=== PATIENT | female | born 1970 | race Caucasian/White ===

== ENCOUNTER 2023-08-21 21:19 | Outpatient (REF) | payer MEDICAID, SELFPAY ==
[2023-08-25 10:13] LABS: Age Gdln ACOG Testing Note (.); HPV Aptima Negative (Negative); IGP, Aptima HPV, rfx 16/18,45 Note (.)
== END 2023-08-21 21:20 | disposition home or self-care (01) ==
LOC: LAB 21:19
PROVIDERS: Visit Provider Obstetrics & Gynecology
DX: Z01.419 Encounter for gynecological examination (general) (routine) without abnormal findings (principal)
CPT/HCPCS: 87624; G0145

== ENCOUNTER 2023-09-12 08:04 | Outpatient (OUT) | payer MEDICAID, SELFPAY ==
--- NOTE | 2023-09-12 08:08 | MM_ITS ---
Patient: MESFIN WILLIAMSON Exam Date: 09/12/2023 : 1970 Gender:F Ordering : DR Garth Mcrae . Admission #: [id number] Family : Non-Staff Physician Order #: [id number] CLICK HERE TO VIEW EXAM RADIOLOGY REPORT PROCEDURE: MM TOMOSYNTHESIS SCREENING BI COMPARISON: MG MAMM CHARLES DIAG W CAD DIG, 02/22/2016. MG MAMM CHARLES SCRN W CAD DIG, 09/02/2013. INDICATIONS: Screening for malignant neoplasm Calculator Name NCI Breast Cancer Risk Assessment Tool 5 Year Breast Cancer Risk 0.80% Lifetime Breast Cancer Risk 5.50% Personal Breast Cancer No Personal Ovarian Cancer No Treatments None Family Cancers Father with lung cancer at age 65. LOCATION: [facility] BREAST COMPOSITION: Extremely dense, which lowers the sensitivity of mammography. FINDINGS: DIAGNOSTIC CATEGORY 2--BENIGN FINDING. NO CHANGE FROM COMPARISON. Interval reduction in breast size. Extremely dense nodular parenchymal pattern limits diagnostic sensitivity but is grossly stable.Scattered benign-appearing calcifications are present. Scattered benign-appearing lymph nodes are present. RIGHT BREAST: No significant suspicious finding. LEFT BREAST: No significant suspicious finding. RECOMMENDATIONS: ROUTINE MAMMOGRAM AND CLINICAL EVALUATION IN 12 MONTHS. PLEASE NOTE: A NORMAL MAMMOGRAM DOES NOT EXCLUDE THE POSSIBILITY OF BREAST CANCER. A CLINICALLY SUSPICIOUS PALPABLE LUMP SHOULD BE BIOPSIED. Dictated by: Mariusz Dillon MD on 09/12/2023 at 09:58 Approved by: Mariusz Dillon MD on 09/12/2023 at 09:59
--- NOTE | 2023-09-12 08:08 | XR_ITS ---
[address] [address] Patient Name: MESFIN WILLIAMSON MRN: [id number] date: 1970 Sex: F Assigned Patient Location: [facility] Current Patient Location: [facility] Accession/Order Number: [id number] Exam Date: 09/12/2023 08:30 Report Date: 09/12/2023 09:48 At the request of: MEEK MAHAJAN Procedure: XR DEXA axial skeleton EXAMINATION: XR DEXA axial skeleton, 09/12/2023 8:30 AM EDT HISTORY: Post menopausal state COMPARISON: None. TECHNIQUE: Dual-energy X-ray absorptiometry (DEXA) bone density study performed for the axial skeleton. HISTORY: Post menopausal state FINDINGS: Bone mineral density AP spine L1-L4 measures 1.300 g/sq cm. T score 1.0. WHO classification: Normal. Lowest bone mineral density right femoral trochanter measures 0.619 g/sq cm. T score -2.0. WHO classification: Osteopenia XR/XR DEXA axial skeleton IMPRESSION: Osteopenia. Moderate fracture risk Electronically authenticated by: BIANCA FRIEDMAN Date: 09/12/2023 09:48
== END 2023-09-12 08:05 | disposition home or self-care (01) ==
LOC: MAMMO 08:05
PROVIDERS: Visit Provider Obstetrics & Gynecology
DX: Z12.31 Encounter for screening mammogram for malignant neoplasm of breast (principal); Z78.0 Asymptomatic menopausal state; Z80.1 Family history of malignant neoplasm of trachea, bronchus and lung; M85.80 Other specified disorders of bone density and structure, unspecified site
CPT/HCPCS: 77063; 77067; 77080

== ENCOUNTER 2024-08-26 20:28 | Outpatient (REF) | payer MEDICAID, SELFPAY ==
--- OUTSIDE RECORDS SUMMARY | 2024-08-26 20:33 | XMS_ITS | CCD ---
Author Organization [facility] Inform ion Partnership [facility] Care Team Providers Care Cpas Name Role Phone DR CHRISTI SRINIVASAN Attending Unavailable ZARINA, DR CHRISTI Garcia Consulting Unavailable ZARINA, DR CHRISTI Garcia Primary Care Unavailable ZARINA, DR CHRISTI Garcia Admitting Unavailable KEYSHAWN, DR EDEN Consulting Unavailable KEYSHAWN, DR EDEN Admitting Unavailable KEYSHAWN, DR EDEN Attending Unavailable ZARINA, DR CHRISTI Garcia Primary Care Unavailable Grace Momin. Primary Care Physician [phone] AKILA SHARMA Attending Unavailable GRACE MOMIN Referring Unavailable Grace Momin Attending Unavailable Grace Momin Attending Unavailable Grace Momin Attending Unavailable Grace Momin. Attending Unavailable Grace Momin Attending Unavailable Grace Momin Attending Unavailable Grace Momin Attending Unavailable Grace Momin Attending Unavailable Grace Momin Referring Unavailable Aubrey Glass Attending Unavailable Grace Momin Referring Unavailable Grace Momin Admitting Unavailable Grace Momin Attending Unavailable Allergies Allergy Classification Reported Allergen(s) Allergy Type Date of Onset Reaction(s) Facility Aspirin (1 source) Aspirin; Translations: [aspirin] Drug Allergy Unknown (qualifier value) [facility] (2 sources) Aspirin; Translations: [aspirin] Drug Allergy 3 [facility] (1 source) Codeine Drug Allergy [facility] (1 source) metroNIDAZOLE Drug Allergy [facility] (2 sources) Aspirin; Translations: [aspirin] Drug Allergy Unknown (qualifier value) [facility] Medications Current Medications Medication Drug Class(es) Dates Sig (Normalized) Sig (Original) amLODIPine 5 mg oral tablet (1 source) Dihydropyridine Calcium Channel Ann Start: 02-25-20 take 1 tablet by mouth once daily Norvasc 5 mg Tab 5 mg = 1 tab(s), Oral, Daily, # 90 tab(s), Refills(s) 0, Pharmacy: [facility]/pharmacy #[id number], 167.1, cm, 02/25/24 11:22:00 EDT, Height/Length Dosing, 55.7, kg, 02/25/24 11:22:00 EDT, Weight Dosing Start Date: 02/25/24 Status: Ordered Ascorbic Acid (2 sources) Vitamin C Start: 04-04-20 Vitamin C Refills(s) 0 Start Date: 04/04/24 Status: Ordered hydroCHLOROthiazide 25 mg oral tablet (3 sources) Thiazide Diuretic Start: 04-03-20 take 1 tablet by mouth once daily hydrochlorothiazide 25 mg Tab 25 mg = 1 tab(s), Oral, Daily, # 90 tab(s), Refills(s) 0, [id number], cm, 04/03/24 8:54:00 EDT, Height/Length Dosing, 53.5, kg, 04/03/24 8:54:00 EDT, Weight Dosing Start Date: 04/03/24 Status: Ordered Start: 01-14-2024 take 1 tablet by leslye th once daily hydrochlorothiazide 25 mg Tab 25 mg = 1 tab(s), Oral, Daily, # 90 tab(s), Refills(s) 0, Pharmacy: [facility]/pharmacy #[id number], 167.1, cm, 01/14/24 9:37:00 EST, Height/Length Dosing, 56.1, kg, 01/14/24 9:37:00 EST, Weight Dosing Start Date: 01/14/24 Status: Ordered losartan potassium 100 mg oral tablet (3 sources) Angiotensin 2 Receptor Ann Start: 04-03-2024 take 1 tablet by mouth once daily losartan 100 mg Tab 100 mg = 1 tab(s), Oral, Daily, # 90 tab(s), Refills(s) 0, Pharmacy: [facility]/pharmacy #[id number], 167, cm, 04/03/24 8:54:00 EDT, Height/Length Dosing, 53.5, kg, 04/03/24 8:54:00 EDT, Weight Dosing Start Date: 04/03/24 Status: Ordered Start: 01-14-2024 take 1 tablet by leslye th once daily losartan 100 mg Tab 100 mg = 1 tab(s), Oral, Daily, # 90 tab(s), Refills(s) 0, Pharmacy: [facility]/pharmacy #[id number], 167.1, cm, 01/14/24 9:37:00 EST, Height/Length Dosing, 56.1, kg, 01/14/24 9:37:00 EST, Weight Dosing Start Date: 01/14/24 Status: Ordered potassium chloride 10 meq extended release oral capsule (2 sources) Start: 04-04-2024 potassium chlo ride 10 mEq Cap-ER Refills(s) 0 Start Date: 04/04/24 Status: Ordered rimegepant 75 mg disintegrating oral tablet (3 sources) Start: 02-25-2024 take 1 tablet by mouth once Nurtec ODT 75 mg oral tablet, disintegrating 75 mg = 1 tab(s), Oral, Once, # 14 tab(s), Refills(s) 0, [id number] 167.[facility], cm, 02/25/24 11:22:00 EDT, Height/Length Dosing, 55.7, kg, 02/25/24 11:22:00 EDT, Weight Dosing Start Date: 02/25/24 Status: Ordered Problems Problem Classification Problem Date Documented Da te Episodic/Chronic Anxiety disorders (3 sources) Anxiety 03-28-2023 Chronic Essential hypertension (4 sources) Hypertensive disorder; Translations: [Essential hypertension] Onset: 04-04-2024 01-14-2024 Chronic Headache; including migraine (6 sources) Migraine 01-14-2024 Chronic Immunizations and screening for infectious disease (1 source) Encounter for screening for human papillomavirus (HPV); Translations: [ENC SCREENING HUMAN PAPILLOMAVIRUS] Onset: 08-17-2022 Episodic Malaise and fatigue (10 sources) Other fatigue; Translations: [Fatigue] Onset: 10-09-2022 Episodic Mood disorders (3 sources) Depressive disorder 03-28-2023 Chronic Osteoarthritis (3 sources) Osteoarthritis 02-25-2024 Chronic Other nervous system disorders (3 sources) Carpal tunnel syndrome 03-28-2023 Chronic Other nutritional; endocrine; and metabolic disorders (1 source) Abnormal weight loss; Translations: [ABNORMAL WEIGHT LOSS] Onset: 10-14-2022 Episodic Other screening for suspected conditions (not mental disorders or infectious disease) (5 sources) Encounter for screening for malignant neoplasm of cervix; Translations: [Abnormal results of cardiovascular function studies] Onset: 08-15-2022 Episodic Peripheral and visceral atherosclerosis (3 sources) Peripheral vascular disease 03-28-2023 Chronic Varicose veins of lower extremity (3 sources) Varicose veins of lower extremity 03-28-2023 Episodic Results Test Name Value Interpretation Reference Range Facility Family Medicine Office/Clini c Noteon 07-07-2024 Family Medicine Office/Clinic Note Family Medicine Office/Clinic Note HPI Staff Camryn is a 53 year old female presenting for one month follow up migraines, htn Patient is here for follow up on hypertension. How often are you checking your blood pressure? occasionally What are your average readings? _ Yearly BMP: none_ Headaches: Time of Onset: yesterday but it's gone Location: not addressed _ _ _ Typical headache frequency: couple times a week Prior headache work-up: none _ _ phq:4 phq9: 12 questions/concerns: is depressed would like something for it used to take amitriptylline or anything you feel is good and would help her gain weight History of Present Illness See staff HPI. Review of Systems PHQ Score Initial Depression Screen Score: 4 SCORE Detailed Depression Screen Score: 8 Total Depression Screen Score: 12 Physical Exam Vitals & Measurements T: 36.6 ?C(Temporal Artery) HR: 76(Peripheral) RR: 16 BP: 102/70 SpO2: 98% HT: 66 in HT: 167 cm WT: 51.6 kg WT: 113.52 lb BMI: 18.5 General: alert, no acute distress ENMT: oral mucosa moist, Cardiovascular: regular rate and rhythm, normal peripheral perfusion Respiratory: Lungs CTA, respirations non labored Extremities: no deformity, no trauma Neurological: oriented x 4, LOC appropriate for age, CN II-XII intact, motor strength equal & normal bilaterally, speech normal Abdomen: Soft, Nontender, Non-distended, + BS Assessment/Plan 1. HTN (hypertension) (I10: Essential (primary) hypertension) At goal at this time. Will continue monitoring. Ordered: escitalopram, 10 mg = 1 tab(s), Oral, Daily, # 90 tab(s), Refills(s) 0, Pharmacy: [facility]/pharmacy #[id number], 167, cm, 07/07/24 16:12:00 EDT, Height/Length Dosing, 51.6, kg, 07/07/24 16:12:00 EDT, Weight Dosing Body Mass Index (BMI) documented 3008F Current tobacco smoker 1034F Depression Screening Positive 3354F Influenza immunization administered or previously received 4274F Most recent diastolic blood pressure <80 mm Hg 3078F Systolic BP <130 mm Hg (Most Recent) 3074F 2. Migraine (G43.909: Migraine, unspecified, not intractable, without status migrainosus) Will do [place]anner[place] samples as able to. Patient responds very well to this. Ordered: escitalopram, 10 mg = 1 tab(s), Oral, Daily, # 90 tab(s), Refills(s) 0, Pharmacy: [facility]/pharmacy #[id number], 167, cm, 07/07/24 16:12:00 EDT, Height/Length Dosing, 51.6, kg, 07/07/24 16:12:00 EDT, Weight Dosing Body Mass Index (BMI) documented 3008F Current tobacco smoker 1034F Depression Screening Positive 3354F Influenza immunization administered or previously received 4274F Most recent diastolic blood pressure <80 mm Hg 3078F Systolic BP <130 mm Hg (Most Recent) 3074F 3. BMI less than 19,adult (Z68.1: Body mass index [BMI] 19.9 or less, adult) Discussed diet and exercise. Ordered: escitalopram, 10 mg = 1 tab(s), Oral, Daily, # 90 tab(s), Refills(s) 0, Pharmacy: [facility]/pharmacy #[id number], 167, cm, 07/07/24 16:12:00 EDT, Height/Length Dosing, 51.6, kg, 07/07/24 16:12:00 EDT, Weight Dosing Body Mass Index (BMI) documented 3008F Current tobacco smoker 1034F Depression Screening Positive 3354F Influenza immunization administered or previously received 4274F Most recent diastolic blood pressure <80 mm Hg 3078F Systolic BP <130 mm Hg (Most Recent) 3074F 4. Smoker (F17.200: Nicotine dependence, unspecified, uncomplicated) Encouraged the patient to stop smoking. Discussed with patient if she continues to lose weight we will need to do a CT head abdomen and pelvis. Patient does not want to do this at this time. Ordered: escitalopram, 10 mg = 1 tab(s), Oral, Daily, # 90 tab(s), Refills(s) 0, Pharmacy: [facility]/pharmacy #[id number], 167, cm, 07/07/24 16:12:00 EDT, Height/Length Dosing, 51.6, kg, 07/07/24 16:12:00 EDT, Weight Dosing Body Mass Index (BMI) documented 3008F Current tobacco smoker 1034F Depression Screening Positive 3354F Influenza immunization administered or previously received 4274F Most recent diastolic blood pressure <80 mm Hg 3078F Systolic BP <130 mm Hg (Most Recent) 3074F 5. Depression (F32.A: Depression, unspecified) Will do Lexapro. Follow-up in 6 weeks. Patient did not want to talk about what was causing her depression today. Ordered: escitalopram, 10 mg = 1 tab(s), Oral, Daily, # 90 tab(s), Refills(s) 0, Pharmacy: [facility]/pharmacy #[id number], 167, cm, 07/07/24 16:12:00 EDT, Height/Length Dosing, 51.6, kg, 07/07/24 16:12:00 EDT, Weight Dosing Orders: metoprolol, 25 mg = 1 tab(s), Oral, Daily, # 30 tab(s), Refills(s) 0, Pharmacy: [facility]/pharmacy #[id number], 167, cm, 06/05/24 9:44:00 EDT, Height/Length Dosing, 52.7, kg, 06/05/24 9:44:00 EDT, Weight Dosing metoprolol, 25 mg = 1 tab(s), Oral, Daily, # 90 tab(s), Refills(s) 1, Pharmacy: [facility]/pharmacy #[id number], 167, cm, 06/05/24 9:44:00 EDT, Height/Length Dosing, 52.7, kg, 06/05/24 9:44:00 EDT, Weight Dosing Follow-up No qualifying data available Patient Education BMI for Adults Problem List/Past Medical History Ongoing Anxiety (more content not included)... Normal [facility] Comment on above: Result Comment: Elec tronically Signed By: Grace Momin MD\.br\Date and Time Signed: 07/07/24 16:45 EDT Ambulatory Visit Summaryon 0 06-05-2024 Ambulatory Visit Summary Ambulatory Visit Summary CAMRYN WILLIAMSON :1970 Visit Date:06/05/2024 Ambulatory Visit Instructions Your Diagnosis HTN (hypertension) Migraine BMI less than 19,adult Smoker Your Care Team Attending Physician - Grace Momin MD Primary Care Physician - Grace Momin MD This Is Your Medications List ascorbic acid (Vitamin C) hydrochlorothiazide (hydrochlorothiazide 25 mg Tab) losartan (losartan 100 mg Tab) potassium chloride (potassium chloride 10 mEq Cap-ER) rimegepant (Nurtec ODT 75 mg oral tablet, disintegrating) Procedures Performed Bilateral tubal ligation, Breast surgery, Dilatation, History of hysterectomy, Laparoscopy. Discharge Vitals Temperature (Oral) 36.8 ?C Heart Rate (Peripheral) 86 Respiratory Rate 16 Blood Pressure 160/92 Height 167 cm Height 66 in Weight 52.7 kg Weight 115.94 lb BMI 18.9 What to do next Scheduled Follow-Up Appointments 2023 1:00 PM EDT With: Grace Momin MD Where: [facility] [address] [address]- Medications What How Much When Why Instructions Unchanged ascorbic acid (Vitamin C) Unchanged hydrochlorothiazide (hydrochlorothiazide 25 mg Tab) 1 Tablets By Mouth Every day Migraine HTN (hypertension) BMI 20.0-20.9, adult Smoker PVD (peripheral vascular disease) Anxiety Depression Unchanged losartan (losartan 100 mg Tab) 1 Tablets By Mouth Every day Migraine HTN (hypertension) BMI 20.0-20.9, adult Smoker PVD (peripheral vascular disease) Anxiety Depression Unchanged potassium chloride (potassium chloride 10 mEq Cap-ER) Unchanged rimegepant (Nurtec ODT 75 mg oral tablet, disintegrating) 1 Tablets By Mouth Once Allergies aspirin (Unknown) Problems Ongoing - Any problem that you are currently receiving treatment for. Anxiety Carpal tunnel syndrome Decreased stamina Depression Fatigue HTN (hypertension) Migraine Migraines Nonhealing skin ulcer Osteoarthritis PVD (peripheral vascular disease) Shingles Varicose veins of legs Patient Survey You may receive a survey via text or e-mail asking about your office visit. Please share your experience with us by completing your survey. We appreciate your feedback and thank you for choosing us for your care. Jenifer Estrella [facility] Family Medicine Office/Clini c Noteon 06-05-2024 Family Medicine Office/Clinic Note Family Medicine Office/Clinic Note HPI Staff Camryn is a 53 year old female presenting for 2 month follow up htn and migraines Patient is here for follow up on hypertension. How often are you checking your blood pressure? couple times a week What are your average readings? 140-160's over 71 Yearly BMP: ?? Headaches: Time of Onset: had one yesterday not today Location: not addressed frontal behind eyes_ _ _ Typical headache frequency: couple times a week Prior headache work-up: none _ questions/concerns: on back where had shingles, she has area where she doesn't have any feeling there. The shingles did clear up and didn't get any worse after seen here History of Present Illness - See staff HPI. Review of Systems PHQ Score Initial Depression Screen Score: 0 SCORE Physical Exam Vitals & Measurements T: 36.8 ?C(Oral) HR: 86(Peripheral) RR: 16 BP: 160/92 SpO2: 98% HT: 66 in HT: 167 cm WT: 52.7 kg WT: 115.94 lb BMI: 18.9 General: alert, no acute distress ENMT: oral mucosa moist, Cardiovascular: regular rate and rhythm, normal peripheral perfusion Respiratory: Lungs CTA, respirations non labored Extremities: no deformity, no trauma Neurological: oriented x 4, LOC appropriate for age, CN II-XII intact, motor strength equal & normal bilaterally, speech normal Abdomen: Soft, Nontender, Non-distended, + BS Assessment/Plan 1. HTN (hypertension) (I10: Essential (primary) hypertension) - Not at goal. - Use BB to help with Bps and Migraines Ordered: Body Mass Index (BMI) documented 3008F Current tobacco smoker 1034F Depression Screening Negative 3352F Influenza immunization administered or previously received 4274F Most recent diastolic blood pressure >=90 mm Hg 3080F Most recent systolic blood pressure >= 140 mm Hg 3077F 2. Migraine (G43.909: Migraine, unspecified, not intractable, without status migrainosus) - Will try Nurtec again as its preferrred first line. - Pt had great releif with samples - Pt states 18 migraine days this month Ordered: Body Mass Index (BMI) documented 3008F Current tobacco smoker 1034F Depression Screening Negative 3352F Influenza immunization administered or previously received 4274F Most recent diastolic blood pressure >=90 mm Hg 3080F Most recent systolic blood pressure >= 140 mm Hg 3077F 3. BMI less than 19,adult (Z68.1: Body mass index [BMI] 19.9 or less, adult) Ordered: Body Mass Index (BMI) documented 3008F Current tobacco smoker 1034F Depression Screening Negative 3352F Influenza immunization administered or previously received 4274F Most recent diastolic blood pressure >=90 mm Hg 3080F Most recent systolic blood pressure >= 140 mm Hg 3077F 4. Smoker (F17.200: Nicotine dependence, unspecified, uncomplicated) - Pt is down to 5 cigs a day. Goal is to be off in 1 month. Ordered: Body Mass Index (BMI) documented 3008F Current tobacco smoker 1034F Depression Screening Negative 3352F Influenza immunization administered or previously received 4274F Most recent diastolic blood pressure >=90 mm Hg 3080F Most recent systolic blood pressure >= 140 mm Hg 3077F Orders: metoprolol, 25 mg = 1 tab(s), Oral, Daily, # 30 tab(s), Refills(s) 0, Pharmacy: [facility]/pharmacy #[id number], 167, cm, 06/05/24 9:44:00 EDT, Height/Length Dosing, 52.7, kg, 06/05/24 9:44:00 EDT, Weight Dosing rimegepant, 75 mg = 1 tab(s), Oral, Once, # 14 tab(s), Refills(s) 0, Pharmacy: [facility]/pharmacy #[id number], 167, cm, 06/05/24 9:44:00 EDT, Height/Length Dosing, 52.7, kg, 06/05/24 9:44:00 EDT, Weight Dosing Follow-up No qualifying data available Patient Education Hypertension, Adult Problem List/Past Medical History Ongoing Anxiety Carpal tunnel syndrome Decreased stamina Depression Fatigue HTN (hypertension) Migraine Migraines Nonhealing skin ulcer Osteoarthritis PVD (peripheral vascular disease) Shingles Varicose veins of legs Historical No qualifying data Procedure/Surgical History Bilateral tubal ligation, Breast surgery, Dilatation, History of hysterectomy, Laparoscopy. Medications hydrochlorothiazide 25 mg Tab, 25 mg= 1 tab(s), Oral, Daily losartan 100 mg Tab, 100 mg= 1 tab(s), Oral, Daily metoprolol succinate 25 mg ER Tab, 25 mg= 1 tab(s), Oral, Daily Nurtec ODT 75 mg oral tablet, disintegrating, 75 mg= 1 tab(s), Oral, Once potassium chloride 10 mEq Cap-ER Vitamin C Allergies aspirin (Unknown) Social History Tobacco 4 or less cigarettes(less than 1/4 pack)/day in last 30 days Tobacco Use:. Cigarettes, 06/05/2024 Family History Acute myocardial infarction: Mother. Alcoholism: Father and Brother. Hypertension: Mother. Immunizations Vaccine Date Status influenza virus vaccine, inactivated 08/12/2023 Recorded zoster vaccine, inactivated 01/20/2023 Recorded zoster vaccine, inactivated 10/04/2022 Recorded pneumococcal 20-valent conjugate vaccine 09/04/2022 Recorded influenza virus vaccine, inactivated 08/28 (more content not included)... Normal [facility] Comment on above: Result Comment: Elec tronically Signed By: Davi ROBLES, Grace Pittman\.br\Date and Time Signed: 06/05/24 09:54 EDT Physician Referralon 024 Physician Referral [phone] 022 [id number] TIFF Normal [facility] Family Medicine Office/Clini c Noteon 05-05-2024 Family Medicine Office/Clinic Note HPI Staff Camryn is a 53 year old female presenting for acute visit Acute: rash on breast, ? shingles and feels she pulled a muscle in her shoulder Onset: started as a couple bumps/bites, then under the right breast and around the side, been there about a week and a half. some pain/burning on Then shampooed carpets the other day and her shoulder hurts, not sure if it's the muscle or if it's the bumps causing the shoulder pain Also spot near right ankle, raw area been there for years History of Present Illness - See staff HPI. Review of Systems PHQ Score Initial Depression Screen Score: 0 SCORE Physical Exam Vitals & Measurements T: 36.7 ?C(Temporal Artery) HR: 82(Peripheral) RR: 16 BP: 152/80 SpO2: 98% HT: 66 in HT: 167 cm WT: 53.6 kg WT: 117.92 lb BMI: 19.22 Papular vesciclar Rash noted in a dermatomal spread on the L T4 line - Shallow ulcer noted on the L medial aspect of the foot. Assessment/Plan 1. Shingles (B02.9: Zoster without complications) - Will add steriods - No antivirals at this time as its been almost a week. - Pain control with Steroids Ordered: methylPREDNISolone, = 1 packet(s), Oral, As Directed, as directed on package labeling, X 6 day(s), # 21 tab(s), Refills(s) 0, Pharmacy: [id number], 167, cm, 05/05/24 18:15:00 EDT, Height/Length Dosing, 53.6, kg, 05/05/24 18:15:00 EDT, Weight Dosing Body Mass Index (BMI) documented 3008F Current tobacco smoker 1034F Depression Screening Negative 3352F [facility] [place] Influenza immunization administered or previously received 4274F Most recent diastolic blood pressure 80-89 mm Hg 3079F Most recent systolic blood pressure >= 140 mm Hg 3077F 2. HTN (hypertension) (I10: Essential (primary) hypertension) - Elevated today but patient had fear of getting a shot. - Will recheck in 1 month Ordered: methylPREDNISolone, = 1 packet(s), Oral, As Directed, as directed on package labeling, X 6 day(s), # 21 tab(s), Refills(s) 0, Pharmacy: [id number], 167, cm, 05/05/24 18:15:00 EDT, Height/Length Dosing, 53.6, kg, 05/05/24 18:15:00 EDT, Weight Dosing Body Mass Index (BMI) documented 3008F Current tobacco smoker 1034F Depression Screening Negative 3352F [facility] [place] Influenza immunization administered or previously received 4274F Most recent diastolic blood pressure 80-89 mm Hg 3079F Most recent systolic blood pressure >= 140 mm Hg 3077F 3. Nonhealing skin ulcer (L98.499: Non-pressure chronic ulcer of skin of other sites with unspecified severity) - Will send to derm as I am unsure what caused this. - With it not healing for over a year I am concern what the cause could be Ordered: methylPREDNISolone, = 1 packet(s), Oral, As Directed, as directed on package labeling, X 6 day(s), # 21 tab(s), Refills(s) 0, Pharmacy: [facility]/pharmacy #[id number], 167, cm, 05/05/24 18:15:00 EDT, Height/Length Dosing, 53.6, kg, 05/05/24 18:15:00 EDT, Weight Dosing Body Mass Index (BMI) documented 3008F Current tobacco smoker 1034F Depression Screening Negative 3352F [facility] [place] Ref[place] Influenza immunization administered or previously received 4274F Most recent diastolic blood pressure 80-89 mm Hg 3079F Most recent systolic blood pressure >= 140 mm Hg 3077F 4. Body mass index (BMI) of 19 or less in adult (Z68.1: Body mass index [BMI] 19.9 or less, adult) Ordered: methylPREDNISolone, = 1 packet(s), Oral, As Directed, as directed on package labeling, X 6 day(s), # 21 tab(s), Refills(s) 0, Pharmacy: [facility]/pharmacy #[id number], 167, cm, 05/05/24 18:15:00 EDT, Height/Length Dosing, 53.6, kg, 05/05/24 18:15:00 EDT, Weight Dosing Body Mass Index (BMI) documented 3008F Current tobacco smoker 1034F Depression Screening Negative 3352F Influenza immunization administered or previously received 4274F Most recent diastolic blood pressure 80-89 mm Hg 3079F Most recent systolic blood pressure >= 140 mm Hg 3077F 5. Smoker (F17.200: Nicotine dependence, unspecified, uncomplicated) Ordered: methylPREDNISolone, = 1 packet(s), Oral, As Directed, as directed on package labeling, X 6 day(s), # 21 tab(s), Refills(s) 0, Pharmacy: [facility]/pharmacy #[id number], 167, cm, 05/05/24 18:15:00 EDT, Height/Length Dosing, 53.6, kg, 05/05/24 18:15:00 EDT, Weight Dosing Body Mass Index (BMI) documented 3008F Current tobacco smoker 1034F Depression Screening Negative 3352F Influenza immunization administered or previously received 4274F Most recent diastolic blood pressure 80-89 mm Hg 3079F Most recent systolic blood pressure >= 140 mm Hg 3077F Follow-up No qualifying data available Patient Education Hypertension, Adult Problem List/Past Medical History Ongoing Anxiety Carpal tunnel syndrome Decreased stamina Depression Fatigue HTN (hypertension) Migraine Migraines Nonhealing skin ulcer Osteoarthritis PVD (peripheral vascular disease) Shingles Varicose veins of legs Historical No qualifying (more content not included)... Normal [facility] Comment on above: Result Comment: Elec tronically Signed By: Davi ROBLES, Grace Pittman\.br\Date and Time Signed: 05/05/24 18:25 EDT Patient Educationon 05-05-20 Patient Education Cardiovascular Hypertension, Adult High blood pressure (hypertension) is when the force of blood pumping through the arteries is too strong. The arteries are the blood vessels that carry blood from the heart throughout the body. Hypertension forces the heart to work harder to pump blood and may cause arteries to become narrow or stiff. Untreated or uncontrolled hypertension can lead to a heart attack, heart failure, a stroke, kidney disease, and other problems. A blood pressure reading consists of a higher number over a lower number. Ideally, your blood pressure should be below 120/80. The first ( top ) number is called the systolic pressure. It is a measure of the pressure in your arteries as your heart beats. The second ( bottom ) number is called the diastolic pressure. It is a measure of the pressure in your arteries as the heart relaxes. What are the causes? The exact cause of this condition is not known. There are some conditions that result in high blood pressure. What increases the risk? Certain factors may make you more likely to develop high blood pressure. Some of these risk factors are under your control, including: ? Smoking. ? Not getting enough exercise or physical activity. ? Being overweight. ? Having too much fat, sugar, calories, or salt (sodium) in your diet. ? Drinking too much alcohol. Other risk factors include: ? Having a personal history of heart disease, diabetes, high cholesterol, or kidney disease. ? Stress. ? Having a family history of high blood pressure and high cholesterol. ? Having obstructive sleep apnea. ? Age. The risk increases with age. What are the signs or symptoms? High blood pressure may not cause symptoms. Very high blood pressure (hypertensive crisis) may cause: ? Headache. ? Fast or irregular heartbeats (palpitations). ? Shortness of breath. ? Nosebleed. ? Nausea and vomiting. ? Vision changes. ? Severe chest pain, dizziness, and seizures. How is this diagnosed? This condition is diagnosed by measuring your blood pressure while you are seated, with your arm resting on a flat surface, your legs uncrossed, and your feet flat on the floor. The cuff of the blood pressure monitor will be placed directly against the skin of your upper arm at the level of your heart. Blood pressure should be measured at least twice using the same arm. Certain conditions can cause a difference in blood pressure between your right and left arms. If you have a high blood pressure reading during one visit or you have normal blood pressure with other risk factors, you may be asked to: ? Return on a different day to have your blood pressure checked again. ? Monitor your blood pressure at home for 1 week or longer. If you are diagnosed with hypertension, you may have other blood or imaging tests to help your health care provider understand your overall risk for other conditions. How is this treated? This condition is treated by making healthy lifestyle changes, such as eating healthy foods, exercising more, and reducing your alcohol intake. You may be referred for counseling on a healthy diet and physical activity. Your health care provider may prescribe medicine if lifestyle changes are not enough to get your blood pressure under control and if: ? Your systolic blood pressure is above 130. ? Your diastolic blood pressure is above 80. Your personal target blood pressure may vary depending on your medical conditions, your age, and other factors. Follow these instructions at home: Eating and drinking ? Eat a diet that is high in fiber and potassium, and low in sodium, added sugar, and fat. An example of this eating plan is called the DASH diet. DASH stands for Dietary Approaches to Stop Hypertension. To eat this way: ? Eat plenty of fresh fruits and vegetables. Try to fill one half of your plate at each meal with fruits and vegetables. ? Eat whole grains, such as whole-wheat pasta, brown rice, or whole-grain bread. Fill about one fourth of your plate with whole grains. ? Eat or drink low-fat dairy products, such as skim milk or low-fat yogurt. ? Avoid fatty cuts of meat, processed or cured meats, and poultry with skin. Fill about one fourth of your plate with lean proteins, such as fish, chicken without skin, beans, eggs, or tofu. ? Avoid pre-made and processed foods. These tend to be higher in sodium, added sugar, and fat. ? Reduce your daily sodium intake. Many people with hypertension should eat less than 1,500 mg of sodium a day. ? Do not drink alcohol if: ? Your health care provider tells you not to drink. ? You are , may be , or are planning to become . ? If you drink alcohol: ? Limit how much you have to: ? 0?1 drink a day for women. ? 0?2 drinks a day for men. ? Know how much alcohol is in your drink. In the [place] one drink equals one 12 oz bottle of beer (355 mL), one 5 oz glass of wine (148 mL), or one 1? oz glass (more content not included)... Normal [facility] ECG 12-Leadon 04-04-2024 ECG 12-Lead [id number] IFF Normal [facility] Heart and Vascular Office/Cl inic Noteon 04-04-2024 Heart and Vascular Office/Clinic Note Chief Complaint here to establish care - abn lexiscan History of Present Illness The patient is a 53-year-old female with no prior history of coronary artery disease, with past medical history of hypertension, who presents for cardiac evaluation following a myocardial perfusion imaging study, which was ordered in a context of dizziness and lightheadedness. She specifically reports no chest pain, shortness of breath, palpitations, syncope or presyncope. She does admit to significant weakness, dizziness and lightheadedness, following the initiation of antihypertensive therapy. Family history is notorious for coronary artery disease in her mother, who, according to her, had an open heart surgery in her 60s. Review of Systems ROS - Provider Constitutional: no fever, no chills, no fatigue Skin:no rash, no lesions ENMT: no ear pain, no sore throat, no congestion. Respiratory: no shortness of breath, no cough, no wheezing. Cardiovascular: no chest pain, no palpitations, no edema. Gastrointestinal: no nausea, no vomiting, no diarrhea, no GI bleeding. Genitourinary: no dysuria, no frequencyno hematuria Musculoskeletal: no back pain, no trauma. Neurologic: no headache, yes dizziness, no numbness, no weakness. Psychiatric: no sleeping problems, no irritability, no mood swings/depression. Heme/Lymph: no bleeding tendency, no bruising tendency, no petechiae, Allergy/Immuno logic: no seasonal allergies, no food allergies, no recurrent infections Physical Exam Vitals & Measurements HR: 94(Peripheral) BP: 138/90 SpO2: 99% HT: 66 in HT: 167 cm WT: 53.5 kg WT: 117.7 lb BMI: 19.18 General: alert, no acute distress Neck: Supple, noJVD nocarotid bruit Cardiovascular: regular rate and rhythm, no murmur normal peripheral perfusion Respiratory: Lungs CTAB, respirations non labored Extremities: no edema left lower extremity. no edema right lower extremity Neurological: oriented x 4, LOC appropriate for age, speech normal Skin: Warm, dry, intact- no rash or concerning lesions Procedure (03/27/2024 15:53 EDT NM Myocardial Spect Rest/Stress 1 Day) DATE: 03/27/2024 PROCEDURE: Lexiscan nuclear stress test. REFERRING PHYSICIAN: Grace Momin M.D. INDICATIONS: Coronary artery disease. PROCEDURE DETAILS: The patient was stressed according to the Lexiscan protocol without events. The patient received Lexiscan infusion and did not have any symptoms. The blood pressure and heart rate response were appropriate. EKG was normal sinus rhythm and normal EKG. During infusion there were no EKG changes. There was no arrhythmia. Recovery was normal. The patient received 9.2 mCi of Cardiolite for rest images and 29.7 mCi of Cardiolite for stress images. Review of raw images did not demonstrate motion or attenuation artifact. FINDINGS: Uptake of the tracer was homogeneous with no identifiable ischemia or infarction. The TID ratio was 1.26. Ejection fraction was 64%. End-diastolic volume was 80 mL. CONCLUSIONS: Negative Lexiscan nuclear stress test for ischemia or infarction. Borderline elevated TID at 1.26 of uncertain clinical significance. Due to elevated TID, overall this would be an intermediate-risk stress test. cc: Grace Momin M.D. [1] Assessment/Plan 1. Equivocal stress test (R94.39: Abnormal result of other cardiovascular function study) The stress test was independently reviewed. There is no evidence of clear-cut ischemic. Transient ischemic dilatation is present, however, is borderline. At this juncture, I would like to order a plain exercise stress test to evaluate exercise tolerance, blood pressure dynamics. I have a suspicion that the patient's symptoms are related to antihypertensive therapy and normalization of her blood pressure. 2. HTN (hypertension) (I10: Essential (primary) hypertension) Blood pressure is managed by primary services. It is well-controlled. Follow-up No qualifying data available After the stress test Problem List/Past Medical History Ongoing Anxiety Carpal tunnel syndrome Decreased stamina Depression Fatigue HTN (hypertension) Migraine Migraines Osteoarthritis PVD (peripheral vascular disease) Varicose veins of legs Historical No qualifying data Procedure/Surgical History Bilateral tubal ligation, Breast surgery, Dilatation, History of hysterectomy, Laparoscopy. Medications hydrochlorothiazide 25 mg Tab, 25 mg= 1 tab(s), Oral, Daily losartan 100 mg Tab, 100 mg= 1 tab(s), Oral, Daily Nurtec ODT 75 mg oral tablet, disintegrating, 75 mg= 1 tab(s), Oral, Once, Unable to obtain: getting samples potassium chloride 10 mEq Cap-ER Vitamin C Allergies aspirin (Unknown) Social History Tobacco 4 or less cigarettes(less than 1/4 pack)/day in last 30 days Tobacco Use:. Cigarettes, 04/04/2024 Family History Acute myocardial infarction: Mother. Alcoholism: Father and Brother. Hypertension: Mother. Immunizations Vaccine Date Status influenza vir (more content not included)... Normal [facility] Comment on above: Result Comment: Elec tronically Signed By: Quan ROBLES, Aubrey Amor\.perico\Date and Time Signed: 04/04/24 11:14 EDT Physician Orderon 04-04-2024 Physician Order [id number] IFF Normal [facility] Ambulatory Visit Summaryon 0 04-03-2024 Ambulatory Visit Summary CAMRYN WILLIAMSON :1970 Visit Date:04/03/2024 Ambulatory Visit Instructions Your Diagnosis HTN (hypertension) Migraine PVD (peripheral vascular disease) Decreased stamina Smoker BMI less than 19,adult Your Care Team Attending Physician - Grace Momin MD Primary Care Physician - Grace Momin MD This Is Your Medications List hydrochlorothiazide (hydrochlorothiazide 25 mg Tab) losartan (losartan 100 mg Tab) rimegepant (Nurtec ODT 75 mg oral tablet, disintegrating) [Image Removed: STOP]Stop taking these medications amlodipine (Norvasc 5 mg Tab) Procedures Performed Bilateral tubal ligation, Breast surgery, Dilatation, History of hysterectomy, Laparoscopy. Discharge Vitals Temperature (Oral) 36.5 ?C Heart Rate (Peripheral) 80 Respiratory Rate 16 Blood Pressure 136/82 Height 167 cm Height 66 in Weight 53.5 kg Weight 117.7 lb BMI 19.18 What to do next Scheduled Follow-Up Appointments 2023 9:30 AM EDT With: Grace Momin MD Where: [facility] [place] Invalid Interpretation Code Smoker [facility] Family Medicine Office/Clini c Noteon 04-03-2024 Family Medicine Office/Clinic Note HPI Staff Camryn is a 53 year old female presenting to discuss medication optimization after her recent stress test phq9: 4 questions/concerns: would like some nurteq samples if we have them, they worked well for her and insurance won't cover. No samples available trying the ubrelvy #6 given to patient History of Present Illness - See staff HPI Physical Exam Vitals & Measurements T: 36.5 ?C(Oral) HR: 80(Peripheral) RR: 16 BP: 136/82 SpO2: 98% HT: 66 in HT: 167 cm WT: 53.5 kg WT: 117.7 lb BMI: 19.18 General: alert, no acute distress ENMT: oral mucosa moist, Cardiovascular: regular rate and rhythm, normal peripheral perfusion Respiratory: Lungs CTA, respirations non labored Extremities: no deformity, no trauma Neurological: oriented x 4, LOC appropriate for age, CN II-XII intact, motor strength equal & normal bilaterally, speech normal Abdomen: Soft, Nontender, Non-distended, + BS Assessment/Plan 1. HTN (hypertension) (I10: Essential (primary) hypertension) - Bps are undercontrol. - No issues at this time. Ordered: hydrochlorothiazide, 25 mg = 1 tab(s), Oral, Daily, # 90 tab(s), Refills(s) 0, Pharmacy: [facility]/pharmacy #[id number], 167, cm, 04/03/24 8:54:00 EDT, Height/Length Dosing, 53.5, kg, 04/03/24 8:54:00 EDT, Weight Dosing losartan, 100 mg = 1 tab(s), Oral, Daily, # 90 tab(s), Refills(s) 0, Pharmacy: [facility]/pharmacy #[id number], 167, cm, 04/03/24 8:54:00 EDT, Height/Length Dosing, 53.5, kg, 04/03/24 8:54:00 EDT, Weight Dosing CBC w/ Auto Diff Comprehensive [place] [facility] [place] Lipid Panel 2. Migraine (G43.909: Migraine, unspecified, not intractable, without status migrainosus) - Needs samples - Out of [facility] - Will try ubrelvy Ordered: hydrochlorothiazide, 25 mg = 1 tab(s), Oral, Daily, # 90 tab(s), Refills(s) 0, Pharmacy: [facility]/pharmacy #[id number], 167, cm, 04/03/24 8:54:00 EDT, Height/Length Dosing, 53.5, kg, 04/03/24 8:54:00 EDT, Weight Dosing losartan, 100 mg = 1 tab(s), Oral, Daily, # 90 tab(s), Refills(s) 0, Pharmacy: [facility]/pharmacy #[id number], 167, cm, 04/03/24 8:54:00 EDT, Height/Length Dosing, 53.5, kg, 04/03/24 8:54:00 EDT, Weight Dosing CBC w/ Auto Diff Comprehensive Metabolic Panel Lipid Panel 3. PVD (peripheral vascular disease) (I73.9: Peripheral vascular disease, unspecified) - Pt is unsure where this diagnosis came from. - Will monitor Ordered: hydrochlorothiazide, 25 mg = 1 tab(s), Oral, Daily, # 90 tab(s), Refills(s) 0, Pharmacy: [facility]/pharmacy #[id number], 167, cm, 04/03/24 8:54:00 EDT, Height/Length Dosing, 53.5, kg, 04/03/24 8:54:00 EDT, Weight Dosing losartan, 100 mg = 1 tab(s), Oral, Daily, # 90 tab(s), Refills(s) 0, Pharmacy: [facility] #[id number], 167, cm, 04/03/24 8:54:00 EDT, Height/Length Dosing, 53.5, kg, 04/03/24 8:54:00 EDT, Weight Dosing CBC w/ Auto Diff Comprehensive Met[place] [facility] [place] Lipid Panel NM Myocardial Spect Rest/Stress 1 Day 4. Decreased stamina (R53.83: Other fatigue) - Concerned there is underlying CAD - Sending to Cardio since she has an elevated TID Ordered: CBC w/ Auto Diff Comprehensive Met[place] [facility] [place] Lipid Panel NM Myocardial Spect Rest/Stress 1 Day 5. Smoker (F17.200: Nicotine dependence, unspecified, uncomplicated) - Discussed smoking cessation. - Pt is cutting down. Ordered: hydrochlorothiazide, 25 mg = 1 tab(s), Oral, Daily, # 90 tab(s), Refills(s) 0, Pharmacy: [id number], 167, cm, 04/03/24 8:54:00 EDT, Height/Length Dosing, 53.5, kg, 04/03/24 8:54:00 EDT, Weight Dosing losartan, 100 mg = 1 tab(s), Oral, Daily, # 90 tab(s), Refills(s) 0, Pharmacy: [facility]/pharmacy #[id number], 167, cm, 04/03/24 8:54:00 EDT, Height/Length Dosing, 53.5, kg, 04/03/24 8:54:00 EDT, Weight Dosing Body Mass Index (BMI) documented 3008F CBC w/ Auto Diff Comprehensive Metabolic Panel Current tobacco smoker 1034F Depression Screening Negative 3352F Influenza immunization administered or previously received 4274F Lipid Panel Most recent diastolic blood pressure 80-89 mm Hg 3079F Systolic BP 130-139 mm Hg (Most Recent) 3075F 6. BMI less than 19,adult (Z68.1: Body mass index [BMI] 19.9 or less, adult) - BMI education uploaded Ordered: Body Mass Index (BMI) documented 3008F CBC w/ Auto Diff Comprehensive Metabolic Panel Current tobacco smoker 1034F Depression Screening Negative 3352F Influenza immunization administered or previously received 4274F Lipid Panel Most recent diastolic blood pressure 80-89 mm Hg 3079F Systolic BP 130-139 mm Hg (Most Recent) 3075F Follow-up No qualifying data available Problem List/Past Medical History Ongoing Anxiety Carpal tunnel syndrome Decreased stamina Depression Fatigue HTN (hypertension) Migraine Migraines Osteoarthritis PVD (peripheral vascular disease) Varicose veins of legs Historical No qualifying data Procedure/Surgical History Bilateral tubal ligation, Breast surgery, Dil (more content not included)... Normal [facility] Comment on above: Result Comment: Elec tronically Signed By: Davi ROBLES, Grace Pittman\.br\Date and Time Signed: 04/03/24 09:25 EDT Nurse Consultation Noteon Nurse Consultation Note Physical Exam Vitals & Measurements T: 36.5 ?C(Oral) HR: 80(Peripheral) RR: 16 BP: 136/82 SpO2: 98% HT: 66 in HT: 167 cm WT: 53.5 kg WT: 117.7 lb BMI: 19.18 Assessment/Plan 1. HTN (hypertension) (I10: Essential (primary) hypertension) 2. Migraine (G43.909: Migraine, unspecified, not intractable, without status migrainosus) 3. PVD (peripheral vascular disease) (I73.9: Peripheral vascular disease, unspecified) 4. Decreased stamina (R53.83: Other fatigue) 5. Smoker (F17.200: Nicotine dependence, unspecified, uncomplicated) 6. BMI less than 19,adult (Z68.1: Body mass index [BMI] 19.9 or less, adult) Medications hydrochlorothiazide 25 mg Tab, 25 mg= 1 tab(s), Oral, Daily losartan 100 mg Tab, 100 mg= 1 tab(s), Oral, Daily Nurtec ODT 75 mg oral tablet, disintegrating, 75 mg= 1 tab(s), Oral, Once, Unable to obtain: getting samples Allergies aspirin (Unknown) Immunizations Vaccine Date Status influenza virus vaccine, inactivated 08/12/2023 Recorded zoster vaccine, inactivated 01/20/2023 Recorded zoster vaccine, inactivated 10/04/2022 Recorded pneumococcal 20-valent conjugate vaccine 09/04/2022 Recorded influenza virus vaccine, inactivated 08/28/2022 Recorded SARS-CoV-2 (COVID-19) [id number] 07/31/2022 Recorded SARSCoV2 mRNA(abjgdqavg-mkjn-tdq ros) vac 03/01/2022 Recorded SARS-CoV-2 (COVID-19) mRNA BNT-162b2 vax 10/30/2021 Recorded influenza virus vaccine, inactivated 08/22/2021 Recorded SARS-CoV-2 (COVID-19) mRNA BNT-162b2 vax 02/08/2021 Recorded SARS-CoV-2 (COVID-19) mRNA BNT-162b2 vax 01/18/2021 Recorded influenza virus vaccine, inactivated 08/23/2020 Recorded diphtheria/pertussis, acel/tetanus adult 01/10/2020 Recorded influenza virus vaccine, inactivated 12/05/2019 Recorded influenza virus vaccine, inactivated 08/05/2019 Recorded influenza virus vaccine, inactivated 08/12/2018 Recorded diphtheria/pertussis, acel/tetanus adult 07/30/2018 Recorded influenza virus vaccine, inactivated 07/30/2018 Recorded influenza virus vaccine, inactivated 08/09/2017 Recorded influenza virus vaccine, inactivated 09/01/2016 Recorded influenza virus vaccine, inactivated 09/28/2015 Recorded influenza virus vaccine, inactivated 07/27/2014 Recorded Normal [facility] Physician Referralon 024 Physician Referral [id number]#[id number] TIFF Normal [facility] NM Myocardial Spect Rest/Str ess 1 Dayon 04-02-2024 NM Myocardial Spect Rest/Stress 1 Day Exam Date/Time: 03/27/2024 15:53 EDT Reason for Exam: I73.9;Other (please specify) Report DATE: 03/27/2024 PROCEDURE: Lexiscan nuclear stress test. REFERRING PHYSICIAN: Grace Momin M.D. INDICATIONS: Coronary artery disease. PROCEDURE DETAILS: The patient was stressed according to the Lexiscan protocol without events. The patient received Lexiscan infusion and did not have any symptoms. The blood pressure and heart rate response were appropriate. EKG was normal sinus rhythm and normal EKG. During infusion there were no EKG changes. There was no arrhythmia. Recovery was normal. The patient received 9.2 mCi of Cardiolite for rest images and 29.7 mCi of Cardiolite for stress images. Review of raw images did not demonstrate motion or attenuation artifact. FINDINGS: Uptake of the tracer was homogeneous with no identifiable ischemia or infarction. The TID ratio was 1.26. Ejection fraction was 64%. End-diastolic volume was 80 mL. CONCLUSIONS: Negative Lexiscan nuclear stress test for ischemia or infarction. Borderline elevated TID at 1.26 of uncertain clinical significance. Due to elevated TID, overall this would be an intermediate-risk stress test. cc: Grace Momin M.D. FINAL REPORT Signed (Electronic Signature): 04/02/2024 9:27 pm Signed by: Quentin Roth MD Transcribed by: JOEY Technologist: MICHELLE Technical Comments Rest Dose (mCi Tc99m Cardiolite): 9.2 Stress Dose (mCi Tc99M Cardiolite): 29.7 Normal [facility] Consent for Treatmenton 03-12 Consent for Treatment [id number] IFF Normal [facility] Insurance Correspondenceon 0 03-06-2024 Insurance Correspondence [id number]#[id number] TIFF Normal [facility] Family Medicine Office/Clini c Noteon 02-29-2024 Family Medicine Office/Clinic Note HPI Staff Camryn is a 53 year old female presenting for one month follow up htn, migraines GIL given Ubrelvy to evaluate response at todays visit Patient is here for follow up on hypertension. How often are you checking your blood pressure? Daily uses a wrist cuff What are your average readings? doesn't have list with her 140's over 87-92 Yearly BMP: ?? Headaches: Time of Onset: 2 days ago Location: occipital _ _ _ Typical headache frequency: 2 last week it varies, but not daily since started BP medication Prior headache work-up: not addressed _ _ used the nurteq samples and they helped would like more questions/concerns: when she gets up from painting or when she's bent over or on the ground working gets up and gets really dizzy and when carries groceries in the house she's totally exhausted and wore out from that little bit of an activity Can you rx her a regular bp unit she has a wrist one fingers and legs cramp up and fingers swell, ? arthritis History of Present Illness Camryn Williamson is a 53-year-old female who presents for 1 month follow-up. The patient owns a wrist blood pressure monitor, yet her blood pressure today is elevated, consistent with previous readings. The patient experiences mild exertional fatigue, lasting around 5 seconds, occurring mid-day or in the evening. She denies chest The patient's recent smoking habit has been limited, consuming approximately one pack of cigarettes every 3 to 4 days, typically smoking in the morning and before bedtime. The patient complains of bone pain in her fifth digit, occurring primarily at night, occasionally extending to her toes. She has not sought treatment for this pain. The frequency of the patient's migraines has decreased. She is currently managing them with Nurtec, finding it beneficial. Review of Systems PHQ Score Initial Depression Screen Score: 0 SCORE Physical Exam Vitals & Measurements T: 36.7 ?C(Oral) HR: 84(Peripheral) RR: 16 BP: 140/86 SpO2: 96% HT: 66 in HT: 167.1 cm WT: 55.7 kg WT: 122.54 lb BMI: 19.95 General: alert, no acute distress ENMT: oral mucosa moist, no pharyngeal erythema or exudate Cardiovascular: regular rate and rhythm, normal peripheral perfusion Respiratory: Lungs CTA, respirations non labored Extremities: no deformity, no trauma Neurological: oriented x 4, LOC appropriate for age, CN II-XII intact, motor strength equal & normal bilaterally, speech normal Assessment/Plan 1. Migraine (G43.909: Migraine, unspecified, not intractable, without status migrainosus) The patient's prescription for Nurtec, consisting of 14 tablets, will be refilled. She is advised to persist with the existing medication regimen. 2. HTN (hypertension) (I10: Essential (primary) hypertension) The patient's hypertension remains suboptimal. A follow-up appointment is scheduled for 1 month from now, during which Norvasc will be added to her treatment regimen. 3. Decreased stamina (R53.83: Other fatigue) Given her history of PVD, there is a concern for cardiogenic causes. At this juncture, a stress test will be conducted to rule out any cardiac issues. 4. Osteoarthritis (M19.90: Unspecified osteoarthritis, unspecified site) The patient is advised to take inbb-znt-atauzop medication. Should there be no improvement, further testing and treatment will be conducted. 5. PVD (peripheral vascular disease) (I73.9: Peripheral vascular disease, unspecified) Considering her history of PVD and her current smoking habits, it is prudent to rule out the presence of coronary artery disease via a stress test, as this is the cause of her decreased stamina. This plan was thoroughly discussed with the patient, who concurred. 6. Body mass index (BMI) of 19 or less in adult (Z68.1: Body mass index [BMI] 19.9 or less, adult) Provided education on BMI. 7. Smoker (F17.200: Nicotine dependence, unspecified, uncomplicated) Instructed patient on smoking cessation. Portions of this record may have been created with voice recognition artificial intelligence software, specifically [employer] and or [employer]. Substitutions may have occurred due to the inherent limitations of voice recognition and artificial intelligence software. ATTESTATION: Documentation services were performed after patient or guardian consented to allow [employer] to record this visit. JERAMY realty specialist and provider reviewed before signing. JERAMY: Ezra Negron. Follow-up No qualifying data available The patient is scheduled for a follow-up visit in 1 month. Problem List/Past Medical History Ongoing Anxiety Carpal tunnel syndrome Decreased stamina Depression Fatigue HTN (hypertension) Migraine Migraines Osteoarthritis PVD (peripheral vascular disease) Varicose veins of legs Historical No qualifying data Procedure/Surgical History Bilateral tubal ligation, Breast surgery, Dilatation, History of hystere (more content not included)... Normal [facility] Comment on above: Result Comment: Elec tronically Signed By: Grace Momin MD.br\Date and Time Signed: 02/29/24 09:45 EDT\.br\Electronically Co-Signed By: Ezra Negron\.br\Date and Time Co-Signed: 02/25/24 13:40 EDT Family Medicine Office/Clini c Noteon 01-15-2024 Family Medicine Office/Clinic Note HPI Staff Camryn is a 53 year old female presenting to [facility] Establish Care: History:anxiety, carpal tunnel, depression, PVD, varicose veins,migraines Any previous diagnosis: rheumatic fever, back spasms, fatigue History of seeing any specialist: When was your last doctors visit: 09/12/22 Last provider: Zarina Any recent labs: 10/09/22 Health Maintenance UTD: Colonoscopy: never Mammogram: UTD Pelvic/Pap: hysterectomy flu: refused Acute: wants BP checked 201/118 at home this morning right out of bed Current issues/complaints: needs to address the migraines getting them daily, lives on excedrin for migraines, History of Present Illness Camryn Williamson is a 53-year-old female who presents for an establish care and blood pressure recheck. The patient's previous healthcare provider was Dr. Srinivasan. Upon waking, her blood pressure measured 201/117 mmHg, which is significantly elevated. She abstains from coffee and soda, opting instead for water and Gatorade. It was only after her daughter gave that she became aware of her high blood pressure. Since then, she has been monitoring her blood pressure, which remains elevated. She is taking bymy-ugc-iqapuhd calcium supplements for her osteoporosis condition. She experiences daily migraines, primarily affecting her forehead. Her vision has been evaluated, but she has not previously been prescribed migraine medication. Excedrin Migraine has proven effective in managing her migraines. The patient's alcohol consumption varies between 1 to 2 coolers daily, occasionally opting for none. Her highest intake in a month is limited to 12 packs of Dominik's Hard Lemonade. She experienced rheumatic fever in childhood, which did not impact her cardiovascular health. She experiences back spasms and fatigue. She has a medical history that includes anxiety, carpal tunnel syndrome, depression, peripheral venous disorder, varicose veins, and migraines. Review of Systems PHQ Score Initial Depression Screen Score: 0 SCORE Physical Exam Vitals & Measurements T: 37.0 ?C(Temporal Artery) HR: 88(Peripheral) RR: 16 BP: 170/102 SpO2: 98% HT: 66 in HT: 167.1 cm WT: 56.15 kg WT: 123.53 lb BMI: 20.11 General: alert, no acute distress ENMT: oral mucosa moist, no pharyngeal erythema or exudate Cardiovascular: regular rate and rhythm, normal peripheral perfusion Respiratory: Lungs CTA, respirations non labored Extremities: no deformity, no trauma Neurological: oriented x 4, LOC appropriate for age, CN II-XII intact, motor strength equal & normal bilaterally, speech normal. Assessment/Plan 1. Migraine (G43.909: Migraine, unspecified, not intractable, without status migrainosus) The plan is to explore Nurtec and Ubrelvy treatments. However, Nurtec samples were not available. Ubrelvy will be administered, and the patient's response will be evaluated. 2. HTN (hypertension) (I10: Essential (primary) hypertension) The patient's blood pressure readings are significantly elevated. Initial treatment will begin with hydrochlorothiazide, followed by the addition of losartan after a 7-day interval. 3. BMI 20.0-20.9, adult (Z68.20: Body mass index [BMI] 20.0-20.9, adult) Educational materials on BMI have been provided. 4. Smoker (F17.200: Nicotine dependence, unspecified, uncomplicated) The patient has been advised to cease smoking. 5. PVD (peripheral vascular disease) (I73.9: Peripheral vascular disease, unspecified) There are no current issues related to PVD. 6. Anxiety (F41.9: Anxiety disorder, unspecified) The patient has no symptoms today. 7. Depression (F32.A: Depression, unspecified) Depression is within the target range, indicating the patient is in remission and not on medication. Portions of this record may have been created with voice recognition artificial intelligence software, specifically [employer], [employer] and or [employer]. Substitutions may have occurred due to the inherent limitations of voice recognition and artificial intelligence software. ATTESTATION: Documentation services were performed after patient or guardian consented to allow [employer] to record this visit. JERAMY realty specialist and provider reviewed before signing. JERAMY: Sedrickvie Rigor. Follow-up No qualifying data available The patient will have a follow-up in one month. Problem List/Past Medical History Ongoing Anxiety Carpal tunnel syndrome Depression Fatigue HTN (hypertension) Migraine Migraines PVD (peripheral vascular disease) Varicose veins of legs Historical No qualifying data Procedure/Surgical History Bilateral tubal ligation, Breast surgery, Dilatation, History of hysterectomy, Laparoscopy. Medications hydrochlorothiazide 25 mg Tab, 25 mg= 1 tab(s), Oral, Daily losartan 100 mg Tab, 100 mg= 1 tab(s), Oral, Daily Nurtec ODT 75 mg oral tablet, disintegrating, 75 mg= 1 tab(s), Oral, Once Allergies aspirin (Unknown) S (more content not included)... Normal [facility] Comment on above: Result Comment: Elec tronically Signed By: Grace Momin MD\.br\Date and Time Signed: 01/15/24 18:21 EST\.br\Electronically Co-Signed By: Ezra Negron\.br\Date and Time Co-Signed: 01/14/24 11:54 EST CBC AUTO DIFFon 10-09-2022 BASO # 0.0 103/ul Normal 0.0-0.1 [facility] Comment on above: Performed By: #### C BC #### [facility] [address] [place] [address] Dr. Rommel Ramirez Basophils/100 WBC (Bld) 0.3 % Normal 0.2-2.0 [facility] Comment on above: Performed By: #### C BC #### [facility] [address] [place] [address] Dr. Rommel Ramirez EO # 0.1 103/ul Normal 0.0-0.7 [facility] Comment on above: Performed By: #### C BC #### [facility] [address] [place] [address] Dr. Rommel Ramirez Eosinophils/100 WBC (Bld) 0.9 % Normal 0.9-7.0 [facility] Comment on above: Performed By: #### C BC #### [facility] [address] [place] [address] Dr. Rommel Ramirez Erythrocyte distribution width (RBC) [Ratio] 12.1 % Normal 11.0-15.0 [facility] Comment on above: Performed By: #### C BC #### [facility] [address] [place] [address] Dr. Rommel Ramirez Hematocrit (Bld) [Volume fraction] 40.1 % Normal 36.0-48.0 [facility] Comment on above: Performed By: #### C BC #### [facility] [address] [place] [address] Dr. Rommel Ramirez Hemoglobin (Bld) [Mass/Vol] 13.9 g/dL Normal 12.0-16.0 [facility] Comment on above: Performed By: #### C BC #### [facility] [address] [place] [address] Dr. Rommel Ramirez IG # 0.01 10e3/ul Normal 0.00-0.03 [facility] Comment on above: Performed By: #### C BC #### [facility] [address] [place] [address] Dr. Rommel Ramirez IG % 0.1 % Normal 0.0-0.5 [facility] Comment on above: Performed By: #### C BC #### [facility] [address] [place] [address] Dr. Rommel Ramirez LYMPH # 2.2 103/ul Normal 1.2-3.8 [facility] Comment on above: Performed By: #### C BC #### [facility] [address] [place] [address] Dr. Rommel Ramirez Lymphocytes/100 WBC (Bld) 32.4 % Normal 20.5-60.0 [facility] Comment on above: Performed By: #### C BC #### [facility] [address] [place] [address] Dr. Rommel Ramirez MANUAL DIFF REQ NO Normal [facility] Comment on above: Performed By: #### C BC #### [facility] [address] [place] [address] Dr. Rommel Ramirez MCH (RBC) [Entitic mass] 31.3 pg Normal 26.7-34.0 [facility] Comment on above: Performed By: #### C BC #### [facility] [address] [place] [address] Dr. Rommel Ramirez MCHC (RBC) [Mass/Vol] 34.7 g/dL Normal 29.9-35.2 [facility] Comment on above: Performed By: #### C BC #### [facility] [address] [place] [address] Dr. Rommel Ramirez MCV (RBC) [Entitic vol] 90.3 fL Normal 81.0-99.0 [facility] Comment on above: Performed By: #### C BC #### [facility] [address] [place] [address] Dr. Rommel Ramirez MONO # 0.5 103/ul Normal 0.3-0.8 [facility] Comment on above: Performed By: #### C BC #### [facility] [address] [place] [address] Dr. Rommel Ramirez Monocytes/100 WBC (Bld) 7.2 % Normal 1.7-12.0 [facility] Comment on above: Performed By: #### C BC #### [facility] [address] [place] [address] Dr. Rommel Ramirez NEUT # 3.9 103/ul Normal 1.4-6.5 [facility] Comment on above: Performed By: #### C BC #### [facility] [address] [place] [address] Dr. Rommel Ramirez Neutrophils/100 WBC (Bld) 59.1 % Normal 43.0-75.0 [facility] Comment on above: Performed By: #### C BC #### [facility] [address] [place] [address] Dr. Rommel Ramirez Platelet mean volume (Bld) [Entitic vol] 9.4 fL Critically low 9.5-13.5 [facility] Comment on above: Performed By: #### C BC #### [facility] [address] [place] [address] Dr. Rommel Ramirez PLT 349 103/ul Normal 150-450 [facility] Comment on above: Performed By: #### C BC #### [facility] [address] [place] [address] Dr. Rommel Ramirez RBC 4.44 106/ul Normal 4.20-5.40 [facility] Comment on above: Performed By: #### C BC #### [facility] [address] [place] [address] Dr. Rommel Ramirez WBC 6.7 103/ul Normal 4.0-11.0 [facility] Comment on above: Performed By: #### C BC #### [facility] [address] [place] [address] Dr. Rommel Ramirez FREE T3on 10-09-2022 FREE T3 2.78 pg/mlL Normal 2.18-3.98 [facility] Comment on above: Performed By: #### C MP, FT3, TSH #### [facility] [address] [place] [address] Dr. Rommel Ramirez FREE T4on 10-09-2022 Free T4 [Mass/Vol] 0.86 ng/dL Normal 0.76-1.46 [facility] Comment on above: Performed By: #### F T4 #### [facility] [address] [place] [address] Dr. Rommel Ramirez PROF 14(COMP METB)on 022 Albumin [Mass/Vol] 3.9 g/dL Normal 3.4-5.0 [facility] Comment on above: Performed By: #### C MP, FT3, TSH #### [facility] [address] [place] [address] Dr. Rommel Ramirez Albumin/Globulin [Mass ratio] 1.3 {ratio} Normal [facility] Comment on above: Performed By: #### C MP, FT3, TSH #### [facility] [address] [place] [address] Dr. Rommel Ramirez ALP [Catalytic activity/Vol] 59 U/L Normal 46-116 [facility] Comment on above: Performed By: #### C MP, FT3, TSH #### [facility] [address] [place] [address] Dr. Rommel Ramirez ALT [Catalytic activity/Vol] 24 U/L Normal 14-59 [facility] Comment on above: Performed By: #### C MP, FT3, TSH #### [facility] [address] [place] [address] Dr. Rommel Ramirez Anion gap [Moles/Vol] 17.2 mmol/L Normal [facility] Comment on above: Performed By: #### C MP, FT3, TSH #### [facility] [address] [address] [address] Rommel Ramirez AST [Catalytic activity/Vol] 22 U/L Normal 15-37 [facility] Comment on above: Performed By: #### C MP, FT3, TSH #### [facility] [address] [address] [address] Rommel Ramirez Bilirubin [Mass/Vol] 0.4 mg/dL Normal 0.2-1.0 [facility] Comment on above: Performed By: #### C MP, FT3, TSH #### [facility] [address] [address] [address] Rommel Ramirez Calcium [Mass/Vol] 9.0 mg/dL Normal 8.5-10.1 [facility] Comment on above: Performed By: #### C MP, FT3, TSH #### [facility] [address] [place] [address] Dr. Rommel Ramirez Chloride [Moles/Vol] 106 mmol/L Normal 98-107 [facility] Comment on above: Performed By: #### C MP, FT3, TSH #### [facility] [address] [place] [address] Dr. Rommel Ramirez CO2 [Moles/Vol] 23.4 mmol/L Normal 21.0-32.0 [facility] Comment on above: Performed By: #### C MP, FT3, TSH #### [facility] [address] [place] [address] Dr. Rommel Ramirez Creatinine [Mass/Vol] 0.92 mg/dL Normal 0.55-1.02 [facility] Comment on above: Performed By: #### C MP, FT3, TSH #### [facility] [address] [place] [address] Dr. Rommel Ramirez EGFR-AF HUNGARIAN >60 Normal >=60 [facility] Comment on above: Performed By: #### C MP, FT3, TSH #### [facility] [address] [place] [address] Dr. Rommel Ramirez EGFR-NON AF HUNGARIAN >60 Normal >=60 [facility] Comment on above: Performed By: #### C MP, FT3, TSH #### [facility] [address] [place] [address] Dr. Rommel Ramirez Globulin (S) [Mass/Vol] 3.0 g/dL Normal [facility] Comment on above: Performed By: #### C MP, FT3, TSH #### [facility] [address] [place] [address] Dr. Rommel Ramirez Glucose [Mass/Vol] 115 mg/dL Critically high 74-106 [facility] Comment on above: Performed By: #### C MP, FT3, TSH #### [facility] [address] [place] [address] Dr. Rommel Ramirez Potassium [Moles/Vol] 3.6 mmol/L Normal 3.5-5.1 [facility] Comment on above: Performed By: #### C MP, FT3, TSH #### [facility] [address] [place] [address] Dr. Rommel Ramirez Protein [Mass/Vol] 6.9 g/dL Normal 6.4-8.2 [facility] Comment on above: Performed By: #### C MP, FT3, TSH #### [facility] [address] [place] [address] Dr. Rommel Ramirez Sodium [Moles/Vol] 143 mmol/L Normal 136-145 [facility] Comment on above: Performed By: #### C MP, FT3, TSH #### [facility] [address] [place] [address] Dr. Rommel Ramirez Urea nitrogen [Mass/Vol] 19.0 mg/dL Critically high 7.0-18.0 [facility] Comment on above: Performed By: #### C MP, FT3, TSH #### [facility] [address] [place] [address] Dr. Rommel Ramirez Urea nitrogen/Creatinine [Mass ratio] 20.7 mg/mg Normal [facility] Comment on above: Performed By: #### C MP, FT3, TSH #### [facility] [address] [place] [address] Dr. Rommel Ramirez TSHon 10-09-2022 TSH 2.672 uIU/mL Normal 0.358-3.740 [facility] Comment on above: Performed By: #### C MP, FT3, TSH #### [facility] [address] [address] [address] Rommel Ramirez PAP ACOG PANEL 2: 30 to 65on 08-22-2022 . . Normal [facility] Comment on above: Result Comment: Perf ormed at: WB Performed By: #### [id number] #### [facility] [address] [address] [address] Rommel Ramirez Age Gdln ACOG Testing 30-65 Normal [facility] Comment on above: Performed By: #### [id number] #### [facility] [address] [place] [address] Dr. Rommel Ramirez DIAGNOSIS: Comment Normal [facility] Comment on above: Result Comment: NEGA TIVE FOR INTRAEPITHELIAL LESION OR MALIGNANCY. SHIFT IN NICKOLAS SUGGESTIVE OF BACTERIAL VAGINOSIS. Performed at: WB Performed By: #### [id number] #### [facility] [address] [place] [address] Dr. Rommel Ramirez HPV Aptima Negative Normal Negative [facility] Comment on above: Result Comment: This nucleic acid amplification test detects fourteen high-risk HPV types (16,18,31,33,35,39,45,51,52,56,58,59,66,68) without differentiation. Performed at: =G Performed By: #### [id number] #### [facility] [address] [address] [address] Rommel Ramirez Methodology: Comment Normal [facility] Comment on above: Result Comment: This liquid based ThinPrep(R) pap test was screened with the use of an image guided system. Performed at: WB Performed By: #### [id number] #### [facility] [address] [place] [address] Dr. Rommel Ramirez Note: Comment Normal [facility] Comment on above: Result Comment: The Pap smear is a screening test designed to aid in the detection of premalignant and malignant conditions of the uterine cervix. It is not a diagnostic procedure and should not be used as the sole means of detecting cervical cancer. Both false-positive and false-negative reports do occur. . Performed at: WB Performed By: #### [id number] #### [facility] [address] [address] [address] Rommel Ramirez Performed by: Comment Normal [facility] Comment on above: Result Comment: Fatou Dillon, Blanket Folder (ASCP) Performed at: WB Performed By: #### [id number] #### [facility] [address] [address] [address] Rommel Ramirez Specimen adequacy: Comment Normal [facility] Comment on above: Result Comment: Sati sfactory for evaluation. Performed at: WB Performed By: #### [id number] #### [facility] [address] [place] [address] Dr. Rommel Ramirez Vital Signs Date Time Vital Sign Value Performing Clinician David del castillo 04-04-2024 09:45-0400 Diastolic blood pressure 90 mm[Hg] [facility] 04-04-2024 09:45-0400 Heart rate 94 /min [facility] 04-04-2024 09:45-0400 SaO2% (BldA) [Mass fraction] 99 % [facility] 04-04-2024 09:45-0400 Systolic blood pressure 138 mm[Hg] [facility] Encounters Encounter Date Encounter Type Care Provider Facility Start: 08-11-2024 End: 08-11-2024 ambulatory Grace Momin Facility:[facility] Start: 07-07-2024 End: 07-07-2024 ambulatory Grace Momin Facility:[facility] Start: 06-23-2024 End: 06-23-2024 ambulatory AKILA SHARMA Not Available Start: 06-05-2024 End: 06-05-2024 ambulatory Grace Momin Facility:[facility] Start: 05-05-2024 End: 05-05-2024 ambulatory Grace Momin Facility:[facility] Start: 04-04-2024 End: 04-10-2024 Pre-admission assessment Aubrey Glass [facility] Start: 04-04-2024 End: 04-04-2024 ambulatory [place] Momin [place] [place]: 04-04-2024 End: 04-04-2024 Patient encounter procedure Aubrey Barrazafernando [facility] Start: 04-03-2024 End: 04-03-2024 ambulatory Grace Momin Facility:[facility] Start: 03-27-2024 End: 03-27-2024 ambulatory Grace Momin [place] Start: 03-27-2024 End: 03-27-2024 Patient encounter procedure Grace Momin [facility] Start: 03-25-2024 End: 03-25-2024 ambulatory Grace Momin Facility:[facility] Start: 02-25-2024 End: 02-25-2024 ambulatory Grace Momin Facility:[facility] Start: 01-14-2024 End: 01-14-2024 ambulatory [facility] Start: 01-01-2024 ambulatory Grace Momin Facility: [facility] Start: 10-09-2022 End: 10-10-[address] CHRISTI SRINIVASAN Facility:[facility] Start: 08-15-2022 End: 08-15-[address] MEEK MAHAJAN Facility:[facility] Procedures Date Procedure Procedure Detail Performing Clinician Bilateral tubal ligation Damon Momin Breast surgery (qual ifier value) Grace Momin Comment on above: has 4 breast, 2 evelyn adalberto Dilatation (morpholo gic abnormality) Grace Momin H/O: hysterectomy Grace Nevarez s Comment on above: 2018 Laparoscopy Grace Momin Immunizations Immunization Date Immunization Notes Care Provider Fa cility 08-12-2023 influenza virus vaccine, unspecified formulation Grace Momin [facility] 01-20-2023 zoster vaccine recombinant Grace Momin [facility] 10-04-2022 zoster vaccine recombinant Grace Momin [facility] 09-04-2022 pneumococcal 20-fausto nt conjugate vaccine Grace Momin [facility] 08-28-2022 influenza virus vaccine, unspecified formulation Grace Momin [facility] 07-31-2022 SARS-CoV-2 (COVID-19 ) [id number] Grace Momin [facility] 03-01-2022 SARS-CoV-2 mRNA (fwifihipgae-tccb-juwtd se) vaccine Grace Momin [facility] 10-30-2021 SARS-CoV-2 (COVID-19 ) mRNA BNT-162b2 vax Grace Momin [facility] 08-22-2021 influenza virus vaccine, unspecified formulation Grace Momin [facility] 02-08-2021 SARS-CoV-2 (COVID-19 ) mRNA BNT-162b2 vax Grace Momni [facility] 01-18-2021 SARS-CoV-2 (COVID-19 ) mRNA BNT-162b2 vax Grace Momin [facility] 08-23-2020 influenza virus vaccine, unspecified formulation Grace Momin [facility] 01-10-2020 tetanus toxoid, redu rajan diphtheria toxoid, and acellular pertussis vaccine, adsorbed Grace Momin [facility] 12-05-2019 influenza virus vaccine, unspecified formulation Grace Momin [facility] 08-05-2019 influenza virus vaccine, unspecified formulation Grace Momin [facility] 08-12-2018 influenza virus vaccine, unspecified formulation Grace Momin [facility] 07-30-2018 influenza virus vaccine, unspecified formulation Grace Momin [facility] 07-30-2018 tetanus toxoid, redu rajan diphtheria toxoid, and acellular pertussis vaccine, adsorbed Grace Momin [facility] 08-09-2017 influenza virus vaccine, unspecified formulation Grace Momin [facility] 09-01-2016 influenza virus vaccine, unspecified formulation Grace Momin [facility] 09-28-2015 influenza virus vaccine, unspecified formulation Grace Momin [facility] 07-27-2014 influenza virus vaccine, unspecified formulation Grace Momin [facility] Payers Date Payer Category Payer Medicaid [id number] 1970 Unknown [id number] 2.16.84 [id number] 1970 Unknown [id number] 2.16.84 0.1.258044.3.579.2.593 1970 Unknown [id number] 2.16.84 0.1.434948.3.579.2.1259 1968 Unknown [id number] 2.16.8 40.1.238690.3.579.2.727 1970 Unknown [id number] 2.16.8 40.1.783730.3.579.2.727 1968 Unknown [id number] 2.16.8 40.1.290258.3.579.2.727 1968 Unknown [id number] 2.16.8 40.1.420181.3.579.2.727 1968 Unknown [id number] 2.16.8 40.1.687846.3.579.2.727 1968 Unknown [id number] 2.16.8 40.1.867388.3.579.2.727 1968 Unknown [id number] 2.16.8 40.1.356419.3.579.2.727 1968 Unknown [id number] 2.16.8 40.1.906920.3.579.2.727 1968 Unknown [id number] 2.16.8 40.1.203846.3.579.2.727 1968 Unknown [id number] 2.16.8 40.1.617647.3.579.2.727 1959 Unknown [id number] Social History Date Type Detail Facility Start: 02-25-2024 End: 04-04-2024 Tobacco smoking status Light tobacco smoker (finding) [facility] Sex Assigned At Female [facility] Functional Status Date Assessment Result Facility 04-04-2024 Functional Status N/A [facility] Clinical Note 07-07-2024 Note Date & Type Note Facility 07-07-2024 Note Patient Education Nutrition BMI for Adults What is BMI? Body mass index (BMI) is a number that is calculated from a person's weight and height. BMI can help estimate how much of a person's weight is composed of fat. BMI does not measure body fat directly. Rather, it is an alternative to procedures that directly measure body fat, which can be difficult and expensive. BMI can help identify people who may be at higher risk for certain medical problems. What are BMI measurements used for? BMI is used as a screening tool to identify possible weight problems. It helps determine whether a person is obese, overweight, a healthy weight, or underweight. BMI is useful for: ? Identifying a weight problem that may be related to a medical condition or may increase the risk for medical problems. ? Promoting changes, such as changes in diet and exercise, to help reach a healthy weight. BMI screening can be repeated to see if these changes are working. How is BMI calculated? BMI involves measuring your weight in relation to your height. Both height and weight are measured, and the BMI is calculated from those numbers. This can be done either in [place] or metric measurements. Note that charts and online BMI calculators are available to help you find your BMI quickly and easily without having to do these calculations yourself. To calculate your BMI in [place] measurements: 1. Measure your weight in pounds (lb). 2. Multiply the number of pounds by 703. ? For example, for a person who weighs 180 lb, multiply that number by 703, which equals 126,540. 3. Measure your height in inches. Then multiply that number by itself to get a measurement called inches squared. ? For example, for a person who is 70 inches tall, the inches squared measurement is 70 inches x 70 inches, which equals 4,900 inches squared. 4. Divide the total from step 2 (number of lb x 703) by the total from step 3 (inches squared): 126,540 ? 4,900 = 25.8. This is your BMI. To calculate your BMI in metric measurements: 1. Measure your weight in kilograms (kg). 2. Measure your height in meters (m). Then multiply that number by itself to get a measurement called meters squared. ? For example, for a person who is 1.75 m tall, the meters squared measurement is 1.75 m x 1.75 m, which is equal to 3.1 meters squared. 3. Divide the number of kilograms (your weight) by the meters squared number. In this example: 70 ? 3.1 = 22.6. This is your BMI. What do the results mean? BMI charts are used to identify whether you are underweight, normal weight, overweight, or obese. The following guidelines will be used: ? Underweight: BMI less than 18.5. ? Normal weight: BMI between 18.5 and 24.9. ? Overweight: BMI between 25 and 29.9. ? Obese: BMI of 30 or above. Keep these notes in mind: ? Weight includes both fat and muscle, so someone with a muscular build, such as an athlete, may have a BMI that is higher than 24.9. In cases like these, BMI is not an accurate measure of body fat. ? To determine if excess body fat is the cause of a BMI of 25 or higher, further assessments may need to be done by a health care provider. ? BMI is usually interpreted in the same way for men and women. Where to find more information For more information about BMI, including tools to quickly calculate your BMI, go to these websites: ? Centers for Disease Control and Prevention: www.cdc.gov ? [place] [employer] Association: www.heart.org ? National Heart, Lung, and Blood [place]: www.nhlbi.nih.gov Summary ? Body mass index (BMI) is a number that is calculated from a person's weight and height. ? BMI may help estimate how much of a person's weight is composed of fat. BMI can help identify those who may be at higher risk for certain medical problems. ? BMI can be measured using [place] measurements or metric measurements. ? BMI charts are used to identify whether you are underweight, normal weight, overweight, or obese. This information is not intended to replace advice given to you by your health care provider. Make sure you discuss any questions you have with your health care provider. Document Revised: 07/21/2020 Document Reviewed: 05/28/2020 [employer] Patient Education ? 2022 [employer]. [facility] Clinical Note 06-05-2024 Note Date & Type Note Facility 06-05-2024 Note Patient Education Cardiovascular Hypertension, Adult High blood pressure (hypertension) is when the force of blood pumping through the arteries is too strong. The arteries are the blood vessels that carry blood from the heart throughout the body. Hypertension forces the heart to work harder to pump blood and may cause arteries to become narrow or stiff. Untreated or uncontrolled hypertension can lead to a heart attack, heart failure, a stroke, kidney disease, and other problems. A blood pressure reading consists of a higher number over a lower number. Ideally, your blood pressure should be below 120/80. The first ( top ) number is called the systolic pressure. It is a measure of the pressure in your arteries as your heart beats. The second ( bottom ) number is called the diastolic pressure. It is a measure of the pressure in your arteries as the heart relaxes. What are the causes? The exact cause of this condition is not known. There are some conditions that result in high blood pressure. What increases the risk? Certain factors may make you more likely to develop high blood pressure. Some of these risk factors are under your control, including: ? Smoking. ? Not getting enough exercise or physical activity. ? Being overweight. ? Having too much fat, sugar, calories, or salt (sodium) in your diet. ? Drinking too much alcohol. Other risk factors include: ? Having a personal history of heart disease, diabetes, high cholesterol, or kidney disease. ? Stress. ? Having a family history of high blood pressure and high cholesterol. ? Having obstructive sleep apnea. ? Age. The risk increases with age. What are the signs or symptoms? High blood pressure may not cause symptoms. Very high blood pressure (hypertensive crisis) may cause: ? Headache. ? Fast or irregular heartbeats (palpitations). ? Shortness of breath. ? Nosebleed. ? Nausea and vomiting. ? Vision changes. ? Severe chest pain, dizziness, and seizures. How is this diagnosed? This condition is diagnosed by measuring your blood pressure while you are seated, with your arm resting on a flat surface, your legs uncrossed, and your feet flat on the floor. The cuff of the blood pressure monitor will be placed directly against the skin of your upper arm at the level of your heart. Blood pressure should be measured at least twice using the same arm. Certain conditions can cause a difference in blood pressure between your right and left arms. If you have a high blood pressure reading during one visit or you have normal blood pressure with other risk factors, you may be asked to: ? Return on a different day to have your blood pressure checked again. ? Monitor your blood pressure at home for 1 week or longer. If you are diagnosed with hypertension, you may have other blood or imaging tests to help your health care provider understand your overall risk for other conditions. How is this treated? This condition is treated by making healthy lifestyle changes, such as eating healthy foods, exercising more, and reducing your alcohol intake. You may be referred for counseling on a healthy diet and physical activity. Your health care provider may prescribe medicine if lifestyle changes are not enough to get your blood pressure under control and if: ? Your systolic blood pressure is above 130. ? Your diastolic blood pressure is above 80. Your personal target blood pressure may vary depending on your medical conditions, your age, and other factors. Follow these instructions at home: Eating and drinking ? Eat a diet that is high in fiber and potassium, and low in sodium, added sugar, and fat. An example of this eating plan is called the DASH diet. DASH stands for Dietary Approaches to Stop Hypertension. To eat this way: ? Eat plenty of fresh fruits and vegetables. Try to fill one half of your plate at each meal with fruits and vegetables. ? Eat whole grains, such as whole-wheat pasta, brown rice, or whole-grain bread. Fill about one fourth of your plate with whole grains. ? Eat or drink low-fat dairy products, such as skim milk or low-fat yogurt. ? Avoid fatty cuts of meat, processed or cured meats, and poultry with skin. Fill about one fourth of your plate with lean proteins, such as fish, chicken without skin, beans, eggs, or tofu. ? Avoid pre-made and processed foods. These tend to be higher in sodium, added sugar, and fat. ? Reduce your daily sodium intake. Many people with hypertension should eat less than 1,500 mg of sodium a day. ? Do not drink alcohol if: ? Your health care provider tells you not to drink. ? You are , may be , or are planning to become . ? If you drink alcohol: ? Limit how much you have to: ? 0?1 drink a day for women. ? 0?2 drinks a day for men. ? Know how much alcohol is in your drink. In the [place] one drink equals one 12 oz bottle of beer (355 mL), one 5 oz glass of wine (148 mL), (more content not included)... [facility] Evaluation + Plan note Note Date & Type Note Facility Evaluation + Plan note No data available for this section [facility] Evaluation + Plan note LaboratoryRadiology Note Date & Type Note Facility Evaluation + Plan note Future Appointments Appointment Date:04/09/2024 10:15:00 AM Scheduled Provider: [facility] Type:CV Stress (FT) Appointment Date:05/09/2024 09:00:00 AM Scheduled Provider:Aubrey Glass MD [facility] [place] Appointment Type:Cardiology Follow Up (FT) Appointment Date:06/05/2024 09:30:00 AM Scheduled Provider:Grace Momin MD Location:[facility] Appointment Type:FM Open Future Scheduled TestsCBC w/ Auto Diff 04/03/24Comprehensive Metabolic Panel 04/03/24Lipid Panel 04/03/24ECG Stress Exercise 04/09/24 [facility] Evaluation + Plan note Laboratory Note Date & Type Note Facility Evaluation + Plan note Future Appointments Appointment Date:05/09/2024 09:00:00 AM Scheduled Provider:Aubrey Glass MD [facility] Appointment Type:Cardiology Follow Up (FT) Appointment Date:06/05/2024 09:30:00 AM Scheduled Provider:Grace Momin MD Location:[facility] Appointment Type:FM Open Future Scheduled TestsCBC w/ Auto Diff 04/03/24Comprehensive Metabolic Panel 04/03/24Lipid Panel 04/03/24 [facility] Hospital Discharge instructions Note Date & Type Note Facility Hospital Discharge instructions No data available for this section [facility] Progress note Note Date & Type Note Facility Progress note No data available for this section [facility] Summary Purpose Family History No Family History Records Found No data available for this section No data available for this section No data available for this section No Family History Records FoundNo Family History Records Found Advance Directives No Advanced Directives Records FoundNo Advanced Directives Records FoundNo Advanced Directives Records Found Additional Source Comments INFORMATION SOURCE (unrecogn ized section and content) DATE CREATED AUTHOR 10/14/2022 [facility] DATE CREATED AUTHOR AUTHOR'S ORGANIZ ATION 06/25/2024 [facility] EPIC DATE CREATED AUTHOR AUTHOR'S ORGANIZ ATION 08/13/2024 Estrella Ranjith [facility] Patient Care team informatio n (unrecognized section and content) Personnel Name: Grace Momin MD Address: Address: [address] [place] [address] Personnel Name: Grace Momin MD Address: Address: [address] [place] [address] Personnel Name: Grace Momin MD Address: Address: [address] [place] [address] FOR RECORDS PERTAINING TO PATIENTS WHO ARE OR HAVE BEEN ENROLLED IN A CHEMICAL DEPENDENCY/SUBSTANCEABUSE PROGRAM, SOME INFORMATION MAY BE OMITTED. This clinical summary was aggregated from multiple sources. Caution should be exercised in using it in the provision of clinical care. This summary normalizes information from multiple sources, and as a consequence, information in this document may materially change the coding, format and clinical context of patient data. In addition, data may be omitted in some cases. CLINICAL DECISIONS SHOULD BE BASED ON THE PRIMARY CLINICAL RECORDS. [facility]. provides no warranty or guarantee of the accuracy or completeness of information in this document.
[2024-09-02 08:12] LABS: Age Gdln ACOG Testing Note (.); HPV Aptima Negative (Negative); IGP, Aptima HPV, rfx 16/18,45 Note (.)
== END 2024-08-26 20:29 | disposition home or self-care (01) ==
LOC: LAB 20:28
PROVIDERS: Visit Provider Obstetrics & Gynecology
DX: Z01.419 Encounter for gynecological examination (general) (routine) without abnormal findings (principal)
CPT/HCPCS: 88175

== ENCOUNTER 2024-09-25 16:31 | Outpatient (OUT) | payer MEDICAID, SELFPAY ==
--- NOTE | 2024-09-25 | MM_ITS ---
Patient Name: MESFIN WILLIAMSON MR#: [id number] : 1970 Exam Date: 09/25/2024 Ordering Doctor: DR Garth Mcrae . RADIOLOGY REPORT PROCEDURE: MM TOMOSYNTHESIS SCREENING BI COMPARISON: MM TOMOSYNTHESIS SCREENING BI, 09/12/2023. MG MAMM CHARLES DIAG W CAD DIG, 02/22/2016. MG MAMM CHARLES SCRN W CAD DIG, 09/02/2013. INDICATIONS: Screening for malignant neoplasm Calculator Name [facility] Breast Cancer Risk Assessment Tool 5 Year Breast Cancer Risk 0.80% Lifetime Breast Cancer Risk 5.30% Personal Breast Cancer No Personal Ovarian Cancer No Treatments None Family Cancers Father with lung cancer at age 65. LOCATION: [facility] BREAST COMPOSITION: The breasts are extremely dense, which lowers the sensitivity of mammography. FINDINGS: DIAGNOSTIC CATEGORY 2--BENIGN FINDING: RIGHT BREAST: No significant suspicious finding. Stable, chronic irregular fibroglandular tissue posterior upper-outer quadrant. No significant change has occurred. LEFT BREAST: No significant suspicious finding. Stable, chronic irregular fibroglandular tissue posterior upper-outer quadrant. No significant change has occurred. RECOMMENDATIONS: ROUTINE MAMMOGRAM AND CLINICAL EVALUATION IN 12 MONTHS. PLEASE NOTE: A NORMAL MAMMOGRAM DOES NOT EXCLUDE THE POSSIBILITY OF BREAST CANCER. A CLINICALLY SUSPICIOUS PALPABLE LUMP SHOULD BE BIOPSIED. Dictated by: Yang Tobar M.D. on 09/26/2024 at 08:40 Approved by: Yang Tobar M.D. on 09/26/2024 at 09:06
--- OUTSIDE RECORDS SUMMARY | 2024-09-25 16:44 | XMS_ITS | CCD ---
Author Organization [facility] ion [facility] Care Team Providers Care Mushroom Cultivator Name Role Phone DR CHRISTI SRINIVASAN Attending Unavailable ZARINA, DR CHRISTI Garcia Consulting Unavailable ZARINA, DR CHRISTI Garcia Primary Care Unavailable ZARINA, DR CHRISTI Garcia Admitting Unavailable CLEMENTINA, DR EDEN Consulting Unavailable CLEMENTINA, DR EDEN Admitting Unavailable CLEMENTINA, DR EDEN Attending Unavailable ZARINA, DR CHRISTI Garcia Primary Care Unavailable Grace Momin. Primary Care Physician Grace Momin Attending Unavailable Grace Momin Attending Unavailable Grace Momin Attending Unavailable Grace Momin Attending Unavailable Grace Momin Attending Unavailable Grace Momin Attending Unavailable Grace Momin Attending Unavailable Grace Momin Attending Unavailable Grace Momin Referring Unavailable Aubrey Glass Attending Unavailable Grace Momin Referring Unavailable Grace Momin Admitting Unavailable Grace Momin Attending Unavailable AKILA SHARMA Attending Unavailable GRACE MOMIN Referring Unavailable MEEK MCRAE Attending Unavailable Grace Momin MD Primary Care Provider [phone] Allergies Allergy Classification Reported Allergen(s) Allergy Type Date of Onset Reaction(s) Facility Aspirin (1 source) Aspirin; Translations: [aspirin] Drug Allergy Unknown (qualifier value) [facility] (2 sources) Aspirin; Translations: [aspirin] Drug Allergy 3 [facility] (1 source) Codeine Drug Allergy [facility] (1 source) metroNIDAZOLE Drug Allergy [facility] (2 sources) Aspirin; Translations: [aspirin] Drug Allergy Unknown (qualifier value) [facility] (4 sources) Aluminum aspirin Drug Allergy 7 Hives, Other [facility] Medications Current Medications Medication Drug Class(es) Dates Sig (Normalized) Sig (Original) amLODIPine 5 mg oral tablet (5 sources) Dihydropyridine Calcium Channel Ann Start: 02-25-20 Norvasc 5 MG tablet Take 5 mg by mouth 02/25/2024 Active Ascorbic Acid (2 sources) Vitamin C Start: 04-04-20 Vitamin C Refills(s) 0 Start Date: 04/04/24 Status: Ordered Calcium (4 sources) Phosphate Binder, Calcium Start: 10-16-20 End: 10-15-20 take 1 tablet by mouth in the morning calcium 200 MG tablet Indications: Osteopenia, unspecified location Take 1 tablet (200 mg) by mouth in the morning. 90 tablet 3 10/16/2023 10/15/2024 Active calcium citrate 950 mg oral tablet (4 sources) Start: 11-11-20 take 1 tablet by mouth in the morning calcium citrate (Calcitrate) 950 (200 Ca) MG tablet Take 950 mg by mouth in the morning. 11/11/2023 Active celecoxib 200 mg oral capsule (4 sources) Nonsteroidal Anti-inflammatory Drug celecoxib (CeleBREX) 200 MG capsule every 12 (twelve) hours Active estrogens, conjugated (jail) 0.625 mg/ml vaginal cream (3 sources) Estrogen Start: 08-26-20 End: 09-25-20 Estrogens Conjugated (Premarin) 0.625 MG/GM cream Indications: Vaginal dryness, menopausal Insert 0.5 applicators into the vagina at bedtime 1/2 applicator at bedtime for one month and then 2 times a week after 30 g 3 08/26/2024 09/25/2024 Active hydroCHLOROthiazide 25 mg oral tablet (7 sources) Thiazide Diuretic Start: 01-14-20 hydroCHLOROthiazide (HYDRODiuril) 25 MG tablet Take 25 mg by mouth 01/14/2024 Active losartan potassium 100 mg oral tablet (7 sources) Angiotensin 2 Receptor Ann Start: 01-14-20 losartan (Cozaar) 100 MG tablet Take 100 mg by mouth 01/14/2024 Active 24 hr metoprolol succinate 25 mg extended release oral tablet (4 sources) beta-Adrenergic Ann Start: 06-05-20 take 1 tablet by mouth every twenty-four hours metoprolol succinate XL (Toprol-XL) 25 MG 24 hr tablet Take 25 mg by mouth 06/05/2024 Active potassium chloride 10 meq extended release oral capsule (6 sources) Start: 04-04-20 potassium chloride ER (Micro-K) 10 MEQ ER capsule Refills(s) 0 04/04/2024 Active rimegepant 75 mg disintegrating oral tablet (7 sources) Start: 02-25-20 Rimegepant Sulfate (Nurtec) 75 MG tablet dispersible Take 75 mg by mouth 02/25/2024 Active Start: 02-25-2024 take 1 tablet by mouth once Nu rtec ODT 75 mg oral tablet, disintegrating 75 mg = 1 tab(s), Oral, Once, # 14 tab(s), Refills(s) 0, Pharmacy: [facility]/pharmacy #[id number], 167.1, cm, 02/25/24 11:22:00 EDT, Height/Length Dosing, 55.7, kg, 02/25/24 11:22:00 EDT, Weight Dosing Start Date: 02/25/24 Status: Ordered Completed/Discontinued Medications Medication Drug Class(es) Dates Sig (Normalized) Sig (Original) cholecalciferol 0.025 mg oral tablet (3 sources) Vitamin D Start: 10-16-2023 End: 10-15-2024 take 1 tablet by mouth in the morning cholecalciferol (Vitamin D-3) 25 MCG (1000 UT) tablet Indications: Osteopenia, unspecified location Take 1 tablet (25 mcg) by mouth in the morning. 90 tablet 3 10/16/2023 08/26/2024 Discontinued (Other) 24 hr venlafaxine 37.5 mg extended release oral capsule (3 sources) Serotonin and Norepinephrine Reuptake Inhibitor End: 08-26-2024 venlafaxine XR (Effexor XR) 37.5 MG 24 hr capsule 1 (one) time each day at the same time 08/26/2024 Discontinued (Other) Problems Problem Classification Problem Date Documented Da [...] Other fatigue; Translations: [Fatigue] Onset: 10-09-2022 Episodic Menopausal disorders (2 sources) Vaginal dryness; Translations: [Menopausal and female climacteric states] 08-26-2024 Chronic Mood disorders (3 sources) Depressive disorder 03-28-2023 Chronic Osteoarthritis (3 sources) Osteoarthritis 02-25-2024 Chronic Other nervous system disorders (3 sources) Carpal tunnel syndrome 03-28-2023 Chronic Other nutritional; endocrine; and metabolic disorders (1 source) Abnormal weight loss; Translations: [ABNORMAL WEIGHT LOSS] Onset: 10-14-2022 Episodic Other screening for suspected conditions (not mental disorders or infectious disease) (7 sources) Encounter for screening for malignant neoplasm of cervix; Translations: [Abnormal results of cardiovascular function studies] Onset: 08-15-2022 Episodic Peripheral and visceral atherosclerosis (3 sources) Peripheral vascular disease 03-28-2023 Chronic Residual codes; unclassified (2 sources) Postmenopausal state; Translations: [Asymptomatic menopausal state] 08-26-2024 Episodic Varicose veins of lower extremity (3 sources) Varicose veins of lower extremity 03-28-2023 Episodic Results Test Name Value Interpretation Reference Range Facility IGP,APTIMA HPV,AGE GDLNon AGE GDLN ACOG TESTING Note . [facility] Comment on above: TESTS RESULT FLAG UN ITS REF RANGE LAB Clinician Provided Cytology Information Source.............Vagina No. of containers..01 ThinPrep Vial Age Algo ACOG Maricruz... 28 FLAG LEGEND: L-Low Normal,H-High Normal,LL-Alert Low,HH-Alert High <-Panic Low,>-Panic High,A-Abnormal,AA-Critical Abnormal Performed at: 01 =[address] [address] Tosha Malcolm MD, HPV APTIMA Negative Negative [facility] Comment on above: This nucleic acid am plification test detects fourteen high- risk HPV types (16,18,31,33,35,39,45,51,52,56,58,59,66,68) without differentiation. Performed at: =[address] [id number] Ecological Modeler: Tosha Malcolm MD, Phone: [phone] Performed at: [address] [id number] Ecological Modeler: Tosha Malcolm MD, Phone: [phone] IGP, APTIMA HPV, RFX 16/18,45 Note . [facility] Comment on above: TESTS RESULT FLAG UN ITS REF RANGE LAB DIAGNOSIS: 02 NEGATIVE FOR INTRAEPITHELIAL LESION OR MALIGNANCY. Specimen adequacy: 02 Satisfactory for evaluation. Performed by: 02 Aparna Busby, Tractor Crane Engineer (ASCP) . 02 Note: Note 02 The Pap smear is a screening test designed to aid in the detection of premalignant and malignant conditions of the uterine cervix. It is not a diagnostic procedure and should not be used as the sole means of detecting cervical cancer. Both false-positive and false-negative reports do occur. Test Methodology: Note 02 This liquid based ThinPrep(R) pap test was screened with the use of an image guided system. HPV Genotype Reflex Note 02 Criteria not met, HPV Genotype not performed. FLAG LEGEND: L-Low Normal,H-High Normal,LL-Alert Low,HH-Alert High <-Panic Low,>-Panic High,A-Abnormal,AA-Critical Abnormal Performed at: [address] [address] Tosha Malcolm MD, SPATULA-ALONE [facility] Family Medicine Office/Clini c Noteon 07-07-2024 Family [...] Daily, # 90 tab(s), Refills(s) 0, [id number], 167, cm, 07/07/24 16:12:00 EDT, Height/Length [...] not intractable, without status migrainosus) Will do [facility] samples as able to. Patient responds very well to this. Ordered: escitalopram, 10 mg = 1 tab(s), Oral, Daily, # 90 tab(s), Refills(s) 0, Pharmacy: [id number], 167, cm, 07/07/24 16:12:00 EDT, Height/Length [...] Daily, # 90 tab(s), Refills(s) 0, Pharmacy: [id number], 167, cm, 07/07/24 16:12:00 EDT, Height/Length [...] Daily, # 90 tab(s), Refills(s) 0, [id number], 167, cm, 07/07/24 16:12:00 EDT, Height/Length [...] Daily, # 90 tab(s), Refills(s) 0, [facility]: [id number], 167, cm, 07/07/24 16:12:00 EDT, Height/Length Dosing, 51.6, kg, 07/07/24 16:12:00 EDT, Weight Dosing Orders: metoprolol, 25 mg = 1 tab(s), Oral, Daily, # 30 tab(s), Refills(s) 0, Pharmacy: [id number], 167, cm, 06/05/24 9:44:00 EDT, Height/Length Dosing, 52.7, kg, 06/05/24 9:44:00 EDT, Weight Dosing metoprolol, 25 mg = 1 tab(s), Oral, Daily, # 90 tab(s), Refills(s) 1, [id number], 167, cm, 06/05/24 9:44:00 EDT, Height/Length Dosing, 52.7, kg, 06/05/24 9:44:00 EDT, Weight Dosing Follow-up No qualifying data available Patient Education BMI for Adults Problem List/Past Medical History Ongoing Anxiety (more content not included)... Normal [facility] Comment on above: Result Comment: Elec [...] PM EDT With: Grace Momin MD Where: [place] [id number]- Medications What How Much When Why Instructions [...] you for choosing us for your care. Normal [facility] Family Medicine Office/Clini c Noteon 06-05-2024 Family [...] Daily, # 30 tab(s), Refills(s) 0, Pharmacy: [facility]/pharmacy #[id number], 167, cm, 06/05/24 9:44:00 EDT, Height/Length Dosing, 52.7, kg, 06/05/24 9:44:00 EDT, Weight Dosing rimegepant, 75 mg = 1 tab(s), Oral, Once, # 14 tab(s), Refills(s) 0, Pharmacy: [facility]/pharmacy #[id number], 167, cm, 06/05/24 9:44:00 EDT, Height/Length [...] inactivated 08/28 (more content not included)... Normal [facility] Comment on above: Result Comment: Elec tronically Signed By: Davi ROBLES, Grace Loomis.br\Date and Time Signed: 06/05/24 09:54 EDT Physician Referralon 024 Physician Referral [id number]#1.00 TIFF Normal [facility] Family Medicine Office/Clini c Noteon 05-05-2024 Family [...] day(s), # 21 tab(s), Refills(s) 0, [facility]: [id number], 167, cm, 05/05/24 18:15:00 EDT, Height/Length Dosing, 53.6, kg, 05/05/24 18:15:00 EDT, Weight Dosing Body Mass Index (BMI) documented 3008F Current tobacco smoker 1034F Depression Screening Negative 3352F [facility] External Ambulatory Referral Influenza immunization administered or [...] day(s), # 21 tab(s), Refills(s) 0, Pharmacy: [id number], 167, cm, 05/05/24 18:15:00 EDT, Height/Length Dosing, 53.6, kg, 05/05/24 18:15:00 EDT, Weight Dosing Body Mass Index (BMI) documented 3008F Current tobacco smoker 1034F Depression Screening Negative 3352F [facility] External Ambulatory Referral Influenza immunization administered or [...] day(s), # 21 tab(s), Refills(s) 0, Pharmacy: [facility]/pharmacy #[id number], 167, cm, 05/05/24 18:15:00 EDT, Height/Length Dosing, 53.6, kg, 05/05/24 18:15:00 EDT, Weight Dosing Body Mass Index (BMI) documented 3008F Current tobacco smoker 1034F Depression Screening Negative 3352F [facility] External Ambulatory Referral Influenza immunization administered or [...] day(s), # 21 tab(s), Refills(s) 0, Pharmacy: [facility]/pharmacy #[id number], 167, cm, 05/05/24 18:15:00 EDT, Height/Length [...] day(s), # 21 tab(s), Refills(s) 0, Pharmacy: [facility]/pharmacy #[id number], 167, cm, 05/05/24 18:15:00 EDT, Height/Length [...] No qualifying (more content not included)... Normal [facility] Comment on above: Result Comment: Elec [...] oz glass (more content not included)... Normal [facility] ECG 12-Leadon 04-04-2024 ECG 12-Lead [id number]#1.00T IFF Normal [facility] Heart and Vascular Office/Cl inic Noteon 04-04-2024 [...] influenza vir (more content not included)... Normal [facility] Comment on above: Result Comment: Elec tronically Signed By: Quan ROBLES, Aubrey Amor\.br\Date and Time Signed: 04/04/24 11:14 EDT Physician Orderon 04-04-2024 Physician Order [id number]#1.00T IFF Normal [facility] Ambulatory Visit Summaryon 0 04-03-2024 Ambulatory Visit [...] AM EDT With: Grace Momin MD Where: [facility] Medicine [place] Invalid Interpretation Code Smoker [facility] Medicine Office/Clini c Noteon 04-03-2024 Family Medicine [...] Daily, # 90 tab(s), Refills(s) 0, Pharmacy: [facility]/pharmacy #[id number], 167, cm, 04/03/24 8:54:00 EDT, Height/Length Dosing, 53.5, kg, 04/03/24 8:54:00 EDT, Weight Dosing losartan, 100 mg = 1 tab(s), Oral, Daily, # 90 tab(s), Refills(s) 0, Pharmacy: [facility]/pharmacy #[id number], 167, cm, 04/03/24 8:54:00 EDT, Height/Length Dosing, 53.5, kg, 04/03/24 8:54:00 EDT, Weight Dosing CBC w/ Auto Diff Comprehensive Metabolic Panel [facility] Internal Ambulatory Referral Lipid Panel 2. Migraine (G43.909: Migraine, unspecified, not intractable, without status migrainosus) - Needs samples - Out of [facility] - Will try ubrelvy Ordered: hydrochlorothiazide, 25 mg = 1 tab(s), Oral, Daily, # 90 tab(s), Refills(s) 0, Pharmacy: [facility]/pharmacy #[id number], 167, cm, 04/03/24 8:54:00 EDT, Height/Length Dosing, 53.5, kg, 04/03/24 8:54:00 EDT, Weight Dosing losartan, 100 mg = 1 tab(s), Oral, Daily, # 90 tab(s), Refills(s) 0, Pharmacy: [id number], 167, cm, 04/03/24 8:54:00 EDT, Height/Length Dosing, 53.5, kg, 04/03/24 8:54:00 EDT, Weight Dosing CBC w/ Auto Diff Comprehensive Metabolic Panel Lipid Panel 3. PVD (peripheral vascular disease) (I73.9: Peripheral vascular disease, unspecified) - Pt is unsure where this diagnosis came from. - Will monitor Ordered: hydrochlorothiazide, 25 mg = 1 tab(s), Oral, Daily, # 90 tab(s), Refills(s) 0, Pharmacy: [facility]/pharmacy #[id number], 167, cm, 04/03/24 8:54:00 EDT, Height/Length Dosing, 53.5, kg, 04/03/24 8:54:00 EDT, Weight Dosing losartan, 100 mg = 1 tab(s), Oral, Daily, # 90 tab(s), Refills(s) 0, Pharmacy: [facility]/pharmacy #[id number], 167, cm, 04/03/24 8:54:00 EDT, Height/Length Dosing, 53.5, kg, 04/03/24 8:54:00 EDT, Weight Dosing CBC w/ Auto Diff Comprehensive Metabolic Panel [facility] Internal Ambulatory Referral Lipid Panel NM Myocardial Spect Rest/Stress 1 Day 4. Decreased stamina (R53.83: Other fatigue) - Concerned there is underlying CAD - Sending to Cardio since she has an elevated TID Ordered: CBC w/ Auto Diff Comprehensive Metabolic Panel [facility] Internal Ambulatory Referral Lipid Panel NM Myocardial Spect Rest/Stress 1 Day 5. Smoker (F17.200: Nicotine dependence, unspecified, uncomplicated) - Discussed smoking cessation. - Pt is cutting down. Ordered: hydrochlorothiazide, 25 mg = 1 tab(s), Oral, Daily, # 90 tab(s), Refills(s) 0, Pharmacy: [facility]/pharmacy #[id number], 167, cm, 04/03/24 8:54:00 EDT, Height/Length Dosing, 53.5, kg, 04/03/24 8:54:00 EDT, Weight Dosing losartan, 100 mg = 1 tab(s), Oral, Daily, # 90 tab(s), Refills(s) 0, Pharmacy: [facility]/pharmacy #[id number], 167, cm, 04/03/24 8:54:00 EDT, Height/Length [...] surgery, Dil (more content not included)... Normal [facility] Comment on above: Result Comment: Elec [...] Tab, 100 mg= 1 tab(s), Oral, Daily [facility] ODT 75 mg oral tablet, disintegrating, 75 mg= 1 tab(s), Oral, Once, Unable to obtain: getting samples Allergies aspirin (Unknown) Immunizations Vaccine Date Status influenza virus vaccine, inactivated 08/12/2023 Recorded zoster vaccine, inactivated 01/20/2023 Recorded zoster vaccine, inactivated 10/04/2022 Recorded pneumococcal 20-valent conjugate vaccine 09/04/2022 Recorded influenza virus vaccine, inactivated 08/28/2022 Recorded SARS-CoV-2 (COVID-19) [id number] 07/31/2022 Recorded SARSCoV2 mRNA(eqfxexbuv-plwq-gxh ros) vac 03/01/2022 Recorded SARS-CoV-2 (COVID-19) mRNA [...] influenza virus vaccine, inactivated 07/27/2014 Recorded Normal [facility] Physician Referralon 024 Physician Referral [id number]#1.00 TIFF Normal [facility] NM Myocardial Spect Rest/Str ess 1 Dayon [...] (Electronic Signature): 04/02/2024 9:27 pm Signed by: Qunetin Roth MD Transcribed by: JOEY Technologist: MICHELLE Technical Comments Rest Dose (mCi Tc99m Cardiolite): 9.2 Stress Dose (mCi Tc99M Cardiolite): 29.7 Normal [facility] Consent for Treatmenton 03-12 Consent for Treatment [id number] IFF Normal [facility] Insurance Correspondenceon 0 03-06-2024 Insurance Correspondence [id number]#1.00 TIFF Normal [facility] Family Medicine Office/Clini c Noteon 02-29-2024 Family [...] site) The patient is advised to take wadp-zpn-qtxxseu medication. Should there be no improvement, further [...] with voice recognition artificial intelligence software, specifically [employer], [employer] and or [employer]. Substitutions may have occurred due to the inherent limitations of voice recognition and artificial intelligence software. ATTESTATION: Documentation services were performed after patient or guardian consented to allow [facility] to record this visit. JERAMY career placement specialist and provider reviewed before signing. JERAMY: [...] of hystere (more content not included)... Normal [facility] Comment on above: Result Comment: Elec tronically Signed By: Ross Grace ROBLES\.br\Date and Time Signed: 02/29/24 09:45 EDT\.br\Electronically Co-Signed By: Ezra Negron\.br\Date and Time Co-Signed: 02/25/24 13:40 EDT Family Medicine Office/Clini c Noteon 01-15-2024 Family Medicine Office/Clinic Note HPI Staff Camryn is a 53 year old female presenting to [facility] care Establish Care: History:anxiety, carpal tunnel, depression, [...] pressure, which remains elevated. She is taking zsga-ein-maqhjdj calcium supplements for her osteoporosis condition. She [...] with voice recognition artificial intelligence software, specifically [employer], [employer] and or [employer]. Substitutions may have occurred due to the inherent limitations of voice recognition and artificial intelligence software. ATTESTATION: Documentation services were performed after patient or guardian consented to allow [facility] to record this visit. JERAMY career placement specialist and provider reviewed before signing. JERAMY: Dhevie Rigor. Follow-up No qualifying data available The [...] (Unknown) S (more content not included)... Normal [facility] Comment on above: Result Comment: Elec tronically Signed By: Grace Momin MD\.br\Date and Time Signed: 01/15/24 18:21 EST\.br\Electronically Co-Signed By: Ezra Negron\.br\Date and Time Co-Signed: 01/14/24 11:54 EST CBC AUTO DIFFon 10-09-2022 BASO # 0.0 103/ul Normal 0.0-0.1 [facility] Comment on above: Performed By: #### C BC #### [facility] [address] [place] [address] Dr. Rommel Ramirez Basophils/100 WBC (Bld) 0.3 % Normal 0.2-2.0 [facility] Comment on above: Performed By: #### C BC #### [facility] [address] [place] [address] Dr. Rommel Ramirez EO # 0.1 103/ul Normal 0.0-0.7 [facility] Comment on above: Performed By: #### C BC #### [facility] [address] [place] [address] [address] Rommel Ramirez Eosinophils/100 WBC (Bld) 0.9 % Normal 0.9-7.0 [facility] Comment on above: Performed By: #### C BC #### [facility] [address] [place] [address] Dr. Rommel Ramirez Erythrocyte distribution width (RBC) [Ratio] 12.1 % Normal 11.0-15.0 [facility] Comment on above: Performed By: #### C BC #### [facility] [address] [place] [address] Dr. Rommel Ramirez Hematocrit (Bld) [Volume fraction] 40.1 % Normal 36.0-48.0 [facility] Comment on above: Performed By: #### C BC #### [facility] [address] [place] [address] Dr. Rommel Ramirez Hemoglobin (Bld) [Mass/Vol] 13.9 g/dL Normal 12.0-16.0 [facility] Comment on above: Performed By: #### C BC #### [facility] [address] [place] [address] Dr. Rommel Ramirez IG # 0.01 10e3/ul Normal 0.00-0.03 [facility] Comment on above: Performed By: #### C BC #### [facility] [address] [place] [address] Dr. Rommel Ramirez IG % 0.1 % Normal 0.0-0.5 [facility] Comment on above: Performed By: #### C BC #### [facility] [address] [place] [address] Dr. Rommel Ramirez LYMPH # 2.2 103/ul Normal 1.2-3.8 [facility] Comment on above: Performed By: #### C BC #### [facility] [address] [place] [address] Dr. Rommel Ramirez Lymphocytes/100 WBC (Bld) 32.4 % Normal 20.5-60.0 [facility] Comment on above: Performed By: #### C BC #### [facility] [address] [place] [address] Dr. Rommel Ramirez MANUAL DIFF REQ NO Normal [facility] Comment on above: Performed By: #### C BC #### [facility] [address] [place] [address] Dr. Rommel Ramirez MCH (RBC) [Entitic mass] 31.3 pg Normal 26.7-34.0 [facility] Comment on above: Performed By: #### C BC #### [facility] [address] [place] [address] [address] Rommel Ramirez MCHC (RBC) [Mass/Vol] 34.7 g/dL Normal 29.9-35.2 [facility] Comment on above: Performed By: #### C BC #### [facility] [address] [place] [address] [address] Rommel Ramirez MCV (RBC) [Entitic vol] 90.3 fL Normal 81.0-99.0 [facility] Comment on above: Performed By: #### C BC #### [facility] [address] [place] [address] [address] Rommel Ramirez MONO # 0.5 103/ul Normal 0.3-0.8 [facility] Comment on above: Performed By: #### C BC #### [facility] [address] [place] [address] Dr. Rommel Ramirez Monocytes/100 WBC (Bld) 7.2 % Normal 1.7-12.0 [facility] Comment on above: Performed By: #### C BC #### [facility] [address] [address] Dr. Rommel Ramirez NEUT # 3.9 103/ul Normal 1.4-6.5 [facility] Comment on above: Performed By: #### C BC #### [facility] [address] [place] [address] Dr. Rommel Ramirez Neutrophils/100 WBC (Bld) 59.1 % Normal 43.0-75.0 [facility] Comment on above: Performed By: #### C BC #### [facility] [address] [address] [address] Rommel Ramirez Platelet mean volume (Bld) [Entitic vol] 9.4 fL Critically low 9.5-13.5 [facility] Comment on above: Performed By: #### C BC #### [facility] [address] [address] [address] Rommel Ramirez PLT 349 103/ul Normal 150-450 [facility] Comment on above: Performed By: #### C BC #### [facility] [address] [place] [address] Dr. Rommel Ramirez RBC 4.44 106/ul Normal 4.20-5.40 [facility] Comment on above: Performed By: #### C BC #### [facility] [address] [place] [address] Dr. Rommel Ramirez WBC 6.7 103/ul Normal 4.0-11.0 [facility] Comment on above: Performed By: #### C BC #### [facility] [address] [place] [address] Dr. Rommel Ramirez FREE T3on 10-09-2022 FREE T3 2.78 pg/mlL Normal 2.18-3.98 [facility] Comment on above: Performed By: #### C MP, FT3, TSH #### [facility] [address] [place] [address] Dr. Rommel Ramirez FREE T4on 10-09-2022 Free T4 [Mass/Vol] 0.86 ng/dL Normal 0.76-1.46 [facility] Comment on above: Performed By: #### F T4 #### [facility] [address] [place] [address] Dr. Rommel Ramirez PROF 14(COMP METB)on 022 Albumin [Mass/Vol] 3.9 g/dL Normal 3.4-5.0 [facility] Comment on above: Performed By: #### C MP, FT3, TSH #### [facility] [address] [place] [address] Dr. Rommel Ramirez Albumin/Globulin [Mass ratio] 1.3 {ratio} Normal [facility] Comment on above: Performed By: #### C MP, FT3, TSH #### [facility] [address] [place] [address] Dr. Rommel Ramirez ALP [Catalytic activity/Vol] 59 U/L Normal 46-116 [facility] Comment on above: Performed By: #### C MP, FT3, TSH #### [facility] [address] [place] [address] Dr. Rommel Ramirez ALT [Catalytic activity/Vol] 24 U/L Normal 14-59 [facility] Comment on above: Performed By: #### C MP, FT3, TSH #### [facility] [address] [address] [address] Rommel Ramirez Anion gap [Moles/Vol] 17.2 mmol/L Normal [facility] Comment on above: Performed By: #### C MP, FT3, TSH #### [facility] [address] [address] [address] Rommel Ramirez AST [Catalytic activity/Vol] 22 U/L Normal 15-37 [facility] Comment on above: Performed By: #### C MP, FT3, TSH #### [facility] [address] [address] [address] Rommel Ramirez Bilirubin [Mass/Vol] 0.4 mg/dL Normal 0.2-1.0 [facility] Comment on above: Performed By: #### C MP, FT3, TSH #### [facility] [address] [place] [address] Dr. Rommel Ramirez Calcium [Mass/Vol] 9.0 mg/dL Normal 8.5-10.1 [facility] Comment on above: Performed By: #### C MP, FT3, TSH #### [facility] [address] [place] [address] Dr. Rommel Ramirez Chloride [Moles/Vol] 106 mmol/L Normal 98-107 [facility] Comment on above: Performed By: #### C MP, FT3, TSH #### [facility] [address] [place] [address] Dr. Rommel Ramirez CO2 [Moles/Vol] 23.4 mmol/L Normal 21.0-32.0 [facility] Comment on above: Performed By: #### C MP, FT3, TSH #### [facility] [address] [place] [address] Dr. Rommel Ramirez Creatinine [Mass/Vol] 0.92 mg/dL Normal 0.55-1.02 [facility] Comment on above: Performed By: #### C MP, FT3, TSH #### [facility] [address] [address] [address] Rommel Ramirez EGFR-AF CITIZEN OF [place] >60 Normal >=60 [facility] Comment on above: Performed By: #### C MP, FT3, TSH #### [facility] [address] [address] [address] Rommel Ramirez EGFR-NON AF CITIZEN OF [place] >60 Normal >=60 [facility] Comment on above: Performed By: #### C MP, FT3, TSH #### [facility] [address] [address] [address] Rommel Ramirez Globulin (S) [Mass/Vol] 3.0 g/dL Normal [facility] Comment on above: Performed By: #### C MP, FT3, TSH #### [facility] [address] [address] [address] Rommel Ramirez Glucose [Mass/Vol] 115 mg/dL Critically high 74-106 [facility] Comment on above: Performed By: #### C MP, FT3, TSH #### [facility] [address] [address] [address] Rommel Ramirez Potassium [Moles/Vol] 3.6 mmol/L Normal 3.5-5.1 [facility] Comment on above: Performed By: #### C MP, FT3, TSH #### [facility] [address] [place] [address] Dr. Rommel Ramirez Protein [Mass/Vol] 6.9 g/dL Normal 6.4-8.2 [facility] Comment on above: Performed By: #### C MP, FT3, TSH #### [facility] [address] [address] [address] Rommle Ramirez Sodium [Moles/Vol] 143 mmol/L Normal 136-145 [facility] Comment on above: Performed By: #### C MP, FT3, TSH #### [facility] [address] [address] [address] Rommel Ramirez Urea nitrogen [Mass/Vol] 19.0 mg/dL Critically high 7.0-18.0 [facility] Comment on above: Performed By: #### C MP, FT3, TSH #### [facility] [address] [address] [address] Rommel Ramirez Urea nitrogen/Creatinine [Mass ratio] 20.7 mg/mg Normal [facility] Comment on above: Performed By: #### C MP, FT3, TSH #### [facility] [address] [address] [address] Rommel Ramirez TSHon 10-09-2022 TSH 2.672 uIU/mL Normal 0.358-3.740 [facility] Comment on above: Performed By: #### C MP, FT3, TSH #### [facility] [address] [address] [address] Rommel Ramirez PAP ACOG PANEL 2: 30 to 65on 08-22-2022 . . Normal [facility] Comment on above: Result Comment: Perf ormed at: WB Performed By: #### [id number] #### [facility] [address] [place] [address] Dr. Rommel Ramirez Age Gdln ACOG Testing 30-65 Normal [facility] Comment on above: Performed By: #### [id number] #### [facility] [address] [address] [address] Rommel Ramirez DIAGNOSIS: Comment Normal [facility] Comment on above: Result Comment: NEGA TIVE FOR INTRAEPITHELIAL LESION OR MALIGNANCY. SHIFT IN [place] SUGGESTIVE OF BACTERIAL VAGINOSIS. Performed at: WB Performed By: #### [id number] #### [facility] [address] [place] [address] Dr. Rommel Ramirez HPV Aptima Negative Normal Negative [facility] Comment on above: Result Comment: This nucleic acid amplification test detects fourteen high-risk HPV types (16,18,31,33,35,39,45,51,52,56,58,59,66,68) without differentiation. Performed at: =G Performed By: #### [id number] #### [facility] [address] [place] [address] Dr. Rommel Ramirez Methodology: Comment Normal [facility] Comment on above: Result Comment: This liquid based ThinPrep(R) pap test was screened with the use of an image guided system. Performed at: WB Performed By: #### [id number] #### [facility] [address] [place] [address] Dr. Rommel Ramirez Note: Comment Normal [facility] Comment on above: Result Comment: The Pap smear is a screening test designed to aid in the detection of premalignant and malignant conditions of the uterine cervix. It is not a diagnostic procedure and should not be used as the sole means of detecting cervical cancer. Both false-positive and false-negative reports do occur. . Performed at: WB Performed By: #### [id number] #### [facility] [address] [address] [address] Rommel Ramirez Performed by: Comment Normal [facility] Comment on above: Result Comment: Fatou Dillon, Tractor Crane Engineer (ASCP) Performed at: WB Performed By: #### [id number] #### [facility] [address] [place] [address] Dr. Rommel Ramirez Specimen adequacy: Comment Normal [facility] Comment on above: Result Comment: Sati sfactory for evaluation. Performed at: WB Performed By: #### [id number] #### [facility] [address] [place] [address] Dr. Rommel Ramirez Vital Signs Date Time Vital Sign Value Performing Clinician Pranavi magdalene 08-26-2024 10:29040 Body mass index (BMI) [Ratio] 19.14 kg/m2 [employer] Work Phone: [facility] 08-26-2024 10:29040 Body weight 52.16 kg [employer] Work Phone: [facility] 08-26-2024 10:29-040 Diastolic blood pressure 84 mm[Hg] [employer] Work Phone: [facility] 08-26-2024 10:29-040 Systolic blood pressure 136 mm[Hg] [employer] Work Phone: [facility] 04-04-2024 09:45-0400 Diastolic blood pressure 90 mm[Hg] Aubrey Barrazanus [facility] 04-04-2024 09:45-0400 Heart rate 94 /min Aubrey Barrazanus [facility] 04-04-2024 09:45-0400 SaO2% (BldA) [Mass fraction] 99 % Aubrey Barrazan [facility] 04-04-2024 09:45-0400 Systolic blood pressure 138 mm[Hg] Aubrey GiveterfernandoMediGain [facility] Encounters Encounter Date Encounter Type Care Provider Facility Start: 08-26-2024 End: 08-26-2024 Bamboo flowsheet Meek Clementina DO Work Phone: [facility] Start: 08-26-2024 End: 09-02-2024 Bamboo flowsheet Meek Clementina DO Work Phone: [facility] Start: 08-26-2024 End: 09-02-2024 Clinisync Result Encounter Meek Clementina DO Work Phone: [facility] External Department Unsolicited Start: 08-26-2024 End: 08-26-2024 Patient encounter procedure Meek Celmentina DO Work Phone: [facility] Healthcare Work Phone: Start: 08-26-2024 End: 08-26-2024 Periodic preventive med est patient 40-64yrs Meek Clementina DO Work Phone: [facility] Comment on above: Well woman exam with routine gynecological exam; Breast cancer screening by mammogram; Postmenopausal state; Vaginal dryness, menopausal Start: 08-26-2024 End: 08-26-2024 ambulatory MEEK CLEMENTINA Not Available Start: 08-11-2024 End: 08-11-2024 ambulatory Grace Momin Facility:[facility] Start: 07-07-2024 End: 07-07-2024 ambulatory [facility] Start: 06-23-2024 End: 06-23-2024 ambulatory AKILA SHARMA Not Available Start: 06-05-2024 End: 06-05-2024 ambulatory Grace Momin [facility] Start: 05-05-2024 End: 05-05-2024 ambulatory Grace Momin Facility:[facility] Start: 04-04-2024 End: 04-10-2024 Pre-admission assessment Aubrey Glass [facility] Start: 04-04-2024 End: 04-04-2024 ambulatory Grace Momin Facility:[facility] Start: 04-04-2024 End: 04-04-2024 Patient encounter procedure Aubrey Zuleyma Givetertana [facility] Start: 04-03-2024 End: 04-03-2024 ambulatory Grace Momin Facility:[facility] Start: 03-27-2024 End: 03-27-2024 ambulatory Grace Momin Facility:[facility] Start: 03-27-2024 End: 03-27-2024 Patient encounter procedure Grace Momin [facility] Start: 03-25-2024 End: 03-25-2024 ambulatory Grace Momin Facility:[facility] [place] Start: 02-25-2024 End: 02-25-2024 ambulatory Grace Momin Facility:[facility] Start: 01-14-2024 End: 01-14-2024 ambulatory Grace Momin Facility:[facility] Start: 01-01-2024 ambulatory Grace Momin Facility:[facility] Start: 10-09-2022 End: 10-10-[address] CHRISTI SRINIVASAN Facility: Start: 08-15-2022 End: 08-15-[address] MEEK MCRAE Facility: Procedures Date Procedure Procedure Detail Performing Clinician Start: 08-26-2024 IGP,APTIMA HPV,AGE GDLN Meek Clementina DO Work Phone: Start: 09-12-2023 Mammography Meek Fazi o DO Work Phone: Start: 08-21-2023 Microscopic observat ion [Identifier] in Cervix by Cyto stain Meek Clementina DO Work Phone: Bilateral tubal ligation Damon Momin Breast surgery (qual ifier value) Grace Momin Comment on above: has 4 breast, 2 evelyn adalberto Dilatation (morpholo gic abnormality) Grace Momin H/O: hysterectomy Grace trejo Comment on above: 2018 Laparoscopy Grace Momin Plan of Treatment Date Care Activity Detail Author Start: 08-21-2026 Screening for malignant neoplasm of cervix [facility] Start: 09-03-2025 End: 09-03-2025 Patient encounter procedure 09/03/2025 11:00 AM EDT Office Visit [facility] [address] [place] [address] Meek Mcrae, DO [address] [place] [address] [facility] Start: 09-12-2024 Screening for malignant neoplasm of breast Mammogram [facility] Start: 08-26-2024 End: 08-26-2025 DXA Skeletal system Views for bone density DEXA bone density Imaging Routine Postmenopausal state Expected: 08/26/2024 (Approximate), Expires: 08/26/2025 [facility] Comment on above: Expected: 08/26/2024 (Approximate), Expires: 08/26/2025 Start: 08-26-2024 End: 10-26-2025 MG Breast - bilateral Screening Bilateral screening mammogram Imaging Routine Breast cancer screening by mammogram Expected: 08/26/2024, Expires: 10/26/2025 [facility] Work Phone: Comment on above: Expected: 08/26/2024 , Expires: 10/26/2025 Start: 08-26-2024 End: 08-26-2024 Patient encounter procedure 08/26/2024 10:00 AM EDT Office Visit [facility] [address] [place] [address] Meek Mcrae, DO [address] [place] [address] Arrived [facility] Comment on above: Arrived Start: 07-13-2024 Influenza vaccination Influenza Vacc ine (#1) [facility] Start: 1998 Screening for malignant neoplasm of cervix HPV/Cotest [facility] Start: 1968 Screening for malignant neoplasm of colon [facility] THIN PREP TIS PAP AN D HR HPV DNA THIN PREP TIS PAP AND HR HPV DNA Pathology and Cytology Routine Well woman exam with routine gynecological exam Ordered: 08/26/2024 [facility] Comment on above: Ordered: 08/26/2024 Immunizations Immunization Date Immunization Notes Care Provider Fa cility 08-12-2023 influenza virus vaccine, unspecified formulation Grace Momin [facility] 01-20-2023 zoster vaccine recombinant Graceramos Momin [facility] 10-04-2022 zoster vaccine recombinant Graceramos Momin [facility] 09-04-2022 pneumococcal 20-fausto nt conjugate vaccine Grace Momin [facility] 08-28-2022 influenza virus vaccine, unspecified formulation Grace Momin [facility] 07-31-2022 SARS-CoV-2 (COVID-19 ) [id number] Grace Momin [facility] 03-01-2022 SARS-CoV-2 mRNA (opwrkrbqavo-undw-dimpb se) vaccine Grace Momin [facility] 10-30-2021 SARS-CoV-2 (COVID-19 ) mRNA BNT-162b2 vax Grace Momin [facility] 08-22-2021 influenza virus vaccine, unspecified formulation Grace Momin [facility] 02-08-2021 SARS-CoV-2 (COVID-19 ) mRNA BNT-162b2 vax Grace Momin [facility] 01-18-2021 SARS-CoV-2 (COVID-19 ) mRNA BNT-162b2 vax Grace Momin [facility] 08-23-2020 influenza virus vaccine, unspecified formulation Grace Momin [facility] 01-10-2020 tetanus toxoid, redu rajan diphtheria toxoid, and acellular pertussis vaccine, adsorbed Grace Momin [facility] 12-05-2019 influenza virus vaccine, unspecified formulation Grace Momin [facility] 08-05-2019 influenza virus vaccine, unspecified formulation Grace Momin [facility] 08-12-2018 influenza virus vaccine, unspecified formulation Grace Momin [facility] 07-30-2018 influenza virus vaccine, unspecified formulation Grace Momin [facility] 07-30-2018 tetanus toxoid, redu rajan diphtheria toxoid, and acellular pertussis vaccine, adsorbed Grace Momin [facility] 08-09-2017 influenza virus vaccine, unspecified formulation Grace Momin [facility] 09-01-2016 influenza virus vaccine, unspecified formulation Grace Momin [facility] 09-28-2015 influenza virus vaccine, unspecified formulation Grace Momin [facility] 07-27-2014 influenza virus vaccine, unspecified formulation Grace Momin [facility] Payers Date Payer Category Payer Medicaid [facility]3] [id number] 2022 Medicaid [id number] 1968 Unknown [id number] 1968 Unknown [id number] 1968 Unknown [id number] 1968 Unknown [id number] 1968 Unknown [id number] 1968 Unknown [id number] 1968 Unknown [id number] 1968 Unknown [id number] [id number] 1968 Unknown [id number] [id number] 1968 Unknown [id number] 1968 Unknown [id number] 1968 Unknown [id number] 1968 Unknown [id number] 1968 Unknown [id number] 1959 Unknown [id number] Social History Date Type Detail Facility Start: 02-25-2024 End: 04-04-2024 Tobacco smoking status Light tobacco smoker (finding) [facility] [place] Start: 06-23-2024 Sex Assigned At Female F [facility] Start: 06-23-2024 Tobacco smoking stat us UTIS Smokes tobacco daily [facility] History of tobacco use Cigarette Smoker [facility] Start: 06-23-2024 End: 08-26-2024 Alcoholic beverage intake Lifetime non-drinker (finding) [facility] Start: 06-23-2024 History of Social function [facility] Start: 1970 Sex assigned at Not on file [facility] Functional Status Date Assessment Result Facility 04-04-2024 Functional Status N/A [facility] History of Present illness Narrative 08-26-2024 Tegan Ybarra LPN - 08/26/2024 10:00 AM EDT Note Date & Type Note Facility 08-26-2024 History of Presen t illness Narrative Reason for Appointment: Patient ID: Camryn Williamson is a 54 y.o. female who presents for Well Women Visit Patient presents today for Annual Exam. MEDICATIONS Current Outpatient Medications Medication Instructions calcium citrate (CALCITRATE) 950 mg, Oral, Every morning calcium 200 mg, Oral, Daily celecoxib (CeleBREX) 200 MG capsule Every 12 hours hydroCHLOROthiazide (HYDRODIURIL) 25 mg, Oral losartan (COZAAR) 100 mg, Oral metoprolol succinate XL (TOPROL-XL) 25 mg, Oral Norvasc 5 mg, Oral Nurtec 75 mg, Oral potassium chloride ER (Micro-K) 10 MEQ ER capsule Refills(s) 0 ALLERGIES Allergies Allergen Reactions Aspirin Hives and Other PROBLEMS Active Ambulatory Problems Diagnosis Date Noted No Active Ambulatory Problems Resolved Ambulatory Problems Diagnosis Date Noted No Resolved Ambulatory Problems Past Medical History: Diagnosis Date Depression with anxiety Vaginal dryness HISTORY PAST MEDICAL HISTORY SOCIAL HISTORY Past Medical History: Diagnosis Date Depression with anxiety Vaginal dryness Social History Tobacco Use Smoking status: Every Day Current packs/day: 0.50 Types: Cigarettes Smokeless tobacco: Not on file Vaping Use Vaping status: Never Used Substance Use Topics Alcohol use: Never Drug use: Never FAMILY HISTORY Family History Problem Relation Name Age of Onset Heart attack Mother Lung cancer Father SURGICAL HISTORY Past Surgical History: Procedure Laterality Date BREAST LUMPECTOMY CARPAL TUNNEL RELEASE Left 10/10/2017 Dr. Mcgarry CARPAL TUNNEL RELEASE Right 10/29/2017 Dr. Mcgarry ENDOMETRIAL ABLATION HYSTERECTOMY PAP SMEAR 04/19/2021 neg TUBAL LIGATION REVIEW OF SYSTEMS Review of Systems: Review of Systems Constitutional: Negative. HENT: Negative. Eyes: Negative. Respiratory: Negative. Cardiovascular: Negative. Gastrointestinal: Negative. Genitourinary: Negative. Musculoskeletal: Negative. Skin: Negative. Neurological: Negative. All other systems reviewed and are negative. Hematological: Negative. Endocrine: Negative. Allergic/Immunologic: Negative. OBJECTIVE Objective: Physical Exam Constitutional: Appearance: Normal appearance. She is well-developed. Genitourinary: Vulva normal. Vaginal cuff intact. Cervix is absent. Uterus is absent. Breasts: Breasts are soft. Right: Normal. Left: Normal. Cardiovascular: Rate and Rhythm: Normal rate and regular rhythm. Abdominal: General: Bowel sounds are normal. There is no distension. Palpations: Abdomen is soft. Tenderness: There is no abdominal tenderness. There is no guarding or rebound. Musculoskeletal: General: No swelling. Normal range of motion. Right lower leg: No edema. Left lower leg: No edema. Neurological: Mental Status: She is alert and oriented to person, place, and time. Skin: General: Skin is warm and dry. Psychiatric: Mood and Affect: Mood normal. Behavior: Behavior normal. Vitals and nursing note reviewed. Exam conducted with a staff home therapy rn present. Vitals: Estimated body mass index is 19.14 kg/m as calculated from the following: Height as of 08/21/23: 5' 5 . Weight as of this encounter: 115 lb. BP: 136/84 No LMP recorded. ASSESSMENT & PLAN ICD-10-CM 1. Well woman exam with routine gynecological exam Z01.419 THIN PREP TIS PAP AND HR HPV DNA 2. Breast cancer screening by mammogram Z12.31 Bilateral screening mammogram Bilateral screening mammogram 3. Postmenopausal state Z78.0 DEXA bone density Annual: Patient presents today for an annual exam. Patient states she is doing well and has complaints. Pap was obtained without difficulty and patient given mammogram order to have scheduled/obtained. Pt states she is very avitia lately and gets irritated, Orders Placed This Encounter Procedures Bilateral screening mammogram DEXA bone density Follow Up: Patient is to return in one year for annual unless needed otherwise. Documented by Tegan Ybarra LPN on behalf of: Anuradha Boateng PA-C documented in this encounter [facility] Clinical Note 07-07-2024 Note Date & Type [...] numbers. This can be done either in German ([place] or metric measurements. Note that charts and online BMI calculators are available to help you find your BMI quickly and easily without having to do these calculations yourself. To calculate your BMI in German ([place] measurements: 1. Measure your weight in [...] for Disease Control and Prevention: www.cdc.gov ? [place] [employer]: www.heart.org ? National Heart, Lung, and Blood [place]: www.nhlbi.nih.gov Summary ? Body mass index (BMI) is a number that is calculated from a person's weight and height. ? BMI may help estimate how much of a person's weight is composed of fat. BMI can help identify those who may be at higher risk for certain medical problems. ? BMI can be measured using German measurements or metric measurements. ? BMI charts are used to identify whether you are underweight, normal weight, overweight, or obese. This information is not intended to replace advice given to you by your health care provider. Make sure you discuss any questions you have with your health care provider. Document Revised: 07/21/2020 Document Reviewed: 05/28/2020 [employer] Patient Education ? 2022 [employer]. [facility] Clinical Note 06-05-2024 Note Date & Type [...] wine (148 mL), (more content not included)... [facility] Evaluation + Plan note Note Date & Type Note Facility Evaluation + Plan note No data available for this section [facility] Evaluation + Plan note LaboratoryRadiology Note Date & Type Note Facility Evaluation + Plan note Future Appointments Appointment Date:04/09/2024 10:15:00 AM Scheduled Provider: Location:[facility] Appointment Type:CV Stress ([facility]) Appointment Date:05/09/2024 09:00:00 AM Scheduled Provider:Aubrey Glass MD [facility] [place] Appointment Type:Cardiology Follow Up ([facility]) Appointment Date:06/05/2024 09:30:00 AM Scheduled Provider:Grace Momin MD Location:[facility] Appointment Type: Open Future Scheduled TestsCBC w/ Auto Diff 04/03/24Comprehensive Metabolic Panel 04/03/24Lipid Panel 04/03/24ECG Stress Exercise 04/09/24 [facility] Evaluation + Plan note Laboratory Note Date & Type Note Facility Evaluation + Plan note Future Appointments Appointment Date:05/09/2024 09:00:00 AM Scheduled Provider:Aubrey Glass MD [facility] [place] Appointment Type:Cardiology Follow Up ([facility]) Appointment Date:06/05/2024 09:30:00 AM Scheduled Provider:Grace Momin MD Location:[facility] Appointment Type: Open Future Scheduled TestsCBC w/ Auto Diff 04/03/24Comprehensive Metabolic Panel 04/03/24Lipid Panel 04/03/24 [facility] Evaluation note Note Date & Type Note Facility Evaluation note Diagnosis Well woman exam with routine gynecological exam Routine gynecological examination Breast cancer screening by mammogram Postmenopausal state Asymptomatic postmenopausal status (age-related) (natural) Vaginal dryness, menopausal documented in this encounter [facility] Discharge instructions Note Date & Type Note Facility Hospital Discharge instructions No data available for this section [facility] Progress note Note Date & Type Note Facility Progress note No data available for this section [facility] Summary Purpose Family History No Family History [...] section and content) DATE CREATED AUTHOR 10/14/2022 [facility] DATE CREATED AUTHOR AUTHOR'S ORGANIZ ATION 08/13/2024 [facility] DATE CREATED AUTHOR AUTHOR'S ORGANIZ ATION 08/28/2024 [facility] EPIC Patient Care team informatio n (unrecognized section and content) [employer]room [employer]ivator Relationship Specialty Start Date End Date Grace Mmoin MD [address] [place] [address] PCP - General Family Medicine 08/26/24 [employer]ivator Relationship Specialty Start Date End Date Grace Momin MD [address] [place] [address] PCP - General Family Medicine 08/26/24 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 [employer] provides no warranty or guarantee of the accuracy or completeness of information in this document.
== END 2024-09-25 16:32 | disposition home or self-care (01) ==
LOC: MAMMO 16:32
PROVIDERS: Visit Provider Obstetrics & Gynecology
DX: Z12.31 Encounter for screening mammogram for malignant neoplasm of breast (principal); Z80.1 Family history of malignant neoplasm of trachea, bronchus and lung
CPT/HCPCS: 77063; 77067

== ENCOUNTER 2025-07-16 14:00 | Outpatient (OUT) | payer MEDICAID, SELFPAY ==
--- NOTE | 2025-07-16 14:05 | US_ITS ---
[address] [address] Patient Name: MESFIN WILLIAMSON MRN: [id number] date: 1970 Sex: F Assigned Patient Location: [place] Current Patient Location: [place] Accession/Order Number: [id number] Exam Date: 07/16/2025 14:06 Report Date: 07/16/2025 15:17 At the request of: JAKY REDMOND [employer]URING ENGINEER Procedure: US renal BI Bilateral Renal Ultrasound HISTORY: Renal insufficiency COMPARISON: None RIGHT kidney measures 8.2 cm. LEFT kidney measures 8.7 cm. Hydronephrosis: No hydronephrosis. Bowel right pelviectasis RENAL STONE: 3 mm nonobstructing right renal calculus. RENAL LESIONS: No renal lesion identified. URINARY BLADDER: Unremarkable REPRODUCTIVE STRUCTURES Not assessed IMPRESSION : No hydronephrosis. Impression dictated by: Lito Ramey M.D. 07/16/2025 3:17 PM Dictation Location: [place] [address] Electronically authenticated by: [id number] Y Date: 07/16/2025 15:17
--- OUTSIDE RECORDS SUMMARY | 2025-07-16 14:22 | XMS_ITS | CCD ---
Author Organization [facility] ion Partnership [facility] Care Team Providers Care Economic Research Assistant Name Role Phone DR CHRISTI SRINIVASAN Attending Unavailable ZARINA, DR CHRISTI Garcia Consulting Unavailable ZARINA, DR CHRISTI Garcia Primary Care Unavailable ZARINA, DR CHRISTI Garcia Admitting Unavailable CLEMENTINA, DR EDEN Consulting Unavailable CLEMENTINA, DR EDEN Admitting Unavailable CLEMENTINA, DR EDEN Attending Unavailable ZARINA, DR CHRISTI Garcia Primary Care Unavailable Grace Momin. Primary Care Physician [phone] Grace Momin Attending Unavailable Grace Momin Attending [...] Unavailable Grace Momin MD Primary Care Provider [phone] Allergies Allergy Classification Reported Allergen(s) Allergy Type Date of Onset Reaction(s) Facility Aspirin (1 source) Aspirin; Translations: [aspirin] Drug Allergy Unknown (qualifier value) [facility] (2 sources) Aspirin; Translations: [aspirin] Drug Allergy 3 [facility] (1 source) Codeine Drug Allergy [facility] (1 source) metroNIDAZOLE Drug Allergy [facility] (2 sources) Aspirin; Translations: [aspirin] Drug Allergy Unknown (qualifier value) [facility] (4 sources) Aluminum aspirin Drug Allergy [...] every 12 (twelve) hours Active estrogens, conjugated ([place]) 0.625 mg/ml vaginal cream (3 sources) Estrogen [...] Once, # 14 tab(s), Refills(s) 0, Pharmacy: [facility]/pharmacy #[id number], 167.1, cm, 02/25/24 11:22:00 EDT, [...] GDLNon AGE GDLN ACOG TESTING Note . [facility] Comment on above: TESTS RESULT FLAG UN ITS REF RANGE LAB Clinician Provided Cytology Information Source.............Vagina No. of containers..01 ThinPrep Vial Age Algo ACOG Maricruz... 28 FLAG LEGEND: L-Low Normal,H-High Normal,LL-Alert Low,HH-Alert High <-Panic Low,>-Panic High,A-Abnormal,AA-Critical Abnormal Performed at: 01 =[address] [address] Tosha Malcolm MD, HPV APTIMA Negative Negative [facility] Comment on above: This nucleic acid am plification test detects fourteen high- risk HPV types (16,18,31,33,35,39,45,51,52,56,58,59,66,68) without differentiation. Performed at: =[address] [id number] Technician Terminal And Repeater: Tosha Malcolm MD, Phone: [phone] Performed at: [address] [id number] Technician Terminal And Repeater: Tosha Malcolm MD, Phone: [phone] IGP, APTIMA HPV, RFX 16/18,[address] [facility] Comment on above: TESTS RESULT FLAG UN ITS REF RANGE LAB DIAGNOSIS: 02 NEGATIVE FOR INTRAEPITHELIAL LESION OR MALIGNANCY. Specimen adequacy: 02 Satisfactory for evaluation. Performed by: 02 Aparna Busby, Collar Separator (ASCP) . 02 Note: Note 02 The [...] <-Panic Low,>-Panic High,A-Abnormal,AA-Critical Abnormal Performed at: [address] [address] Tosha Malcolm MD, SPATULA-ALONE [facility] [place] Family Medicine Office/Clini c Noteon 07-07-2024 Family [...] Daily, # 90 tab(s), Refills(s) 0, Pharmacy: [facility]/pharmacy #[id number], 167, cm, 07/07/24 16:12:00 EDT, Height/Length [...] not intractable, without status migrainosus) [facility]. Patient responds very well to this. Ordered: escitalopram, 10 mg = 1 tab(s), Oral, Daily, # 90 tab(s), Refills(s) 0, Pharmacy: [facility]/pharmacy #[id number], 167, cm, 07/07/24 16:12:00 EDT, Height/Length [...] Daily, # 90 tab(s), Refills(s) 0, Pharmacy: [facility]/pharmacy #[id number], 167, cm, 07/07/24 16:12:00 EDT, Height/Length [...] Daily, # 90 tab(s), Refills(s) 0, [facility]: [id number], 167, cm, 07/07/24 16:12:00 EDT, Height/Length [...] Daily, # 90 tab(s), Refills(s) 0, Pharmacy: [id number], 167, cm, 07/07/24 16:12:00 EDT, Height/Length Dosing, 51.6, kg, 07/07/24 16:12:00 EDT, Weight Dosing Orders: metoprolol, 25 mg = 1 tab(s), Oral, Daily, # 30 tab(s), Refills(s) 0, Pharmacy: [id number], 167, cm, 06/05/24 9:44:00 EDT, Height/Length [...] Ongoing Anxiety (more content not included)... Normal [facility] Comment on above: Result Comment: Elec [...] PM EDT With: Grace Momin MD Where: [place] [id number]- Medications What How Much When Why Instructions [...] choosing us for your care. Normal [facility] Family Medicine Office/Clini c Noteon 06-05-2024 Family [...] Daily, # 30 tab(s), Refills(s) 0, Pharmacy: [facility]/pharmacy #[id number], 167, cm, 06/05/24 9:44:00 EDT, Height/Length Dosing, 52.7, kg, 06/05/24 9:44:00 EDT, Weight Dosing rimegepant, 75 mg = 1 tab(s), Oral, Once, # 14 tab(s), Refills(s) 0, Pharmacy: [facility]/pharmacy #[id number], 167, cm, 06/05/24 9:44:00 EDT, [...] inactivated 08/28 (more content not included)... Normal [facility] Comment on above: Result Comment: Elec tronically Signed By: Davi ROBLES, Grace Loomis.br\Date and Time Signed: 06/05/24 09:54 EDT Physician Referralon 024 Physician Referral [id number] [id number]#1.00 TIFF Normal [facility] Family Medicine Office/Clini c Noteon 05-05-2024 [...] day(s), # 21 tab(s), Refills(s) 0, Pharmacy: [id number], 167, cm, 05/05/24 18:15:00 EDT, Height/Length Dosing, 53.6, kg, 05/05/24 18:15:00 EDT, Weight Dosing Body Mass Index (BMI) documented 3008F Current tobacco smoker 1034F Depression Screening Negative 3352F [facility] External Ambulatory Referral Influenza immunization administered or [...] day(s), # 21 tab(s), Refills(s) 0, Pharmacy: [facility]/pharmacy #[id number], 167, cm, 05/05/24 18:15:00 EDT, Height/Length Dosing, 53.6, kg, 05/05/24 18:15:00 EDT, Weight Dosing Body Mass Index (BMI) documented 3008F Current tobacco smoker 1034F Depression Screening Negative 3352F [facility] External Ambulatory Referral Influenza immunization administered or [...] day(s), # 21 tab(s), Refills(s) 0, Pharmacy: [facility]/pharmacy #[id number], 167, cm, 05/05/24 18:15:00 EDT, Height/Length Dosing, 53.6, kg, 05/05/24 18:15:00 EDT, Weight Dosing Body Mass Index (BMI) documented 3008F Current tobacco smoker 1034F Depression Screening Negative 3352F [facility] External Ambulatory Referral Influenza immunization administered or [...] day(s), # 21 tab(s), Refills(s) 0, Pharmacy: [facility]/pharmacy #[id number], 167, cm, 05/05/24 18:15:00 EDT, [...] day(s), # 21 tab(s), Refills(s) 0, Pharmacy: [facility]/pharmacy #[id number], 167, cm, 05/05/24 18:15:00 EDT, [...] No qualifying (more content not included)... Normal [facility] Comment on above: Result Comment: Elec [...] oz glass (more content not included)... Normal [facility] ECG 12-Leadon 04-04-2024 ECG 12-Lead [id number]#1.00T IFF Normal [facility] Heart and Vascular Office/Cl inic Noteon [...] influenza vir (more content not included)... Normal [facility] Comment on above: Result Comment: Elec tronically Signed By: Quan ROBLES, Aubrey Amor\.br\Date and Time Signed: 04/04/24 11:14 EDT Physician Orderon 04-04-2024 Physician Order [id number]#1.00T IFF Normal [facility] Ambulatory Visit Summaryon 0 04-03-2024 Ambulatory [...] AM EDT With: Grace Momin MD Where: [facility] [place] Invalid Interpretation Code Smoker [facility] Medicine Office/Clini c Noteon 04-03-2024 Family Medicine [...] Daily, # 90 tab(s), Refills(s) 0, Pharmacy: [facility]/pharmacy #[id number], 167, cm, 04/03/24 8:54:00 EDT, Height/Length Dosing, 53.5, kg, 04/03/24 8:54:00 EDT, Weight Dosing losartan, 100 mg = 1 tab(s), Oral, Daily, # 90 tab(s), Refills(s) 0, Pharmacy: [facility]/pharmacy #[id number], 167, cm, 04/03/24 8:54:00 EDT, Height/Length Dosing, 53.5, kg, 04/03/24 8:54:00 EDT, Weight Dosing CBC w/ Auto Diff Comprehensive Metabolic Panel [facility] Internal Ambulatory Referral Lipid Panel 2. Migraine (G43.909: Migraine, unspecified, not intractable, without status migrainosus) - Needs samples - Out of [facility] - Will try ubrelvy Ordered: hydrochlorothiazide, 25 mg = 1 tab(s), Oral, Daily, # 90 tab(s), Refills(s) 0, Pharmacy: [facility]/pharmacy #[id number], 167, cm, 04/03/24 8:54:00 EDT, Height/Length Dosing, 53.5, kg, 04/03/24 8:54:00 EDT, Weight Dosing losartan, 100 mg = 1 tab(s), Oral, Daily, # 90 tab(s), Refills(s) 0, Pharmacy: [facility]/pharmacy #[id number], 167, cm, 04/03/24 8:54:00 EDT, Height/Length Dosing, 53.5, kg, 04/03/24 8:54:00 EDT, Weight Dosing CBC w/ Auto Diff Comprehensive Metabolic Panel Lipid Panel 3. PVD (peripheral vascular disease) (I73.9: Peripheral vascular disease, unspecified) - Pt is unsure where this diagnosis came from. - Will monitor Ordered: hydrochlorothiazide, 25 mg = 1 tab(s), Oral, Daily, # 90 tab(s), Refills(s) 0, Pharmacy: [facility]/pharmacy #[id number], 167, cm, 04/03/24 8:54:00 EDT, Height/Length Dosing, 53.5, kg, 04/03/24 8:54:00 EDT, Weight Dosing losartan, 100 mg = 1 tab(s), Oral, Daily, # 90 tab(s), Refills(s) 0, Pharmacy: [facility]/pharmacy #[id number], 167, cm, 04/03/24 8:54:00 EDT, Height/Length Dosing, 53.5, kg, 04/03/24 8:54:00 EDT, Weight Dosing CBC w/ Auto Diff Comprehensive Metabolic Panel [facility] Internal Ambulatory Referral Lipid Panel NM Myocardial Spect Rest/Stress 1 Day 4. Decreased stamina (R53.83: Other fatigue) - Concerned there is underlying CAD - Sending to Cardio since she has an elevated TID Ordered: CBC w/ Auto Diff Comprehensive Metabolic Panel [facility] Internal Ambulatory Referral Lipid Panel NM Myocardial Spect Rest/Stress 1 Day 5. Smoker (F17.200: Nicotine dependence, unspecified, uncomplicated) - Discussed smoking cessation. - Pt is cutting down. Ordered: hydrochlorothiazide, 25 mg = 1 tab(s), Oral, Daily, # 90 tab(s), Refills(s) 0, Pharmacy: [facility]/pharmacy #[id number], 167, cm, 04/03/24 8:54:00 EDT, Height/Length Dosing, 53.5, kg, 04/03/24 8:54:00 EDT, Weight Dosing losartan, 100 mg = 1 tab(s), Oral, Daily, # 90 tab(s), Refills(s) 0, Pharmacy: [facility]/pharmacy #[id number], 167, cm, 04/03/24 8:54:00 EDT, [...] surgery, Dil (more content not included)... Normal [facility] Comment on above: Result Comment: Elec [...] Tab, 100 mg= 1 tab(s), Oral, Daily [facility] O[facility] 75 mg oral tablet, disintegrating, 75 mg= 1 tab(s), Oral, Once, Unable to obtain: getting samples Allergies aspirin (Unknown) Immunizations Vaccine Date Status influenza virus vaccine, inactivated 08/12/2023 Recorded zoster vaccine, inactivated 01/20/2023 Recorded zoster vaccine, inactivated 10/04/2022 Recorded pneumococcal 20-valent conjugate vaccine 09/04/2022 Recorded influenza virus vaccine, inactivated 08/28/2022 Recorded SARS-CoV-2 (COVID-19) [id number] 07/31/2022 Recorded SARSCoV2 mRNA(snowmptfk-whsc-trz ros) vac 03/01/2022 Recorded SARS-CoV-2 (COVID-19) mRNA [...] influenza virus vaccine, inactivated 07/27/2014 Recorded Normal [facility] Physician Referralon 024 Physician Referral [id number]#1.00 TIFF Normal [facility] NM Myocardial Spect Rest/Str ess 1 [...] Stress Dose (mCi Tc99M Cardiolite): 29.7 Normal [facility] Consent for Treatmenton 03-12 Consent for Treatment [id number]#1.00T IFF Normal [facility] Insurance Correspondenceon 0 03-06-2024 Insurance Correspondence [id number]#1.00 TIFF Normal [facility] Family Medicine Office/Clini c Noteon 02-29-2024 [...] site) The patient is advised to take ksdj-skq-petcuzk medication. Should there be no improvement, further [...] with voice recognition artificial intelligence software, specifically SCOUPY, Motista and or Tripvisto. Substitutions may have occurred due to the inherent limitations of voice recognition and artificial intelligence software. ATTESTATION: Documentation services were performed after patient or guardian consented to allow [employer] to record this visit. JERAMY consumer affairs specialist and provider reviewed before signing. JERAMY: [...] of hystere (more content not included)... Normal [facility] Comment on above: Result Comment: Elec tronically Signed By: Ross Grace ROBLES\.br\Date and Time Signed: 02/29/24 09:45 EDT\.br\Electronically Co-Signed By: Ezra Negron\.br\Date and Time Co-Signed: 02/25/24 13:40 EDT Family Medicine Office/Clini c Noteon 01-15-2024 Family Medicine Office/Clinic Note HPI Staff Camryn is a 53 year old female presenting [facility] Establish Care: History:anxiety, carpal tunnel, depression, [...] pressure, which remains elevated. She is taking lmvk-pxc-phjrwab calcium supplements for her osteoporosis condition. She [...] with voice recognition artificial intelligence software, specifically SCOUPY, Motista and or Tripvisto. Substitutions may have occurred due to the inherent limitations of voice recognition and artificial intelligence software. ATTESTATION: Documentation services were performed after patient or guardian consented to allow [employer] to record this visit. JERAMY consumer affairs specialist and provider reviewed before signing. JERAMY: [...] (Unknown) S (more content not included)... Normal [facility] Comment on above: Result Comment: Elec tronically Signed By: Grace Momin MD\.br\Date and Time Signed: 01/15/24 18:21 EST\.br\Electronically Co-Signed By: Ezra Negron\.br\Date and Time Co-Signed: 01/14/24 11:54 EST CBC AUTO DIFFon 10-09-2022 BASO # 0.0 103/ul Normal 0.0-0.1 [facility] Comment on above: Performed By: #### C BC #### [facility] [address] [place] [address] Dr. Rommel Ramirez Basophils/100 WBC (Bld) 0.3 % Normal 0.2-2.0 [facility] Comment on above: Performed By: #### C BC #### [facility] [address] [place] [address] Dr. Rommel Ramirez EO # 0.1 103/ul Normal 0.0-0.7 [facility] Comment on above: Performed By: #### C BC #### [facility] [address] [place] [address] [address] Rommel Ramirez Eosinophils/100 WBC (Bld) 0.9 % Normal 0.9-7.0 [facility] Comment on above: Performed By: #### C BC #### [facility] [address] [place] [address] Dr. Rommel Ramirez Erythrocyte distribution width (RBC) [Ratio] 12.1 % Normal 11.0-15.0 [facility] Comment on above: Performed By: #### C BC #### [facility] [address] [place] [address] Dr. Rommel Ramirez Hematocrit (Bld) [Volume fraction] 40.1 % Normal 36.0-48.0 [facility] Comment on above: Performed By: #### C BC #### [facility] [address] [place] [address] Dr. Rommel Ramirez Hemoglobin (Bld) [Mass/Vol] 13.9 g/dL Normal 12.0-16.0 [facility] Comment on above: Performed By: #### C BC #### [facility] [address] [place] [address] Dr. Rommel Ramirez IG # 0.01 10e3/ul Normal 0.00-0.03 [facility] Comment on above: Performed By: #### C BC #### [facility] [address] [place] [address] Dr. Rommel Ramirez IG % 0.1 % Normal 0.0-0.5 [facility] Comment on above: Performed By: #### C BC #### [facility] [address] [place] [address] Dr. Rommel Ramirez LYMPH # 2.2 103/ul Normal 1.2-3.8 [facility] Comment on above: Performed By: #### C BC #### [facility] [address] [place] [address] Dr. Rommel Ramirez Lymphocytes/100 WBC (Bld) 32.4 % Normal 20.5-60.0 [facility] Comment on above: Performed By: #### C BC #### [facility] [address] [place] [address] Dr. Rommel Ramirez MANUAL DIFF REQ NO Normal [facility] Comment on above: Performed By: #### C BC #### [facility] [address] [place] [address] Dr. Rommel Ramirez MCH (RBC) [Entitic mass] 31.3 pg Normal 26.7-34.0 [facility] Comment on above: Performed By: #### C BC #### [facility] [address] [place] [address] [address] Rommel Ramirez MCHC (RBC) [Mass/Vol] 34.7 g/dL Normal 29.9-35.2 [facility] Comment on above: Performed By: #### C BC #### [facility] [address] [place] [address] [address] Rommel Ramirez MCV (RBC) [Entitic vol] 90.3 fL Normal 81.0-99.0 [facility] Comment on above: Performed By: #### C BC #### [facility] [address] [place] [address] [address] Rommel Ramirez MONO # 0.5 103/ul Normal 0.3-0.8 [facility] Comment on above: Performed By: #### C BC #### [facility] [address] [place] [address] Dr. Rommel Ramirez Monocytes/100 WBC (Bld) 7.2 % Normal 1.7-12.0 [facility] Comment on above: Performed By: #### C BC #### [facility] [address] [place] [address] [address] Rommel Ramirez NEUT # 3.9 103/ul Normal 1.4-6.5 [facility] Comment on above: Performed By: #### C BC #### [facility] [address] [place] [address] Dr. Rommel Ramirez Neutrophils/100 WBC (Bld) 59.1 % Normal 43.0-75.0 [facility] Comment on above: Performed By: #### C BC #### [facility] [address] [place] [address] [address] Rommel Ramirez Platelet mean volume (Bld) [Entitic vol] 9.4 fL Critically low 9.5-13.5 [facility] Comment on above: Performed By: #### C BC #### [facility] [address] [place] [address] [address] Rommel Ramirez PLT 349 103/ul Normal 150-450 [facility] Comment on above: Performed By: #### C BC #### [facility] [address] [place] [address] Dr. Rommel Ramirez RBC 4.44 106/ul Normal 4.20-5.40 [facility] Comment on above: Performed By: #### C BC #### [facility] [address] [place] [address] Dr. Rommel Ramirez WBC 6.7 103/ul Normal 4.0-11.0 [facility] Comment on above: Performed By: #### C BC #### [facility] [address] [place] [address] Dr. Rommel Ramirez FREE T3on 10-09-2022 FREE T3 2.78 pg/mlL Normal 2.18-3.98 [facility] Comment on above: Performed By: #### C MP, FT3, TSH #### [facility] [address] [place] [address] Dr. Rommel Ramirez FREE T4on 10-09-2022 Free T4 [Mass/Vol] 0.86 ng/dL Normal 0.76-1.46 [facility] Comment on above: Performed By: #### F T4 #### [facility] [address] [place] [address] Dr. Rommel Ramirez PROF 14(COMP METB)on 022 Albumin [Mass/Vol] 3.9 g/dL Normal 3.4-5.0 [facility] Comment on above: Performed By: #### C MP, FT3, TSH #### [facility] [address] [place] [address] Dr. Rommel Ramirez Albumin/Globulin [Mass ratio] 1.3 {ratio} Normal [facility] Comment on above: Performed By: #### C MP, FT3, TSH #### [facility] [address] [place] [address] Dr. Rommel Ramirez ALP [Catalytic activity/Vol] 59 U/L Normal 46-116 [facility] Comment on above: Performed By: #### C MP, FT3, TSH #### [facility] [address] [place] [address] Dr. Rommel Ramirez ALT [Catalytic activity/Vol] 24 U/L Normal 14-59 [facility] Comment on above: Performed By: #### C MP, FT3, TSH #### [facility] [address] [place] [address] [address] Rommel Ramirez Anion gap [Moles/Vol] 17.2 mmol/L Normal [facility] Comment on above: Performed By: #### C MP, FT3, TSH #### [facility] [address] [place] [address] [address] Rommel Ramirez AST [Catalytic activity/Vol] 22 U/L Normal 15-37 [facility] Comment on above: Performed By: #### C MP, FT3, TSH #### [facility] [address] [place] [address] [address] Rommel Ramirez Bilirubin [Mass/Vol] 0.4 mg/dL Normal 0.2-1.0 [facility] Comment on above: Performed By: #### C MP, FT3, TSH #### [facility] [address] [place] [address] Dr. Rommel Ramirez Calcium [Mass/Vol] 9.0 mg/dL Normal 8.5-10.1 [facility] Comment on above: Performed By: #### C MP, FT3, TSH #### [facility] [address] [place] [address] Dr. Rommel Ramirez Chloride [Moles/Vol] 106 mmol/L Normal 98-107 [facility] Comment on above: Performed By: #### C MP, FT3, TSH #### [facility] [address] [place] [address] Dr. Rommel Ramirez CO2 [Moles/Vol] 23.4 mmol/L Normal 21.0-32.[address] [facility] Comment on above: Performed By: #### C MP, FT3, TSH #### [facility] [address] [place] [address] Dr. Rommel Ramirez Creatinine [Mass/Vol] 0.92 mg/dL Normal 0.55-1.02 [facility] Comment on above: Performed By: #### C MP, FT3, TSH #### [facility] [address] [address] [address] Rommel Ramirez EGFR-AF MARTINIQUAIS >60 Normal >=60 [facility] Comment on above: Performed By: #### C MP, FT3, TSH #### [facility] [address] [place] [address] [address] Rommel Ramirez EGFR-NON AF MARTINIQUAIS >60 Normal >=60 [facility] Comment on above: Performed By: #### C MP, FT3, TSH #### [facility] [address] [place] [address] [address] Rommel Ramirez Globulin (S) [Mass/Vol] 3.0 g/dL Normal [facility] Comment on above: Performed By: #### C MP, FT3, TSH #### [facility] [address] [address] [address] Rommel Ramirez Glucose [Mass/Vol] 115 mg/dL Critically high 74-106 [facility] Comment on above: Performed By: #### C MP, FT3, TSH #### [facility] [address] [address] [address] Rommel Ramirez Potassium [Moles/Vol] 3.6 mmol/L Normal 3.5-5.1 [facility] Comment on above: Performed By: #### C MP, FT3, TSH #### [facility] [address] [place] [address] Dr. Rommel Ramirez Protein [Mass/Vol] 6.9 g/dL Normal 6.4-8.2 [facility] Comment on above: Performed By: #### C MP, FT3, TSH #### [facility] [address] [address] [address] Rommel Ramirez Sodium [Moles/Vol] 143 mmol/L Normal 136-145 [facility] Comment on above: Performed By: #### C MP, FT3, TSH #### [facility] [address] [address] [address] Rommel Ramirez Urea nitrogen [Mass/Vol] 19.0 mg/dL Critically high 7.0-18.0 [facility] Comment on above: Performed By: #### C MP, FT3, TSH #### [facility] [address] [address] [address] Rommel Ramirez Urea nitrogen/Creatinine [Mass ratio] 20.7 mg/mg Normal [facility] Comment on above: Performed By: #### C MP, FT3, TSH #### [facility] [address] [address] [address] Rommel Ramirez TSHon 10-09-2022 TSH 2.672 uIU/mL Normal 0.358-3.740 [facility] Comment on above: Performed By: #### C MP, FT3, TSH #### [facility] [address] [address] [address] Rommel Ramirez PAP ACOG PANEL 2: 30 to 65on 08-22-2022 . . Normal [facility] Comment on above: Result Comment: Perf ormed at: WB Performed By: #### [id number] #### [facility] [address] [place] [address] Dr. Rommel Ramirez Age Gdln ACOG Testing 30-65 Normal [facility] Comment on above: Performed By: #### [id number] #### [facility] [address] [address] [address] Rommel Ramirez DIAGNOSIS: Comment Normal [facility] Comment on above: Result Comment: NEGA TIVE FOR INTRAEPITHELIAL LESION OR MALIGNANCY. SHIFT IN N[place] SUGGESTIVE OF BACTERIAL VAGINOSIS. Performed at: WB Performed By: #### [id number] #### [facility] [address] [place] [address] Dr. Rommel Ramirez HPV Aptima Negative Normal Negative [facility] Comment on above: Result Comment: This nucleic acid amplification test detects fourteen high-risk HPV types (16,18,31,33,35,39,45,51,52,56,58,59,66,68) without differentiation. Performed at: =G Performed By: #### [id number] #### [facility] [address] [place] [address] Dr. Rommel Ramirez Methodology: Comment Normal [facility] Comment on above: Result Comment: This liquid based ThinPrep(R) pap test was screened with the use of an image guided system. Performed at: WB Performed By: #### [id number] #### [facility] [address] [place] [address] Dr. Rommel Ramirez Note: Comment Normal [facility] Comment on above: Result Comment: The Pap smear is a screening test designed to aid in the detection of premalignant and malignant conditions of the uterine cervix. It is not a diagnostic procedure and should not be used as the sole means of detecting cervical cancer. Both false-positive and false-negative reports do occur. . Performed at: WB Performed By: #### [id number] #### [facility] [address] [address] [address] Rommel Ramirez Performed by: Comment Normal [facility] Comment on above: Result Comment: Fatou Dillon, Collar Separator (ASCP) Performed at: WB Performed By: #### [id number] #### [facility] [address] [place] [address] Dr. Rommel Ramirez Specimen adequacy: Comment Normal [facility] Comment on above: Result Comment: Sati sfactory for evaluation. Performed at: WB Performed By: #### [id number] #### [facility] [address] [place] [address] Dr. Rommel Ramirez Vital Signs Date Time Vital Sign Value Performing Clinician Pranavi magdalene 08-26-2024 10:29040 Body mass index (BMI) [Ratio] 19.14 kg/m2 Tynt Work Phone: [facility] 08-26-2024 10:29040 Body weight 52.16 kg [employer] Work Phone: [facility] 08-26-2024 10:29-040 Diastolic blood pressure 84 mm[Hg] Tynt Work Phone: [facility] 08-26-2024 10:29-040 Systolic blood pressure 136 mm[Hg] Tynt Work Phone: [facility] 04-04-2024 09:45-0400 Diastolic blood pressure 90 mm[Hg] Aubrey Barrazanus [facility] 04-04-2024 09:45-0400 Heart rate 94 /min Aubrey Barrazanus [facility] 04-04-2024 09:45-0400 SaO2% (BldA) [Mass fraction] 99 % Aubrey Barrazan [facility] 04-04-2024 09:45-0400 Systolic blood pressure 138 mm[Hg] Aubrey [email or web address] [facility] Encounters Encounter Date Encounter Type Care Provider Facility Start: 08-26-2024 End: 08-26-2024 Bamboo flowsheet Meek Clementina DO Work Phone: [facility] Start: 08-26-2024 End: 09-02-2024 Bamboo flowsheet Meek Clementina DO Work Phone: [facility] Start: 08-26-2024 End: 09-02-2024 Clinisync Result Encounter Meek Clementina DO Work Phone: [facility] External Department Unsolicited Start: 08-26-2024 End: 08-26-2024 Patient encounter procedure Meek Clementina DO Work Phone: [facility] Healthcare Work Phone: Start: 08-26-2024 End: 08-26-2024 Periodic preventive med est patient 40-64yrs Meek Clementina DO Work Phone: [facility] Comment on above: Well woman exam with routine gynecological exam; Breast cancer screening by mammogram; Postmenopausal state; Vaginal dryness, menopausal Start: 08-26-2024 End: 08-26-2024 ambulatory MEEK CLEMENTINA Not Available Start: 08-11-2024 End: 08-11-2024 ambulatory Grace Momin Facility:[facility] Start: 07-07-2024 End: 07-07-2024 ambulatory [facility] Start: 06-23-2024 End: 06-23-2024 ambulatory AKILA SHARMA Not Available Start: 06-05-2024 End: 06-05-2024 ambulatory [facility] Start: 05-05-2024 End: 05-05-2024 ambulatory Grace Momin Facility:[facility] Start: 04-04-2024 End: 04-10-2024 Pre-admission assessment Aubrey Glass [facility] Start: 04-04-2024 End: 04-04-2024 ambulatory Grace Momin Facility[facility] Start: 04-04-2024 End: 04-04-2024 Patient encounter procedure Aubrey Zuleyma [employer] [facility] Start: 04-03-2024 End: 04-03-2024 ambulatory [facility]omin [facility] Start: 03-27-2024 End: 03-27-2024 ambulatory Grace Momin Facility:[facility] Start: 03-27-2024 End: 03-27-2024 Patient encounter procedure Grace Momin [facility] Start: 03-25-2024 End: 03-25-2024 ambulatory Grace Momin Facility:[facility] [place] Start: 02-25-2024 End: 02-25-2024 ambulatory Grace Momin [facility] Start: 01-14-2024 End: 01-14-2024 ambulatory Grace Momin [facility] Start: 01-01-2024 ambulatory Grace Momin Facility:[facility] [...] 08-21-2026 Screening for malignant neoplasm of cervix [facility] Start: 09-03-2025 End: 09-03-2025 Patient encounter procedure 09/03/2025 11:00 AM EDT Office Visit [facility] [address] [place] [address] Meek Mcrae, DO [address] [place] [address] [facility] Start: 09-12-2024 Screening for malignant neoplasm of breast Mammogram [facility] Start: 08-26-2024 End: 08-26-2025 DXA Skeletal system Views for bone density DEXA bone density Imaging Routine Postmenopausal state Expected: 08/26/2024 (Approximate), Expires: 08/26/2025 [facility] Comment on above: Expected: 08/26/2024 (Approximate), Expires: 08/26/2025 Start: 08-26-2024 End: 10-26-2025 MG Breast - bilateral Screening Bilateral screening mammogram Imaging Routine Breast cancer screening by mammogram Expected: 08/26/2024, Expires: 10/26/2025 [facility] Work Phone: Comment on above: Expected: 08/26/2024 , Expires: 10/26/2025 Start: 08-26-2024 End: 08-26-2024 Patient encounter procedure 08/26/2024 10:00 AM EDT Office Visit [facility] [address] [place] [address] Meek Mcrae, DO [address] [place] [address] Arrived [facility] Comment on above: Arrived Start: 07-13-2024 Influenza vaccination Influenza Vacc ine (#1) [facility] Start: 1998 Screening for malignant neoplasm of cervix HPV/Cotest [facility] Start: 1968 Screening for malignant neoplasm of colon [facility] THIN PREP TIS PAP AN D HR HPV DNA THIN PREP TIS PAP AND HR HPV DNA Pathology and Cytology Routine Well woman exam with routine gynecological exam Ordered: 08/26/2024 [facility] Comment on above: Ordered: 08/26/2024 Immunizations Immunization Date Immunization Notes Care Provider Fa cility 08-12-2023 influenza virus vaccine, unspecified formulation Grace Momin [facility] 01-20-2023 zoster vaccine recombinant Graceramos Momin [facility] 10-04-2022 zoster vaccine recombinant Graceramos Momin [facility] 09-04-2022 pneumococcal 20-fausto nt conjugate vaccine Grace Momin [facility] 08-28-2022 influenza virus vaccine, unspecified formulation Grace Momin [facility] 07-31-2022 SARS-CoV-2 (COVID-19 ) [id number] [facility] 03-01-2022 SARS-CoV-2 mRNA (fhzsfgicgnx-yboc-temgz se) vaccine Grace Momin [facility] 10-30-2021 SARS-CoV-2 (COVID-19 ) mRNA BNT-162b2 vax Grace Momin [facility] 08-22-2021 influenza virus vaccine, unspecified formulation Grace Momin [facility] 02-08-2021 SARS-CoV-2 (COVID-19 ) mRNA BNT-162b2 vax Grace Momin [facility] 01-18-2021 SARS-CoV-2 (COVID-19 ) mRNA BNT-162b2 vax Grace Momin [facility] 08-23-2020 influenza virus vaccine, unspecified formulation Grace Momin [facility] 01-10-2020 tetanus toxoid, redu rajan diphtheria toxoid, and acellular pertussis vaccine, adsorbed Grace Momin [facility] 12-05-2019 influenza virus vaccine, unspecified formulation Grace Momin [facility] 08-05-2019 influenza virus vaccine, unspecified formulation Grace Momin [facility] 08-12-2018 influenza virus vaccine, unspecified formulation Grace Momin [facility] 07-30-2018 influenza virus vaccine, unspecified formulation Grace Momin [facility] 07-30-2018 tetanus toxoid, redu rajan diphtheria toxoid, and acellular pertussis vaccine, adsorbed Grace Momin [facility] 08-09-2017 influenza virus vaccine, unspecified formulation Grace Momin [facility] 09-01-2016 influenza virus vaccine, unspecified formulation Grace Momin [facility] 09-28-2015 influenza virus vaccine, unspecified formulation Grace Momin [facility] 07-27-2014 influenza virus vaccine, unspecified formulation Grace Momin [facility] Payers Date Payer Category Payer Medicaid [facility] [id number] 2022 Medicaid [id number] 1970 Unknown [id number] 1968 Unknown [id number] 1968 Unknown [id number] 1968 Unknown [id number] 1968 Unknown [id number] 1968 Unknown [id number] 1968 Unknown [id number] [id number] 1968 Unknown [id number] 2.16.840.1.482713.3.579.2.727 1968 Unknown [id number] [id number] 1968 Unknown [id number] [id number] 1968 Unknown [id number] [id number] 1968 Unknown [id number] [id number] 1968 Unknown [id number] 2.16.840.1.683601.3.579.2.9 1968 Unknown [id number] 1959 Unknown [id number] Social History Date Type Detail Facility Start: 02-25-2024 End: 04-04-2024 Tobacco smoking status Light tobacco smoker (finding) [facility] [place] Start: 06-23-2024 Sex Assigned At Female F [facility] Start: 06-23-2024 Tobacco smoking stat us CTIS Smokes tobacco daily [facility] History of tobacco use Cigarette Smoker [facility] Start: 06-23-2024 End: 08-26-2024 Alcoholic beverage intake Lifetime non-drinker (finding) [facility] Start: 06-23-2024 History of Social function [facility] Start: 1970 Sex assigned at Not on file [facility] Functional Status Date Assessment Result Facility 04-04-2024 Functional Status N/A [facility] History of Present illness Narrative 08-26-2024 Tegan [...] nursing note reviewed. 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 Vitals: Estimated body mass index is [...] Anuradha Boateng PA-C documented in this encounter [facility] Clinical Note 07-07-2024 Note Date & Type [...] numbers. This can be done either in [place] ([place] or metric measurements. Note that charts and online BMI calculators are available to help you find your BMI quickly and easily without having to do these calculations yourself. To calculate your BMI in [place] ([place] measurements: 1. Measure your weight in [...] for Disease Control and Prevention: www.cdc.gov ? [place] Heart Association: www.heart.org ? National Heart, Lung, and Blood [place]: www.nhlbi.nih.gov Summary ? Body mass index (BMI) is a number that is calculated from a person's weight and height. ? BMI may help estimate how much of a person's weight is composed of fat. BMI can help identify those who may be at higher risk for certain medical problems. ? BMI can be measured using [place] measurements or metric measurements. ? BMI charts are used to identify whether you are underweight, normal weight, overweight, or obese. This information is not intended to replace advice given to you by your health care provider. Make sure you discuss any questions you have with your health care provider. Document Revised: 07/21/2020 Document Reviewed: 05/28/2020 [employer] Patient Education ? 2022 [employer] [facility] Clinical Note 06-05-2024 Note Date & [...] wine (148 mL), (more content not included)... [facility] Evaluation + Plan note Note Date & Type Note Facility Evaluation + Plan note No data available for this section [facility] Evaluation + Plan note LaboratoryRadiology Note Date & Type Note Facility Evaluation + Plan note Future Appointments Appointment Date:04/09/2024 10:15:00 AM Scheduled Provider: Location:[facility] Appointment Type:CV Stress ([facility]) Appointment Date:05/09/2024 09:00:00 AM Scheduled Provider:Aubrey Glass MD [facility] [place] Appointment Type:Cardiology Follow Up ([facility]) Appointment Date:06/05/2024 09:30:00 AM Scheduled Provider:Grace Momin MD Location:[facility] Appointment Type: Open Future Scheduled TestsCBC w/ Auto Diff 04/03/24Comprehensive Metabolic Panel 04/03/24Lipid Panel 04/03/24ECG Stress Exercise 04/09/24 [facility] Evaluation + Plan note Laboratory Note Date & Type Note Facility Evaluation + Plan note Future Appointments Appointment Date:05/09/2024 09:00:00 AM Scheduled Provider:[facility] [place] Appointment Type:Cardiology Follow Up ([facility]) Appointment Date:06/05/2024 09:30:00 AM Scheduled Provider:Grace Momin MD Location:[facility] Appointment Type: Open Future Scheduled TestsCBC w/ Auto Diff 04/03/24Comprehensive Metabolic Panel 04/03/24Lipid Panel 04/03/24 [facility] Evaluation note Note Date & Type Note Facility Evaluation note Diagnosis Well woman exam with routine gynecological exam Routine gynecological examination Breast cancer screening by mammogram Postmenopausal state Asymptomatic postmenopausal status (age-related) (natural) Vaginal dryness, menopausal documented in this encounter [facility] Discharge instructions Note Date & Type Note Facility Hospital Discharge instructions No data available for this section [facility] Progress note Note Date & Type Note Facility Progress note No data available for this section [facility] Summary Purpose Family History No [...] section and content) DATE CREATED AUTHOR 10/14/2022 [facility] DATE CREATED AUTHOR AUTHOR'S ORGANIZ ATION 08/13/2024 [facility] DATE CREATED AUTHOR AUTHOR'S ORGANIZ ATION 08/28/2024 [facility] EPIC Patient Care team informatio n (unrecognized section and content) Economic Research Assistant Relationship Specialty Start Date End Date Grace Momin MD [address] [place] [address] PCP - General Family Medicine 08/26/24 Economic Research Assistant Relationship Specialty Start Date End Date Grace Momin MD [address] [place] [address] PCP - General Family Medicine 08/26/24 Economic Research Assistant Relationship Specialty Start Date End Date Grace Momin MD [address] [place] [address] PCP - General Family Medicine 08/26/24 Reason [...] BE BASED ON THE PRIMARY CLINICAL RECORDS. [employer] provides no warranty or guarantee of the accuracy or completeness of information in this document.
== END 2025-07-16 14:01 | disposition home or self-care (01) ==
LOC: US 14:00
PROVIDERS: Visit Provider Nurse Practitioner Primary Care
DX: N17.8 Other acute kidney failure (principal)
CPT/HCPCS: 76775

== ENCOUNTER 2025-08-12 10:04 | Outpatient (OUT) | payer MEDICAID, SELFPAY ==
--- OUTSIDE RECORDS SUMMARY | 2024-08-26 09:49 | XMS_ITS ---
Author Name Auto Generated Organization [facility] Care Team Providers Care Compensation Adjuster Name Role Phone KEYSHAWN MEEK Attending Unavailable PROBLEMS No Problem Records Found PROCEDURES No Procedure Records Found RESULTS No Result Records Found ALLERGIES No Allergies Records Found ENCOUNTERS ADMIT/DISCHARGE ACCOUNT NUMBER ADMITTING ENCOUNTER CLASS LOCATION SOURCE 08/26/2024/ 4 [id number] Ambulatory Building:[facility] [employer] ENCOUNTER GUARANTOR PAYER SUBSCRIBER SOURCE 08/26/2024 MESFIN NAVINMDOB: [id number] [address]Zwp: (HP) (WP) [facility] Number: [id number] ve Date:2022-12-13 MEFSIN NAVINMDOB: [id number] [place] [address] [facility]IC
[2025-08-12 10:28] LABS: Hematocrit 30.9 % (36.0-48.0); Hemoglobin 11.0 g/dL (12.0-16.0); Immature Granulocytes Abs Auto 0.00 10^3/uL (0.00-0.03); Immature Granulocytes Pct Auto 0.0 % (0.0-0.5); Lymphocytes Absolute Auto 1.4 10^3/uL (1.2-3.8); Mean Corpuscular HGB Conc 35.6 g/dL (29.9-35.2); Mean Corpuscular Hemoglobin 31.5 pg (26.7-34.0); Mean Corpuscular Volume 88.5 fL (81.0-99.0); Platelet Count 237 10^3/uL (150-450); Red Blood Count 3.49 10^6/uL (4.20-5.40); White Blood Count 3.6 10^3/uL (4.0-11.0)
[2025-08-12 11:36] LABS: Alanine Aminotransferase 18 U/L (14-59); Albumin Globulin Ratio 1.3; Albumin Level 3.8 g/dL (3.4-5.0); Alkaline Phosphatase 50 U/L (46-116); Anion Gap 12.9; Blood Urea Nitrogen 16.0 mg/dL (7.0-18.0); Calcium 9.0 mg/dL (8.5-10.1); Carbon Dioxide 27.0 mmol/L (21.0-32.0); Chloride 106 mmol/L (98-107); Cholesterol 156 mg/dL (<=200); Estimated GFR (African America 49 (>=60 mL/min/1.73m^2); Estimated GFR (Non-African Ame 40 (>=60 mL/min/1.73m^2); Globulin 2.9 g/dL; Glucose 85 mg/dL (74-106); HDL Cholesterol 66 mg/dL (40-60); Potassium 3.9 mmol/L (3.5-5.1); Sodium 142 mmol/L (136-145); TSH W/ REFLEX FT4 2.845 uIU/mL (0.358-3.740); Total Protein 6.7 g/dL (6.4-8.2); Triglycerides 54 mg/dL (<=150); VLDL CHOLESTEROL 10.8 mg/dL
[2025-08-12 12:07] LABS: Aspartate Amino Transferase 22 U/L (15-37)
[2025-08-12 13:37] LABS: Iron 107.0 ug/dL (50.0-170.0); Percent Iron Saturation 54.0 %; Total Iron Binding Capacity 198.0 ug/dL (250.0-450.0)
[2025-08-12 13:51] LABS: Ferritin 87.0 ng/mL (8.0-252.0)
== END 2025-08-12 10:05 | disposition home or self-care (01) ==
LOC: LAB 10:06
PROVIDERS: PCP Nurse Practitioner Family; Visit Provider Nurse Practitioner Family
DX: R42 Dizziness and giddiness (principal); I10 Essential (primary) hypertension
CPT/HCPCS: 36415; 80053; 80061; 82728; 83540; 83550; 84443; 85025

== ENCOUNTER 2025-09-14 19:52 | Outpatient (REF) | payer MEDICAID, SELFPAY ==
--- OUTSIDE RECORDS SUMMARY | 2025-09-09 04:51 | XMS_ITS | Continuity of Care Document ---
Author Organization [facility] Address [address] [place] [address] Phone Care Team Providers Care Insurance Licensing Supervisor Name Role Phone Cyndi Addison APRN Primary Care Provider Cyndi Addison APRN Attending Provider Care Teams Patient Care Team Team Status: Active Member Role/Relationship Status Dates Cyndi Addison APRN HIGH PRESSURE BOILER OPERATOR-C Primary Care Provider Active Visit Care Team Team Status: Inactive Member Role/Relationship Status Dates Cyndi Addison APRN HIGH PRESSURE BOILER OPERATOR-C Primary Care Provider Active Start: August 12, 2025 End: August 12, 2025Cyndi Addison APRN HIGH PRESSURE BOILER OPERATOR-CAttending ProviderActive Start: August 12, 2025 End: August 12, 2025 Patient Care Team Team Status: Inactive Member Role/Relationship Status Dates Cyndi Addison APRN HIGH PRESSURE BOILER OPERATOR-C Primary Care Provider Active Start: August End: September 09, 2025Cyndi Addison APRN HIGH PRESSURE BOILER OPERATOR-CAttending ProviderActive Start: September 09, 2025 End: September 09, 2025 Chief Complaint and Reason for Visit Chief Complaint Admit Date Est Care/Discuss BW/Dizziness August 8:57am 4 Week F/U September 09, 2025 8 :57am Reason for Visit Admit Date Anxiety August 12, 2025 8: 57am Depression August 12, 2025 8: 57am Dizziness August 12, 2025 8: 57am High blood pressure August 12, 2025 8: 57am Screening for colon cancer August 12, 2025 8:57am Stage 3 chronic kidney disease August 122024 8:57am Anxiety September 09, 2025 8 :57am Depression September 09, 2025 8 :57am Dizziness September 09, 2025 8 :57am High blood pressure September 09, 2025 8 :57am Stage 3 chronic kidney disease August 132024 8:57am Wellness examination September 09, 2025 8:57am Allergies, Adverse Reactions, Alerts Allergen Type Severity Reaction Last Updated Verified Status No Known Allergies Allergy Unknown September 09, 2025 9:06amYesActive Social History Smoking Status Status Start Date End Date Date of Observa tion Smokes tobacco daily (finding) August 12, 2025 9:20am Observation Status Observation Response Date of Response Legal Sex Female (finding) Sex Assigned At BirthFemaleSept1969 Family History Relationship Condition Age at Onset Recorded Date/T kushal brother Diabetes mellitus Unknown Problems Active Problems Problem Diagnosis/Recorded Date Onset Date Stat us Screening for colon cancer August 12, 2025 1:32pm Un known Active Dizziness August 12, 2025 9:30am Unknown Act soham Sleep disturbances August 14, 2025 10:52am Unknown Active Stage 3 chronic kidney disease August 13, 2025 10:12 am Unknown Active Anxiety August 12, 2025 9:17am Unknown Act soham Depression August 12, 2025 9:17am Unknown Act soham Wellness examination September 09, 2025 9:40am Unknown Active High blood pressure August 12, 2025 9:17am Unknown Active Medications Medication Status Dose Units Route Directions Qty Days Refills S tart Date Stop Date End Date Reason(s) Instructions Adherence Trazodone 150 mg tablet Active 150 MG PO Daily at bedtim e as needed for sleep 90 90 1 August 14 10:51am Disturbance in sleep behavior Sleep disorder, unspecifiedComplies with drug therapyLosartan- Hydrochlorothiazide 100-25 mg sqkunoEizdlvzknmbk5SXCRPYlddqKpumejm 1st, 2025 12:00amOctober 2024 9:16amTrazodone 150 mg sgvskpOiwuubgnwtuy751QZHFWjipy at bedtime as neededOct2024 12:00amOctober 2024 10:52amBuspirone 10 mg uevmkjCltrcbihzdpf27HOEZZisfx times dailyOct2024 12:00amOctober 2024 9:37amHydrochlorothiazide 25 mg udctsxIcaxwphlperk45TPRRIrbtoFiibtlz 2024 12:00amOctober 2024 9:29amMultivitamin With Minerals (Multiple Vitamin-Minerals) azgzfxJmdbny1STJEIJdupvIrctpwq 2024 12:00amComplies with drug therapyLosartan 100 mg wvbmrhYjznuqmbssyc741IEWTMomzyBfwqola 2024 12:00amOctober 2024 9:29amEscitalopram Oxalate 20 mg chsdozZyvcckaqettp31XU PODailyOctober 2024 12:00amOctober 2024 9:37amHydrochlorothiazide 25 mg hviqmpEdmzlkeuglmn78TMGPCnfekKmcaapi 2024 12:00amOctober 2024 9:37amLosartan 100 mg mkdtvqJztaxbbhcpeg860LCLQMcpelOzjopti 2024 12:00am September 09, 2025 9:37amHydrochlorothiazide 12.5 mg eklwjbUelzcq51.9KDQHMecic96 901Oct[facility] 2024 9:34amHypertension Essential (primary) hypertensionComplies with drug therapyEscitalopram Oxalate 20 mg wxvofvZnxrhg53FINASykdh20448Qhecvnl 2024 9:34amDepression Anxiety Depression, unspecified Anxiety disorder, unspecifiedComplies with drug therapyBuspirone 10 mg tablet Psjxwq85DZXIKmuvb times cwjxj728131Jmdgbhm 2024 9:34amAnxiety Anxiety disorder, unspecifiedComplies with drug therapyLosartan 100 mg tablet Skkake549LMUZUdszu74028Nztdmqk 2024 9:36amHypertension Essential (primary) hypertensionComplies with drug therapyRopinirole 0.25 mg tabletActive0.25MGPODaily at wkweqpu45437Acnanqf 2024 12:00amadminister 1- 3 hours before bedtimeComplies with drug therapyBupropion Hcl (Wellbutrin Sr) 150 mg tablet sustained-release 12 yjFhzhzc428VYPHTwlmi22868Telwbtw 2024 12:00amDepression Depression, unspecifiedComplies with drug therapy Relevant Diagnostic Tests and/or Laboratory Data Laboratory Results Test Collection Date/Time Result Date/Time Result Interpretation Reference Range Result Comment Performing Site Ferritin August 12, 2025 10:20am August 12, 2025 10: 20am 87.0 ng/mL 8.0-252.0Iron SaturationAugust 12, 2025 10:20amOctober 2024 10:20am54.0 % Thyroid Stimulating Hormone 3rd GenOct2024 10:20amOct2024 10:20am2.845 u[iU]/mL0.358-3.740Cholesterol/HDL RatioOct2024 10:20am August 12, 2025 10:20am2.43.3 - 4.4 LOW RISK4.4 - 7.1 AVERAGE RISK7.1 - 11.0 MODERATE RISK>11.0 HIGH RISKAnion GapAugust 12, 2025 10:20amOct2024 10:20am12.9Basophils # (Auto)August 12, 2025 10:20amOct2024 10:20am 0.0 10 3/uL0.0-0.1Iron LevelAugust 12, 2025 10:20amOct2024 10:20am 107.0 ug/dL50.0-170.0Cholesterol LevelOct2024 10:20amOct2024 10:18gu475 mg/dL<=200Albumin/Globulin RatioOct2024 10:20amOct2024 10:20am1.3Basophils (%) (Auto)August 12, 2025 10:20amOct2024 10:20am0.3 %0.2-2.0Total Iron Binding CapacityOct2024 10:20am August 12, 2025 10:56xd651.0 ug/dLBelow low jsztri947.0-450.0HDL Cholesterol August 12, 2025 10:20amOct2024 10:20am66 mg/dLAbove high -47 > or =60 mg/dl - LOW CARDIOVASCULAR RISK<40 mg/dl - HIGH CARDIOVASCULAR RISK AlbuminOctober 2024 10:20amOct2024 10:20am3.8 g/dL3.4-5.0 Eosinophils # (Auto)August 12, 2025 10:20amOctober 2024 10:20am0.0 10 3/uL0.0-0.7LDL Cholesterol, CalculatedOct2024 10:20amOctober 2024 10:20am80.0 mg/dL<100 mg/dl EWVHMRM520-625 mg/dl NEAR OR ABOVE SIWUFRF735-350 mg/dl BORDERLINE LLLU522-397 mg/dl HIGH>190 mg/dl VERY HIGHAlkaline Phosphatase August 12, 2025 10:20amOctober 2024 10:20am50 U/Y93-235Catxysrrtpm (%) (Auto)August 12, 2025 10:20amOctober 2024 10:20am0.8 %Below low normal 0.9-7.0Triglycerides LevelOctober 2024 10:20amOctober 2024 10:20am54 mg/dL<=150Alanine Aminotransferase (ALT/SGPT)August 12, 2025 10:20amOct2024 10:20am18 U/I91-70VyubjarzolRtdtzua 2024 10:20amOctober 2024 10:20am30.9 %Below low ittbzf20.0-48.0VLDL CholesterolOct2024 10:20am August 12, 2025 10:20am10.8 mg/dLAspartate Amino Transf (AST/SGOT)August 12, 2025 10:20amOct2024 10:20am22 U/F89-12OorehhhjlmQkhuqll 1st, 2025 10:20amOctober 2024 10:20am11.0 g/dLBelow low alqvta19.0-16.0BUN/Creatinine RatioOct2024 10:20amOctober 2024 10:20am11.8Immature Granulocyte # (Auto)August 12, 2025 10:20amOctober 2024 10:20am0.00 10 3/uL0.00-0.03 Blood Urea NitrogenOct2024 10:20amOctober 2024 10:20am16.0 mg/dL 7.0-18.0Immature Granulocyte % (Auto)August 12, 2025 10:20amOctober 2024 10:20am0.0 %0.0-0.5Calcium LevelOctober 2024 10:20amOctober 2024 10:20am9.0 mg/dL8.5-10.1Lymphocytes # (Auto)August 12, 2025 10:20amOctober 2024 10:20am1.4 10 3/uL1.2-3.8Chloride LevelOct2024 10:20am August 12, 2025 10:32rz403 mmol/F64-979Iqtzbvopwiw (%) (Auto)August 12, 2025 10:20amOctober 2024 10:20am39.1 %20.5-60.0Carbon Dioxide LevelOct2024 10:20amOctober 2024 10:20am27.0 mmol/L21.0-32.0Mean Corpuscular HemoglobinOct2024 10:20amOctober 2024 10:20am31.5 pg26.7-34.0 CreatinineOctober 2024 10:20amOctober 2024 10:20am1.36 mg/dLAbove high normal0.55-1.02Mean Corpuscular Hemoglobin ConcentOct2024 10:20am August 12, 2025 10:20am35.6 g/dLAbove high .9-35.2Estimated GFR ()August 12, 2025 10:20amOctober 2024 10:69mo59Gfwhb low normal>=60 mL/min/1.73m 2Mean Corpuscular VolumeOctober 2024 10:20amOctober 2024 10:20am88.5 fL81.0-99.0Estimated GFR (Non- AmericanOct2024 10:20amOctober 2024 10:85sc43Dviic low normal>=60 mL/min/1.73m 2 Monocytes # (Auto)August 12, 2025 10:20amOctober 2024 10:20am0.3 10 3/uL 0.3-0.8GlobulinOct2024 10:20amOctober 2024 10:20am2.9 g/dL Monocytes (%) (Auto)August 12, 2025 10:20amOctober 2024 10:20am9.4 % 1.7-12.0Glucose LevelOctober 2024 10:20amOctober , 2024 10:20am85 mg/dL 74-106Mean Platelet VolumeOctober 2024 10:20amOctober 2024 10:20am9.5 fL9.5-13.5Potassium LevelOctober 2024 10:20amOctober 2024 10:20am3.9 mmol/L3.5-5.1Neutrophils # (Auto)August 12, 2025 10:20amOctober 2024 10:20am1.8 10 3/uL1.4-6.5Sodium LevelOctober 2024 10:20amOctober 2024 10:05jf558 mmol/W583-507Coekgwcaoty (%) (Auto)August 12, 2025 10:20amOctober 2024 10:20am50.4 %43.0-75.0Total BilirubinOctober 2024 10:20amOctober 2024 10:20am0.5 mg/dL0.2-1.0Platelet CountOctober 2024 10:20amOctober 2024 10:03xs917 10 3/vA246-513Nkrnm ProteinOctober 2024 10:20amOctober 2024 10:20am6.7 g/dL6.4-8.2Red Blood CountOctober 2024 10:20amOctober 2024 10:20am3.49 10 6/uLBelow low normal4.20-5.40Red Cell Distribution WidthOctober 2024 10:20amOctober 2024 10:20am12.1 %11.0-15.0Corrected White Blood CountOctober 2024 10:20amOctober 2024 10:20am3.6 10 3/uL Below low normal4.0-11.0 Vital Signs Vital Reading Result Reference Range Collection Date/Time Height 65.5 [in_i] August 12, 2025 9:34ycVzxdwi74.15 kgOctober 2024 9:06amBody Temperature 96.5 [degF]97.6-99.0Oct2024 9:06amHeart Rate66 /rwf98-530Sgmzlvb 1st, 2025 9:06amOxygen saturation by Pulse gqtlutoa516 %95-100Oct2024 9:06amBP Nctwhusc203 mm[Hg]100-140Oct2024 9:06amBP Bnmgitptb98 mm[Hg] 60-100Oct2024 9:06amBMI (Body Mass Index)20.6 kg/w5SdfvjetAugust 12, 2025 9:81ruDbosab17.5 [in_i]September 09, 2025 9:24zySruuuc53.32 kgOctober 2024 9:06amBody Sjqqzoutzzq82.3 [degF]97.6-99.0Oct[facility] 2024 9:06amBP Systolic 114 mm[Hg]100-140Oct2024 9:06amBP Dalohsjkg96 mm[Hg]60-100October 2024 9:06amBMI (Body Mass Index)20.7 kg/s9Kthupva 2024 9:06am Advance Directives Advance Directive Response Recorded Date/ Time Advance Directives No July 11:14am Insurance Providers Guarantor Zuleyma Dowling Address [address] [place] [id number] Info.Home Phone: Coverage Status Update:2025 Payer Group Member ID Coverage Type Subscriber Relationship to Subscriber Effective Date Expiration Date Tonio MARIO/NATASHA [id number] [place] , D Id: [id number] [address] [place] [id number] [facility] [id number] [place]am , D Id: [id number] [address] [place] [phone] Home Phone: Self Encounters Encounter Location(s) Arrival/Admit Date Discharge/Departure Date Discharge/Departure Disposition Provider(s) Departed Physician/ Provider Office Visit -[facility] August 12, 2025 8:57am August 12, 2025 9:50am Discharged to home care or self care (routine discharge) Cyndi Addison APRN CNP Departed Physician/ Provider Office Visit -[facility] September 09, 2025 8:57am September 09, 2025 9:50am Discharged to home care or self care (routine discharge) Cyndi Addison APRN CNP Recent Diagnosis Onset Date Admit Date Anxiety Unknown August 12 8:57am Depression Unknown August 12 8:57am Dizziness Unknown August 12 8:57am High blood pressure Unknown August 12, 2025 8:57am Screening for colon cancer Unknown 2024 8:57am Stage 3 chronic kidney disease Unknown O ctober 2024 8:57am Anxiety Unknown September 09 8:57am Depression Unknown September 09 8:57am Dizziness Unknown September 09 8:57am High blood pressure Unknown August 8:57am Stage 3 chronic kidney disease Unknown O ctober 2024 8:57am Wellness examination Unknown August 8:57am Assessments Diagnosis Onset Date Resolution Status Admit Date Anxiety acuteOctober 2024 8:57amDepressionacuteOctober 2024 8:57amDizziness acuteOctober 2024 8:57amHigh blood pressureacuteOctober 2024 8:57am Screening for colon canceracuteOctober 2024 8:57amStage 3 chronic kidney diseaseacuteOctober 2024 8:57amAnxietyacuteOctober 2024 8:57am DepressionacuteOctober 2024 8:57amDizzinessacuteOctober 2024 8:57am High blood pressureacuteOctober 2024 8:57amStage 3 chronic kidney disease acuteOctober 2024 8:57amWellness examinationacuteOctober 2024 8:57am Plan of Treatment Author Cyndi Addison [facility] 10:18amTo goal Stop taking the 2nd does of the HCTZ and Losartan. Discussed she should only be taking one or the other not both prescriptions. Will repeat labs. Follow-up in 4 weeks Prior to your visit today we reviewed your chart and outlined the testing and treatment needed for your care. We discussed the possible complications of high blood pressure, including increased risk for heart disease, stroke, and kidney disease. Our goal is to keep your blood pressure below 130/85 (an preferably < 120/80) and maintain a healthy weight with a BMI less than 26. We are working together to achieve these goals with the following plan; healthier diet, increased activity and exercise, understanding your medications, and your compliance. Discussed will stop 2nd dose of the Losartan/HCTZ Will obtain labs to check, thyroid, for anemia. Will call with results and further recommendations. Continue Lexapro, trazodone and BuSpar. Continue Lexapro, trazodone and BuSpar. Discussed with patient the colon cancer screening options including Cologuard and colonoscopy. Risks and benefits of each discussed. Patient opts for Cologuard screening. Will repeat labs. Will obtain [facility] Author Cyndi [facility] HospitalAuthoredOctober 2024 9:44amTo goal Stop taking the 2nd does of the HCTZ and Losartan. Discussed she should only be taking one or the other not both prescriptions. Will repeat labs. Follow-up in 4 weeks Prior to your visit today we reviewed your chart and outlined the testing and treatment needed for your care. We discussed the possible complications of high blood pressure, including increased risk for heart disease, stroke, and kidney disease. Our goal is to keep your blood pressure below 130/85 (an preferably < 120/80) and maintain a healthy weight with a BMI less than 26. We are working together to achieve these goals with the following plan; healthier diet, increased activity and exercise, understanding your medications, and your compliance. Continue Lexapro, trazodone and BuSpar. Patient is not suicidal or homicidal at this time. Discussed treatment options with patient today. It was decided in collaboration with the patient to continue above daily for management with depression/anxiety. Medication profile and possible SE reviewed with patient today. Patient to take medication as directed and prescribed. Do not skip/miss doses and do not stop abruptly. Patient is interested in counseling at this time. Warning s/s reviewed with patient today. Patient to go immediately to the ER should patient experience any of these. Patient verbalizes understanding and agrees to treatment plan. Continue Lexapro, trazodone and BuSpar. Has an appt with Nephrology in October Discussed will stop 2nd dose of the Losartan/HCTZ Will obtain labs to check, thyroid, for anemia. Will call with results and further recommendations. Future Tests Future scheduled test information is unavailable Pending Tests Test Name Ordered Date Scheduled Date Comprehensive Metabolic Panel August 12, 2025 9:29am Future Visits Future appointment information is unavailable Future Procedures Procedure Name Ordered Date Scheduled Date AMB Cologuard August 12, 2025 1:31pm Lipid PanelOct2024 9:29am Future Medications Future medication information is unavailable Patient Instructions Patient instructions are unavailable
--- OUTSIDE RECORDS SUMMARY | 2025-09-14 15:40 | XMS_ITS | Encounter Summary ---
Author Organization [facility] Address [address] [place] [address] Care Team Providers Care Insurance Auditor Name Role Phone Landon Tomlinson MD Primary Care Provider [phone] Reason for Visit * ReasonCommentsGynecologic Exam Encounter Details DateTypeDepartmentCare Team (Latest Contact Info)Metnbuawmzg89/03/2025 3:40 PM ESTOffice Visit [facility] [address] [address] Garth Mcrae DO [address] [place] [id number] Well woman exam with routine gynecological exam; Encounter for screening mammogram for malignant neoplasm of breast; Osteoporosis, post-menopausal Social History Tobacco UseTypesPacks/DayYears UsedDateSmoking Tobacco: Every DayCigarettes Alcohol UseStandard Drinks/WeekCommentsNever0 (1 standard drink = 0.6 oz pure alcohol)CommentsNoSex and Gender InformationValueDate RecordedSex Assigned at BirthNot on fileLegal OauAnrqxd86/15/2023 6:47 PM EDTGender Identity Not on fileSexual OrientationNot on filedocumented as of this encounter Last Filed Vital Signs Vital SignReadingTime TakenCommentsBlood Zzcajvzf899/6809/14/2025 3:54 PM EST Pulse--Temperature--Respiratory Rate--Oxygen Saturation--Inhaled Oxygen Concentration--Lvrnri76.6 kg (127 lb)09/14/2025 3:54 PM KYNVwkqpi387.1 cm (5' 5 )09/14/2025 3:54 PM ESTBody Mass Index21.13111/14/2024 3:54 PM ESTdocumented in this encounter Progress Notes * Lila Gaviria MA - 09/14/2025 3:40 PM EST Reason for Appointment: Patient ID: Camryn Garcia is a 55 y.o. female who presents for Gynecologic Exam Patient presents today for Annual Exam. MEDICATIONS Current Outpatient Medications Medication Instructions calcium citrate (CALCITRATE) 950 mg, Oral, Every morning celecoxib (CeleBREX) 200 MG capsule Every 12 [...] SYSTEMS Review of Systems: Review of Systems All other systems reviewed and are negative. OBJECTIVE Objective: Physical Exam Constitutional: Appearance: Normal appearance. She is well-developed. Genitourinary: Vulva normal. Cardiovascular: Rate and Rhythm: Normal rate and regular rhythm. Pulmonary: Effort: Pulmonary effort is normal. Breath sounds: Normal breath sounds. Abdominal: General: Bowel sounds are normal. There [...] nursing note reviewed. Exam conducted with a clinical training coordinator present. Vitals: Estimated body mass index is 21.13 kg/m?? as calculated from the following: Height as of this encounter: 5' 5 . Weight as of this encounter: 127 lb. BP: 102/68 No LMP recorded (lmp unknown). Patient has had a hysterectomy. Assessment/Plan ICD-10-CM 1. Well woman exam with routine gynecological exam Z01.419 THIN PREP TIS PAP AND HR HPV DNA 2. Encounter for screening mammogram for malignant neoplasm of breast Z12.31 Bilateral screening mammogram Bilateral screening mammogram 3. Osteoporosis, post-menopausal M81.0 DEXA bone density Annual: Patient presents today for an annual exam. Patient states she is doing well and has no complaints. Pap was obtained without difficulty and patient given mammogram/Dexa scan order to have scheduled/obtained. Orders Placed This Encounter Procedures Bilateral screening mammogram DEXA bone density Patient is agreeable to start Fosamax if needed after DexaScan. Follow Up: Patient is to return in one year for annual unless needed otherwise. Documented by Fabiana Bustillo LPN on behalf of: Anuradha Boateng PA-C documented in this encounter Plan of Treatment DateTypeDepartmentCare Team (Latest Contact Info)Wwjgntvjiel45/09/2026 3:00 PM ESTProcedure Visit [facility] [address] [place] [address] Garth Mcrae, [address] [place] [address] NameTypePriorityAssociated DiagnosesOrder ScheduleBilateral screening mammogram ImagingRoutine Encounter for screening mammogram for malignant neoplasm of breast Expected: 09/14/2025 (Approximate), Expires: 11/14/2026DEXA bone densityImaging Routine Osteoporosis, post-menopausal Expected: 09/14/2025 (Approximate), Expires: 09/14/2026THIN PREP TIS PAP AND HR HPV DNAPathology and CytologyRoutine Well woman exam with routine gynecological exam Ordered: 09/14/2025documented as of this encounter Procedures Procedure NamePriorityDate/TimeAssociated DiagnosisCommentsPAP TEST, EXTERNAL Ibbaaio1608/26/2024 12:00 AM EDTdocumented in this encounter Results * PAP TEST, EXTERNAL (08/26/2024 12:00 AM EDT) Narrative Authorizing ProviderResult TypeResult StatusCorey Clementina DOLAB CYTOLOGY ORDERABLESFinal ResultPerforming OrganizationAddressCity/State/ZIP CodePhone Number EXTERNAL LAB documented in this encounter Visit Diagnoses Diagnosis Well woman exam with routine gynecological exam Routine gynecological examination Encounter for screening mammogram for malignant neoplasm of breast Osteoporosis, post-menopausal Senile osteoporosis documented in this encounter Care Teams Team MemberRelationshipSpecialtyStart DateEnd Date Landon Tomlinson MD [address] [place] [address] PCP - GeneralFamily Wruelcyy66/15/24documented as of this encounter
--- OUTSIDE RECORDS SUMMARY | 2025-09-14 19:55 | XMS_ITS | Encounter Summary ---
Author Organization [facility] Address [address] [place] [address] Care Team Providers Care Cloth Drier Name Role Phone Landon Tomlinson MD Primary Care Provider [phone] Encounter Details DateTypeDepartmentCare Team (Latest Contact Info)Kndgbzqhpnc70/03/2025amboo flowsheet [facility] [address] [place] [address] [place] [address] Garth Mcrae DO [address] [place], [place] [address] Social History Tobacco UseTypesPacks/DayYears UsedDateSmoking Tobacco: Every DayCigarettes Alcohol UseStandard Drinks/WeekCommentsNever0 (1 standard drink = 0.6 oz pure alcohol)CommentsNoSex and Gender InformationValueDate RecordedSex Assigned at BirthNot on fileLegal HpxYqemhq41/15/2023 6:47 PM EDTGender Identity Not on fileSexual OrientationNot on filedocumented as of this encounter Plan of Treatment DateTypeDepartmentCare Team (Latest Contact Info)Puoseoeuzpg46/09/2026 3:00 PM ESTProcedure Visit [facility] [address] [place] [address] Garth Mcrae DO [address] [place], [place] [address] documented as of this encounter Visit Diagnoses Not on filedocumented in this encounter Care Teams Team MemberRelationshipSpecialtyStart DateEnd Date Landon Tomlinson MD [address] [place] [address] PCP - GeneralFamily Ejjjrpwh63/15/24documented as of this encounter
--- OUTSIDE RECORDS SUMMARY | 2025-09-14 19:55 | XMS_ITS | Clinical Summary ---
Author Organization [facility] tem Address [id number] [address] [place] [address] Care Team Providers Care Auto Body Repairman Name Role Phone Jeannette Srinivasan MD Primary Care Provider [phone] Allergies Active AllergyReactionsCriticalityNoted PtnoPkdjvlviLhyvttwNfjzo82/14/2017 Medications MedicationSigDispense QuantityRefillsLast FilledStart DateEnd DateStatus venlafaxine (EFFEXOR) 37.5 mg tablet Take 37.5 mg by mouth daily.Active celecoxib (CeleBREX) 200 mg capsule Take 200 mg by mouth as needed for pain.Active Family History Medical HistoryRelationNameCommentsCancerFatherlungHeart failureMotherRelation NameStatusCommentsFatherDeceasedMotherDeceased Social History Tobacco UseTypesPacks/DayYears UsedDateSmoking Tobacco: Every DayCigarettes Smokeless Tobacco: NeverAlcohol UseStandard Drinks/WeekCommentsYes4 (1 standard drink = 0.6 oz pure alcohol)ChildcareAnswerDate RecordedChildcareUnknown 04/23/2019EmploymentAnswerDate WxqqqthyOrrgbbkguwQbioegb85/12/2019Purpose - Life AnswerDate RecordedPurpose and direction in lhyrTssknwl21/11/2021 CommentsNoSex and Gender InformationValueDate RecordedSex Assigned at BirthNot on fileLegal KsnKnslrj04/06/2015 11:34 AM EDTGender IdentityNot on fileSexual OrientationNot on file Last Filed Vital Signs Vital SignReadingTime TakenCommentsBlood Vzzaafjw733/8810/10/2017 9:00 AM EST Gdjzc394410/10/2017 8:45 AM QINEjgacnjhrrw36.6 ??C (97.9 ??F)10/10/2017 6:29 AM ESTRespiratory Wpcy943012/10/2016 6:29 AM ESTOxygen Wgvbucislj604%10/10/2017 8:30 AM ESTInhaled Oxygen Concentration--Dtaftn46.7 kg (125 lb)10/10/2017 6:29 AM EST Ibdmme944.6 cm (5' 6 )10/10/2017 6:29 AM ESTBody Mass Index20.18112/10/2016 6:29 AM EST Plan of Treatment Not on file Medical Devices Not on file Insurance Care Teams Team MemberRelationshipSpecialtyStart DateEnd Jeannette Srinivasan MD PCP - GeneralFamily Ixawprxm98/29/17
--- OUTSIDE RECORDS SUMMARY | 2025-09-14 19:55 | XMS_ITS | Clinical Summary ---
Author Organization [facility] Address [address] [place] [address] Care Team Providers Care Child Care Team Lead Name Role Phone Landon Tomlinson MD Primary Care Provider [phone] Allergies Active AllergyReactionsCriticalityNoted DateCommentsAspirinHives,Other09/25/2017 Medications MedicationSigDispense QuantityRefillsLast FilledStart DateEnd DateStatus Rimegepant Sulfate (Nurtec) 75 MG tablet dispersible Take 75 mg by mouth02/25/2024ctive potassium chloride ER (Micro-K) 10 MEQ ER capsule Refills(s) ctive metoprolol succinate XL (Toprol-XL) 25 MG 24 hr tablet Take 25 mg by mouth06/05/2024ctive losartan (Cozaar) 100 MG tablet Take 100 mg by mouth01/14/2024ctive hydroCHLOROthiazide (HYDRODiuril) 25 MG tablet Take 25 mg by mouth01/14/2024ctive celecoxib (CeleBREX) 200 MG capsule every 12 (twelve) hoursActive calcium citrate (Calcitrate) 950 (200 Ca) MG tablet Take 950 mg by mouth in the morning.11/11/2023ctive Norvasc 5 MG tablet Take 5 mg by mouth02/25/2024ctive calcium carbonate (Calcium 600) 600 MG tablet Indications:Osteoporosis, post-menopausalTake 1 tablet (600 mg) by mouth in the morning and 1 tablet (600 mg) in the evening. Take with meals. 60 tablet /ctive cholecalciferol (Vitamin D-3) 10 MCG (400 UNIT) capsule Indications:Osteoporosis, post-menopausalTake 1 capsule (10 mcg) by mouth in the morning and 1 capsule (10 mcg) before bedtime. 60 capsule 1110/515Active Encounters DateTypeDepartmentCare CduwYoowhpldabu09/03/2025 3:40 PM ESTOffice Visit [facility] [address] [place], [place] [address] [address] Garth Mcrae DO Well woman exam with routine gynecological exam; Encounter for screening mammogram for malignant neoplasm of breast; Osteoporosis, post-cidqdndgxl29/03/2025amboo flowsheet [facility] [place] [address] Garth Mcrae DO from Last 3 Months Family History Medical HistoryRelationNameCommentsLung cancerFatherHeart attackMotherRelation NameStatusCommentsFatherDeceasedMotherDeceased Social History Tobacco UseTypesPacks/DayYears UsedDateSmoking Tobacco: Every DayCigarettes Tobacco Cessation:Ready to Q uit: Not Asked; Counseling Given: Not Answered Alcohol UseStandard Drinks/WeekCommentsNever0 (1 standard drink = 0.6 oz pure alcohol)CommentsNoSex and Gender InformationValueDate RecordedSex Assigned at BirthNot on fileLegal QsyYugeun46/15/2023 6:47 PM EDTGender Identity Not on fileSexual OrientationNot on file Last Filed Vital Signs Vital SignReadingTime TakenCommentsBlood Nieckrso595/6809/14/2025 3:54 PM EST Pulse--Temperature--Respiratory Rate--Oxygen Saturation--Inhaled Oxygen Concentration--Eudurt85.6 kg (127 lb)09/14/2025 3:54 PM JCTTafdup881.1 cm (5' 5 )09/14/2025 3:54 PM ESTBody Mass Index21.13111/14/2024 3:54 PM EST Plan of Treatment DateTypeDepartmentCare Team (Latest Contact Info)Zqbrlpdxazu38/09/2026 3:00 PM ESTProcedure Visit [facility] [address] [place], [place] [address] [address] Garth Mcrae DO [address] [place] [address] Insurance Care Teams Team MemberRelationshipSpecialtyStart DateEnd Date Landon Tomlinson MD [address] [place] [address] PCP - GeneralFamily Cmgvsqez42/15/24
--- OUTSIDE RECORDS SUMMARY | 2025-09-14 19:55 | XMS_ITS | Encounter Summary ---
Author Organization [facility] Address [address] [place] [address] Care Team Providers Care Embossing Machine Operator Helper Name Role Phone Landon Tomlinson MD Primary Care Provider [phone] Encounter Details DateTypeDepartmentCare Team (Latest Contact Info)Cgiynllnyrn81/15/2024Clinisync Result Encounter [facility] External Department Unsolicited Garth Mcrae DO [address], [place] [address] Social History Tobacco UseTypesPacks/DayYears UsedDateSmoking Tobacco: Every DayCigarettes Alcohol UseStandard Drinks/WeekCommentsNever0 (1 standard drink = 0.6 oz pure alcohol)CommentsUnknownSex and Gender InformationValueDate RecordedSex Assigned at BirthNot on fileLegal IbnWcmpwy97/15/2023 6:47 PM EDTGender Identity Not on fileSexual OrientationNot on filedocumented as of this encounter Plan of Treatment DateTypeDeark[facility] methodist medical centerCare Team (Latest Contact Info)Nkwgrbbnveb67/09/2026 3:00 PM ESTProcedure Visit [facility] [place] [facility] [address] [facility] [place] [address] Garth Mcrae DO [address] [place] [address] documented as of this encounter Procedures Procedure NamePriorityDate/TimeAssociated DiagnosisCommentsMM TOMOSYNTHESIS SCREENING BI09/26/2024 9:06 AM EST documented in this encounter Results * MM TOMOSYNTHESIS SCREENING BI (09/26/2024 9:06 AM EST)Anatomical Region LateralityModalityOtherSpecimen (Source)Anatomical Location / Laterality Collection Method / VolumeCollection TimeReceived Time09/26/2024 9:06 AM EST Narrative 09/26/2024 9:07 AM EST [facility] ?[address] ? [place] [address] ? Mammography Report ? Signed ? Patient: CAMRYN WILLIAMSON D ?MR#: [id number] ?? : 1970 ?Acct:[id number] ?? Age/Sex: 54 / F ?ADM Date: 09/25/24 ?? Loc: MAMMO ? Attending Dr: Garth Mcrae D.O. ? Ordering Physician: Garth Mcrae D.O. ?Results: ? Date of Service: 09/25/24 ?Follow Up: ? Procedure(s): MM tomosynthesis screening BI ?? Accession Number(s): [id number] ? cc: Garth Mcrae D.O.; Physician,Non-Staff M.D. ? Patient Name: ? CAMRYN WILLIAMSON ? MR#: [id number] ? : 1970 ? Exam Date: 09/25/2024 ?? Ordering Doctor: DR Garth Mcrae . ? RADIOLOGY REPORT ? PROCEDURE: ? MM TOMOSYNTHESIS SCREENING BI ? COMPARISON: ? MM TOMOSYNTHESIS SCREENING BI, 09/12/2023. ??MG MAMM CHARLES DIAG W ?? CAD DIG, 02/22/2016. ??MG MAMM CHARLES SCRN W CAD DIG, 09/02/2013. ? INDICATIONS: ? Screening for malignant neoplasm ? Calculator Name ? NCI Breast Cancer Risk Assessment Tool ?? 5 Year Breast Cancer Risk ? 0.80% ?? Lifetime Breast Cancer Risk ? 5.30% ?? Personal Breast Cancer ?No ?? Personal Ovarian Cancer ? No ?? Treatments ? None ?? Family Cancers ? Father with lung cancer at age 65. ? LOCATION: ? [facility] ? BREAST COMPOSITION: ? The breasts are extremely dense, which lowers the ?? sensitivity of mammography. ? FINDINGS: ? DIAGNOSTIC CATEGORY 2--BENIGN FINDING: ? RIGHT BREAST: ??No significant suspicious finding. ??Stable, chronic irregular ?? fibroglandular tissue posterior upper-outer quadrant. ??No significant change ?? has occurred. ? LEFT BREAST: ??No significant suspicious finding. ??Stable, chronic irregular ?? fibroglandular tissue posterior upper-outer quadrant. ??No significant change ?? has occurred. ? RECOMMENDATIONS: ? ROUTINE MAMMOGRAM AND CLINICAL EVALUATION IN 12 MONTHS. ? PLEASE NOTE: ??A NORMAL MAMMOGRAM DOES NOT EXCLUDE THE POSSIBILITY OF BREAST ?? CANCER. ??A CLINICALLY SUSPICIOUS PALPABLE LUMP SHOULD BE BIOPSIED. ? Dictated by: Yang Tobar M.D. on 09/26/2024 at 08:40 ? Approved by: Yang Tobar M.D. on 09/26/2024 at 09:06 ? Dictated By: ?Yang Tobar M.D. ? Signed By: ?09/26/24 0907 ? DD/ 0906 ? TD/TT: ? Can Closing Machine Operator: Procedure Note Radiology, Radiologist, MD - 09/26/2024 [place] [address] Mammography Report Signed Patient: CAMRYN WILLIAMSON [facility]#: [id number] : 1970Acct:[id number] Age/Sex: 54 / FADM Date: 09/25/24 Loc: MAMMO Attending Dr: Garth Mcrae D.O. Ordering Physician: Garth Mcrae D.O.Results: Date of Service: 09/25/24Follow Up: Procedure(s): MM tomosynthesis screening BI Accession Number(s): [id number] cc: Garth Mcrae D.O.; Physician,Non-Staff Allan Patient Name: CAMRYN WILLIAMSON MR#: [id number] : 1970 Exam Date: 09/25/2024 Ordering Doctor: DR Garth Mcrae . RADIOLOGY REPORT PROCEDURE: MM TOMOSYNTHESIS SCREENING BI COMPARISON: MM TOMOSYNTHESIS SCREENING BI, 09/12/2023. MG MAMM BILDIAG W CAD DIG, 02/22/2016. MG MAMM CHARLES SCRN W CAD DIG, 09/02/2013. INDICATIONS: Screening for malignant neoplasm Calculator Name NCI Breast Cancer Risk Assessment Tool 5 Year Breast Cancer Risk 0.80% Lifetime Breast Cancer Risk 5.30% Personal Breast Cancer No Personal Ovarian Cancer No Treatments None Family Cancers Father with lung cancer at age 65. LOCATION: [facility] BREAST COMPOSITION: The breasts are extremely dense, which lowers the sensitivity of mammography. FINDINGS: DIAGNOSTIC CATEGORY 2--BENIGN FINDING: RIGHT BREAST: No significant suspicious finding. Stable, chronicirregular fibroglandular tissue posterior upper-outer quadrant. No significantchange has occurred. LEFT BREAST: No significant suspicious finding. Stable, chronicirregular fibroglandular tissue posterior upper-outer quadrant. No significantchange has occurred. RECOMMENDATIONS: ROUTINE MAMMOGRAM AND CLINICAL EVALUATION IN 12 MONTHS. PLEASE NOTE: A NORMAL MAMMOGRAM DOES NOT EXCLUDE THE POSSIBILITY OFBREAST CANCER. A CLINICALLY SUSPICIOUS PALPABLE LUMP SHOULD BE BIOPSIED. Dictated by: Yang Tobar M.D. on 09/26/2024 at 08:40 Approved by: Yang Tobar M.D. on 09/26/2024 at 09:06 Dictated By: Yang Tobar M.D. Signed By:09/26/24906 DD/ 5 TD/TT: Can Closing Machine Operator: Authorizing ProviderResult TypeResult StatusCorey Clementina DOCLINISYNC IMAGINGFinal Result documented in this encounter Visit Diagnoses Not on filedocumented in this encounter Care Teams Team MemberRelationshipSpecialtyStart DateEnd Date Landon Tomlinson MD [address] [place] [address] PCP - GeneralFamily Qqjrtctr98/15/24documented as of this encounter
--- OUTSIDE RECORDS SUMMARY | 2025-09-14 19:55 | XMS_ITS | Clinical Summary ---
Author Organization [facility] Address [address] [place] [address] Care Team Providers Care Residential Real Estate Sales Manager Name Role Phone Unavailable Primary Care Provider Unavailabl e Encounters DateTypeDepartmentCare SyytToyuwikcwnt30/28/2025Lab Requisition [facility] [address] [place], [place] [id number] Richi Licea, PhD from Last 3 Months Social History Tobacco UseTypesPacks/DayYears UsedDateSmoking Tobacco: Never Assessed CommentsUnknownSex and Gender InformationValueDate RecordedSex Assigned at Not on fileLegal WakPjamyv15/28/2025 11:48 AM EDTGender IdentityNot on file Sexual OrientationNot on file Plan of Treatment Not on file Procedures Procedure NamePriorityDate/TimeAssociated DiagnosisCommentsBLOOD TB SCREEN, WSKTLGJIFOcarsot75/26/2025 4:24 PM EDT from Last 3 Months Results * BLOOD TB SCREEN, INCUBATED (07/07/2025 4:24 PM EDT)ComponentValueRef RangeTest MethodAnalysis TimePerformed AtPathologist SignatureTB Nil0.11<=8.00 IU/mL 07/14/2025 10:39 AM [facility] LABTB1 Ag minus Nil<0.00 <0.35 IU/mL07/14/2025 10:39 [facility]2 Ag minus Nil<0.00<0.35 IU/mL07/14/2025 10:39 AM [facility] LABTB DxrdptDkpotwky80/02/2025 10:39 AM [facility] LABMitogen minus Nil>9.89>=0.50 IU/mL07/14/2025 10:39 AM [facility] LABTB Gamma InterpretationInfection with M. tuberculosis complex is unlikely. If latent tuberculosis infection is highly suspected, a negative result does not rule out the infection. Specimens from immunocompromised patients and those <5 years of age may show false negative results. In case of a contact investigation, please repeat 8-12 weeks after a known exposure.07/14/2025 10:39 AM EDTCMER[facility] LABSpecimen (Source)Anatomical Location / LateralityCollection Method / VolumeCollection TimeReceived Time BloodBLOOD SPECIMEN / Llehxbd2607/07/2025 4:24 PM EDT07/10/2025 9:56 PM EDT Narrative Authorizing ProviderResult TypeResult StatusMajojennifer Licea PhDLABORATORYFinal ResultPerforming OrganizationAddressCity/State/ZIP CodePhone Number [facility] [address] [facility] Desk [address] [address], [place] from Last 3 Months
[2025-09-18 13:08] LABS: Age Gdln ACOG Testing Note (.); IGP, Aptima HPV, rfx 16/18,45 Note (.)
== END 2025-09-14 19:53 | disposition home or self-care (01) ==
LOC: LAB 19:52
PROVIDERS: PCP Nurse Practitioner Family; Visit Provider Obstetrics & Gynecology
DX: Z01.419 Encounter for gynecological examination (general) (routine) without abnormal findings (principal)
CPT/HCPCS: 87624; 88175

== ENCOUNTER 2025-10-20 09:10 | Outpatient (OUT) | payer MEDICAID, SELFPAY ==
--- NOTE | 2025-10-20 09:15 | MM_ITS ---
Patient Name: MESFIN WILLIAMSON MR#: [id number] : 1970 Exam Date: 10/20/2025 Ordering Doctor: DR MEEK MAHAJAN . RADIOLOGY REPORT PROCEDURE: MM TOMOSYNTHESIS SCREENING BI COMPARISON: MM TOMOSYNTHESIS SCREENING BI, 09/25/2024. MM TOMOSYNTHESIS SCREENING BI, 09/12/2023. MG MAMM CHARLES DIAG W CAD DIG, 02/22/2016. MG MAMM CHARLES SCRN W CAD DIG, 09/02/2013. INDICATIONS: Screening Calculator Name NCI Breast Cancer Risk Assessment Tool 5 Year Breast Cancer Risk 0.80% Lifetime Breast Cancer Risk 5.20% Personal Breast Cancer No Personal Ovarian Cancer No Treatments None Family Cancers Father with lung cancer at age 65. LOCATION: [facility] BREAST COMPOSITION: The breasts are extremely dense, which lowers the sensitivity of mammography. FINDINGS: RIGHT BREAST: No significant suspicious finding. Benign-appearing calcifications are present along with similar focal asymmetries. LEFT BREAST: No significant suspicious finding. Benign-appearing calcifications are present. DIAGNOSTIC CATEGORY 2--BENIGN FINDING. NO CHANGE FROM COMPARISON. RECOMMENDATIONS: ROUTINE MAMMOGRAM AND CLINICAL EVALUATION IN 12 MONTHS. Dictated by: Torsten León MD on 10/20/2025 at 13:51 Approved by: Torsten León MD on 10/20/2025 at 13:57
--- OUTSIDE RECORDS SUMMARY | 2025-10-20 09:37 | XMS_ITS | CCD ---
Author Organization [facility] ion Partnership [facility] Care Team Providers Care Food And Beverage Controller Name Role Phone DR CHRISTI SRINIVASAN Attending Unavailable ZARINA, DR CHRISTI Garcia Consulting Unavailable ZARINA, DR CHRISTI Garcia Primary Care Unavailable ZARINA, DR CHRISTI Garcia Admitting Unavailable CLEMENTINA, DR EDEN Consulting Unavailable CLEMENTINA, DR EDEN Admitting Unavailable CLEMENTINA, DR EDEN Attending Unavailable ZARINA, DR CHRISTI Garcia Primary Care Unavailable Landon Tomlinson Primary Care Physician Landon Tomlinson Attending Unavailable Landon Tomlinson Attending Unavailable Landon Tomlinson Attending Unavailable Landon Tomlinson Attending Unavailable Landon Tomlinson Attending Unavailable Landon Tomlinson Attending Unavailable Landon Tomlinson Attending Unavailable Landon Tomlinson Attending Unavailable Landon Tomlinson Referring Unavailable Aubrey Glass Attending Unavailable Landon Tomlinson Referring Unavailable Landon Tomlinson Admitting Unavailable Landon Tomlinson Attending Unavailable Landon Tomlinson MD Primary Care Provider [phone] Cyndi Addison APRN Primary Care Provider Cyndi Addison APRN Attending Provider MEEK MCRAE Attending Unavailable Allergies Allergy ClassificationReported Allergen(s)Allergy TypeDate of OnsetReaction(s) FacilityAspirin (1 source)Aspirin; Translations: [aspirin]Drug AllergyUnknown (qualifier value) [facility] [place] (2 sources)Aspirin; Translations: [aspirin]Drug Bzaceel79-44-9185[facility] (1 source)CodeineDrug AllergyThe [facility] (1 source)metroNIDAZOLEDrug AllergyThe [facility] (2 sources)Aspirin; Translations: [aspirin]Drug AllergyUnknown (qualifier value) [facility] [place] (9 sources)Aluminum aspirinDrug Mhgauvs15-20-7635Kwzbl, OtherNOMS Healthcare Medications Current Medications MedicationDrug Class(es)DatesSig (Normalized)Sig (Original)amLODIPine 5 mg oral tablet (10 sources)Dihydropyridine Calcium Channel BlockerStart: 73-29-7438Bznclbk 5 MG tablet Take 5 mg by mouth 02/25/2024 ActiveAscorbic Acid (2 sources)Vitamin CStart: 68-28-2299Aphdfry C Refills(s) 0 Start Date: 04/04/24 Status: Jncuxiu84 hr buPROPion hydrochloride 150 mg extended release oral tablet (1 source)AminoketoneStart: 49-88-7310anij 1 tablet by mouth once dailyBupropion Hcl (Wellbutrin Sr) 150 mg tablet sustained-release 12 hr Active 150 MG PO Daily 30 30 September 09, 2025 12:00am Depression Depression, unspecified Complies with drug therapybusPIRone hydrochloride 10 mg oral tablet (3 sources)Start: 08-12-2025 End: 82-02-3242uvco 1 tablet by mouth three times dailyBuspirone 10 mg tablet Active 10 MG PO Three times daily 270 90 September 09, 2025 9:34am Anxiety Anxiety disorder, unspecified Complies with drug therapyCalcium (4 sources)Phosphate Binder, CalciumStart: 10-16-2023 End: 69-31-7199scyl 1 tablet by mouth in the morningcalcium 200 MG tablet Indications: Osteopenia, unspecified location Take 1 tablet (200 mg) by mouthin the morning. 90 tablet 3 10/16/2023 10/15/2024 Activecalcium carbonate 1500 mg oral tablet (3 sources)Start: 09-14-2025 End: 82-55-1453dvcm 1 tablet by mouth in the morningcalcium carbonate (Calcium 600) 600 MG tablet Indications: Osteoporosis, post-menopausal Take 1 tablet (600 mg) by mouth in the morning and 1 tablet (600 mg) in the evening. Take with meals. 60 tablet 11 09/14/2025 09/09/2026 Activecalcium citrate 950 mg oral tablet (9 sources)Start: 70-87-7773teqq 1 tablet by mouth in the morningcalcium citrate (Calcitrate) 950 (200 Ca) MG tablet Take 950 mg by mouth in the morning. 11/11/2023ctivecelecoxib 200 mg oral capsule (9 sources)Nonsteroidal Anti-inflammatory Drugcelecoxib (CeleBREX) 200 MG capsule every 12 (twelve) hours Activecholecalciferol 0.01 mg oral capsule (6 sources)Vitamin DStart: 09-14-2025 End: 44-33-1363uxdk 1 capsule by mouth in the morningcholecalciferol (Vitamin D- 3) 10 MCG (400 UNIT) capsule Indications: Osteoporosis, post-menopausal Take 1 capsule (10 mcg) by mouth in the morning and 1 capsule (10 mcg) before bedtime. 60 capsule 10/14/2025 ActiveStart: 10-16-2023 End: 71-11-6300mexy 1 tablet by mouth in the morningcholecalciferol (Vitamin D- 3) 25 MCG (1000 UT) tablet Indications: Osteopenia, unspecified locationTake 1 tablet (25 mcg) by mouth in the morning. 90 tablet 3 10/16/2023 08/26/2024 Discontinued (Other)escitalopram 20 mg oral tablet (3 sources)Serotonin Reuptake InhibitorStart: 08-12-2025 End: 38-62-6765oxsd 1 tablet by mouth once dailyEscitalopram Oxalate 20 mg tablet Active 20 MG PO Daily 90 90 September 09, 2025 9:34am Depression Anxiety Depression, unspecified Anxiety disorder, unspecified Complies with drug therapyestrogens, conjugated ([facility]) 0.625 mg/ml vaginal cream (3 sources)EstrogenStart: 08-26-2024 End: 52-31-3902Nqxonwyzr Conjugated (Premarin) 0.625 MG/GM cream Indications: Vaginal dryness, menopausal Insert 0.5 applicators into the vagina at bedtime 1/2 applicator at bedtime for one month and then 2 times aweek after 30 g 3 08/26/2024 09/25/2024 ActivehydroCHLOROthiazide 12.5 mg oral tablet (16 sources)Thiazide DiureticStart: 23-25-4146qvxk 1 tablet by mouth once daily Hydrochlorothiazide 12.5 mg tablet Active 12.5 MG PO Daily 90 90 September 09, 2025 9:34am Hypertension Essential (primary) hypertension Complies with drug therapyStart: 01-14-2024 End: 55-78-1595iuibcJCRJYQemyfzeop (HYDRODiuril) 25 MG tablet Take 25 mg by mouth 01/14/2024 Activelosartan potassium 100 mg oral tablet (16 sources)Angiotensin 2 Receptor BlockerStart: 01-14-2024 End: 76-45-6097qfwmnfpk (Cozaar) 100 MG tablet Take 100 mg by mouth 01/14/2024 Qmjumu60 hr metoprolol succinate 25 mg extended release oral tablet (9 sources)beta-Adrenergic BlockerStart: 01-41-0955oltt 1 tablet by mouth every twenty-four hoursmetoprolol succinate XL (Toprol-XL) 25 MG 24 hr tablet Take 25 mg by mouth 06/05/2024 ActiveMultivitamin With Minerals (Multiple Vitamin- Minerals) tablet (2 sources)Start: 40-41-2183qosz 1 tablet by mouth once dailyMultivitamin With Minerals (Multiple Vitamin-Minerals) tablet Active 1 TAB PO Daily August 12, 2025 12:00am Complies with drug therapypotassium chloride 10 meq extended release oral capsule (11 sources)Start: 81-23-3535gfeiedymj chloride ER (Micro-K) 10 MEQ ER capsule Refills(s) 0 04/04/2024 Activerimegepant 75 mg disintegrating oral tablet (12 sources)Start: 86-73-6193Braqjikzpj Sulfate (Nurtec) 75 MG tablet dispersible Take 75 mg by mouth 02/25/2024 ActiveStart: 52-71-2136mrky 1 tablet by mouth onceNurtec ODT 75 mg oral tablet, disintegrating 75 mg = 1 tab(s), Oral, Once, # 14 tab(s), Refills(s) 0, Pharmacy: [facility]/pharmacy #[id number], 167.1, cm, 02/25/24 11:22:00 EDT, Height/Length Dosing, 55.7, kg, 02/25/24 11:22:00 EDT, Weight Dosing Start Date: 02/25/24 Status: OrderedrOPINIRole 0.25 mg oral tablet (1 source)Nonergot Dopamine AgonistStart: 01-67-3169pyph 1 tablet by mouth once daily at bedtimeRopinirole 0.25 mg tablet Active 0.25 MG PO Daily at bedtime 30 30 0 September 09, 2025 12:00am administer 1-3 hours before bedtime Complies with drug therapytraZODone hydrochloride 150 mg oral tablet (3 sources)Serotonin Reuptake InhibitorStart: 08-12-2025 End: 29-31-6211kgmh 1 tablet by mouth once daily at bedtime as needed for sleep Trazodone 150 mg tablet Active 150 MG PO Daily at bedtime as needed for sleep 90 90 August 14, 2025 10:51am Disturbance in sleep behavior Sleep disorder, unspecified Complies with drug therapy Completed/Discontinued Medications MedicationDrug Class(es)DatesSig (Normalized)Sig (Original)hydroCHLOROthiazide 25 mg / losartan potassium 100 mg oral tablet (2 sources)Thiazide Diuretic, Angiotensin 2 Receptor BlockerStart: 08-12-2025 End: 95-67-9311qihm 1 tablet by mouth once dailyLosartan-Hydrochlorothiazide 100-25 mg tablet Discontinued 1 TAB PO Daily August 12, 2025 12:00amOct2024 9:16am24 hr venlafaxine 37.5 mg extended release oral capsule (3 sources)Serotonin and Norepinephrine Reuptake Inhibitor End: 33-27-8488kbsvycpuwzg XR (Effexor XR) 37.5 MG 24 hr capsule 1 (one) time each day at the same time 08/26/2024iscontinued (Other) Problems Problem ClassificationProblemDateDocumented DateEpisodic/ChronicAnxiety disorders (8 sources)Anxiety; Translations: [Anxiety disorder, unspecified]03-28-2023 ChronicChronic kidney disease (3 sources)Chronic kidney disease stage 3; Translations: [Stage 3 chronic kidney disease]60-36-6500TymeqhbRdsjpwwebj associated with dizziness or vertigo (5 sources)Dizziness; Translations: [Dizziness and giddiness]26-26-2867Uobdscub Essential hypertension (9 sources)Hypertensive disorder; Translations: [Essential hypertension]Onset: 880985-93-7182ZtxzopiNebfrpnx; including migraine (6 sources)Mnwxfuqj58-59-6481UhnhhjfPdsnamhdqhnnz and screening for infectious disease (1 source)Encounter for screening for human papillomavirus (HPV); Translations: [ENC SCREENING HUMAN PAPILLOMAVIRUS]Onset: 73-89-2725HdtoddyeRihaklb and fatigue (10 sources)Other fatigue; Translations: [Fatigue]Onset: 47-14-2920Oaxdfhif Menopausal disorders (2 sources)Vaginal dryness; Translations: [Menopausal and female climacteric states]00-54-4608BexuibtPpuz disorders (8 sources)Depressive disorder; Translations: [Depression]84-33-3370Qtgkpxa Osteoarthritis (3 sources)Gxxeyloxotvram05-24-7629HrcvtisUmeaxkmdxptr (2 sources)Postmenopausal osteoporosis; Translations: [Age-related osteoporosis without current pathological fracture]71-28-5456KnrdimzRoify nervous system disorders (3 sources)Carpal tunnel hfwrzjyr62-42-6046ZmawfowXyypd nutritional; endocrine; and metabolic disorders (1 source)Abnormal weight loss; Translations: [ABNORMAL WEIGHT LOSS]Onset: 58-10-4030NwmijmvcEwrra screening for suspected conditions (not mental disorders or infectious disease) (11 sources)Encounter for screening for malignant neoplasm of cervix; Translations: [Abnormal results of cardiovascular function studies]Onset: 22-88-8002SwhpmyipXopmkrypfb and visceral atherosclerosis (3 sources)Peripheral vascular gbgzuqv81-18-5774TqwopcdIldsqlwy codes; unclassified (2 sources)Postmenopausal state; Translations: [Asymptomatic menopausal state] 50-76-4716EdjiyghtFhcayvgd codes; unclassified (1 source)Disturbance in sleep behavior; Translations: [Sleep disorder, unspecified]15-86-6375LpdybdzgJzouhoon veins of lower extremity (3 sources)Varicose veins of lower xelbuzxst32-79-9444Tsxwkmpm Results Test NameValueInterpretationReference RangeFacilityIGP,APTIMA HPV,AGE GDLNon 24-38-3008BZF GDLN ACOG TESTINGNote.NOMS HealthcareComment on above:TESTS RESULT FLAG UNITS REF RANGE LAB Clinician Provided Cytology Information Source.............Vagina No. of containers..01 ThinPrep Vial Age Jorje ALLAN Maricruz... [age] FLAG LEGEND: L-Low Normal,H-High Normal,LL-Alert Low,HH-Alert High <-Panic Low,>-Panic High,A-Abnormal,AA-Critical Abnormal Performed at: 01 =[address] [address] Tosha Malcolm MD, HPV APTIMANegativeNegativeNOMS HealthcareComment on above:This nucleic acid amplification test detects fourteen high- risk HPV types (16,18,31,33,35,39,45,51,52,56,58,59,66,68) without differentiation. Performed at: =[address] [id number] [employer] Air Traffic Control Specialist: Tosha Malcolm MD, Phone: [phone] Performed at: [address] [id number] [employer] Traffic [employer] Specialist: Tosha Malcolm MD, Phone: [phone] IGP, APTIMA HPV, RFX 16/18,45NoteAbnormal.NOMS HealthcareComment on above:TESTS RESULT FLAG UNITS REF RANGE LAB DIAGNOSIS: [A] 02 EPITHELIAL CELL ABNORMALITY. ATYPICAL SQUAMOUS CELLS OF UNDETERMINED SIGNIFICANCE (ASC-US). Specimen adequacy: 02 Satisfactory for evaluation. No endocervical component is identified. Performed by: 02 Dahiana Barbour, Maple Products Maker (ASCP) Electronically si... Renu Millard MD, Pathologist . 02 Pathologist ICD10: 02 R87.610 Note: Note 02 The Pap smear is a screening test designed to aid in the detection of premalignant and malignant conditions of the uterine cervix. It is not a diagnostic procedure and should not be used as the sole means of detecting cervical cancer. Both false-positive and false-negative reports do occur. Test Methodology: Note 02 This liquid based ThinPrep(R) pap test was interpreted using the Novariant(R) GenBacula(TM) Cervical Algorithm whole slide imaging system. HPV Genotype Reflex Note 02 Criteria not met, HPV Genotype not performed. FLAG LEGEND: L-Low Normal,H-High Normal,LL-Alert Low,HH-Alert High <-Panic Low,>-Panic High,A-Abnormal,AA-Critical Abnormal Performed at: [address] [address] Tosha Malcolm MD, Interpretation and review of laboratory resultsAbnormalNOOK Healthcare SPATULA-ALONE VAGINA CLINISYNCNOOK HealthcareBasophils Auto (Bld) [#/Vol]Ordered By: Cynid Addison on 84-80-0395Ehiobvzcv (Bld) [#/Vol]0.0 10 3/uL0.0-0.1FAdena Pike Medical CenterBasophils/100 WBC Auto (Bld)Ordered By: Cyndi Addison on 73-15-8539Nyigakucd/100 WBC (Bld)0.3 %0.2-2.0[facility] HospitalCholesterol in LDL Calc [Mass/Vol]Ordered By: Cyndi Addison on 63-65-5047Iveqifqgumt in LDL [Mass/Vol]80.0 mg/dLOhiohealth Mansfield HospitalComment on above:<100 mg/dl IKKMJNZ480-549 mg/dl NEAR OR ABOVE SRYWRRX652- 159 mg/dl BORDERLINE IVBY961-325 mg/dl HIGH>190 mg/dl VERY HIGHCholesterol in VLDL Calc [Mass/Vol]Ordered By: Cyndi Addison on 95-07-3791Rzqsliyiytx in VLDL [Mass/Vol]10.8 mg/dLOhiohealth Mansfield HospitalEosinophils/100 WBC Auto (Bld)Ordered By: Cyndi Addison on 78-04-5867Dgiynrhqjbw/100 WBC (Bld) 0.8 %Low0.9-7.0[facility] HospitalErythrocyte distribution width Auto (RBC) [Ratio]Ordered By: Cyndi Addison on 67-08-8105Kcaclggggdg distribution width (RBC) [Ratio]12.1 %11.0-15.0[facility] Globulin Calc (S) [Mass/Vol]Ordered By: Cyndi Addison on 08-12-2025 Globulin (S) [Mass/Vol]2.9 g/dLOhiohealth Mansfield HospitalGlomerular filtration rate (GFR) estimation in non- AmericanOrdered By: Cyndi Addison on 39-15-5110ACX/1.73 sq M.predicted among non-blacks MDRD (S/P/Bld) [Vol rate/Area]40 mL/min/{1.73_m2}Low>=60 mL/min/1.73m 2FAdena Pike Medical CenterHematocrit Auto (Bld) [Volume fraction]Ordered By: Cyndi Addison on 27-91-2765Mxzzemcrrb (Bld) [Volume fraction]30.9 %Low36.0-48.0 [facility] HospitalHemoglobin [Mass/volume] in BloodOrdered By: Cyndi Addison on 75-54-7399Usiaballrv (Bld) [Mass/Vol]11.0 g/dLLow 12.0-16.0[facility] HospitalIron binding capacity [Mass/volume] in Serum or PlasmaOrdered By: Cyndi Addison on 62-48-4066Btem binding capacity [Mass/Vol]198.0 ug/qNQmo994.0-450.0[facility] Iron saturation [Mass Fraction] in Serum or PlasmaOrdered By: Cyndi Addison on 74-30-9837Boyk saturation [Mass fraction]54.0 %[facility] HospitalLaboratory - Chemistry and Chemistry - challengeOrdered By: Cyndi Addison on 02-36-0855Joxvhxm [Mass/Vol]3.8 g/dL3.4-5.0[facility] HospitalALP [Catalytic activity/Vol]50 U/A95-304XidkmbzrqOhiohealth Mansfield HospitalALT [Catalytic activity/Vol]18 U/H55-78UdnpcezegOhiohealth Mansfield HospitalAST [Catalytic activity/Vol]22 U/S63-92JlvrrtateOhiohealth Mansfield HospitalBilirubin [Mass/Vol]0.5 mg/dL0.2-1.0[facility] Calcium [Mass/Vol]9.0 mg/dL8.5-10.1FAdena Pike Medical CenterChloride [Moles/Vol]106 mmol/A30-742ZophkxllwOhiohealth Mansfield HospitalCholesterol [Mass/Vol]156 mg/dL<=200Ohio[facility] HospitalCholesterol in HDL [Mass/Vol]66 mg/aPQtcw61-82IbrbcxuwjOhiohealth Mansfield HospitalComment on above:> or =60 mg/dl - LOW CARDIOVASCULAR RISK<40 mg/dl - HIGH CARDIOVASCULAR RISKCO2 [Moles/Vol]27.0 mmol/L21.0-32.0[facility] HospitalCreatinine [Mass/Vol]1.36 mg/dLHigh0.55-1.02[facility] HospitalFerritin [Mass/Vol]87.0 ng/mL8.0-252.0[facility] HospitalGFR/1.73 sq M.predicted MDRD (S/P/Bld) [Vol rate/Area]49 mL/min/{1.73_m2}Low>=60 mL/min/1.73m 2FAdena Pike Medical CenterGlucose [Mass/Vol]85 mg/kV70-420 [facility] HospitalIron [Mass/Vol]107.0 ug/dL50.0-170.0[facility] HospitalPotassium [Moles/Vol]3.9 mmol/L3.5-5.1FAdena Pike Medical CenterProtein [Mass/Vol]6.7 g/dL6.4-8.2FAdena Pike Medical Center Sodium [Moles/Vol]142 mmol/P190-907PrwiguhzuOhiohealth Mansfield HospitalTriglyceride [Mass/Vol]54 mg/dL<=150Ohio[facility] Mansfield HospitalTSH Qn2.845 m[IU]/L 0.358-3.740Ohio[facility] HospitalUrea nitrogen [Mass/Vol]16.0 mg/dL 7.0-18.0[facility] HospitalUrea nitrogen/Creatinine [Mass ratio] 11.8 mg/mgOhiohealth Mansfield HospitalLaboratory - Hematology and Cell countsOrdered By: Cyndi Addison on 33-95-8398Fdzskfdy granulocytes/100 WBC (Bld)0.0 %0.0-0.5FAdena Pike Medical CenterLeukocytes [#/volume] corrected for nucleated erythrocytes in Blood by Automated counOrdered By: Cyndi Addison on 05-03-1235EIO corrected for nucl RBC Auto (Bld) [#/Vol] 3.6 10 3/uLLow4.0-11.0[facility] HospitalLymphocytes Auto (Bld) [#/Vol]Ordered By: Cyndi Addison on 28-48-9624Lebyexpxhev (Bld) [#/Vol]1.4 10 3/uL1.2-3.8[facility] Mans[facility] HospitalLymphocytes/100 WBC Auto (Bld) Ordered By: Cyndi Addison on 94-67-3368Dlztahpceda/100 WBC (Bld)39.1 % 20.5-60.0Ohio[facility] Mans[facility] HospitalMCH Auto (RBC) [Entitic mass]Ordered By: Cyndi Addison on 47-53-2254VVT (RBC) [Entitic mass]31.5 pg26.7-34.0 [facility] HospitalMCHC Auto (RBC) [Mass/Vol]Ordered By: Cyndi Addison on 01-32-9646ZBWW (RBC) [Mass/Vol]35.6 g/iNHvxh21.9-35.2FAdena Pike Medical CenterMCV Auto (RBC) [Entitic vol]Ordered By: Cyndi Addison on 90-36-4350UIA (RBC) [Entitic vol]88.5 fL81.0-99.0[facility] HospitalMonocytes Auto (Bld) [#/Vol]Ordered By: Cyndi Addison on 68-26-2030Uwyovkozb (Bld) [#/Vol]0.3 10 3/uL0.3-0.8[facility] HospitalMonocytes/100 WBC Auto (Bld)Ordered By: Cyndi Addison on 83-84-0333Sponikika/100 WBC (Bld)9.4 %1.7-12.0[facility] HospitalNeutrophils Auto (Bld) [#/Vol]Ordered By: Cyndi Addison on 63-08-2837Dkoihwcxcgs (Bld) [#/Vol]1.8 10 3/uL1.4-6.5FAdena Pike Medical CenterNeutrophils/100 WBC Auto (Bld)Ordered By: Cyndi Addison on 66-15-3458Mevyizqrbsp/100 WBC (Bld)50.4 %43.0-75.0[facility] HospitalNo Panel InformationOrdered By: Cyndi Addison on 08-12-2025 Eosinophils # (Auto)0.0 10 3/uL0.0-0.7FAdena Pike Medical CenterImmature Granulocyte # (Auto)0.00 10 3/uL0.00-0.03[facility] Platelet mean volume Auto (Bld) [Entitic vol]Ordered By: Cyndi Addison on 62-54-4486Pcismiec mean volume (Bld) [Entitic vol]9.5 fL9.5-13.5FAdena Pike Medical CenterPlatelets Auto (Bld) [#/Vol]Ordered By: Cyndi Addison on 84-16-3410Pfjztrmzq (Bld) [#/Vol]237 10 3/qR476-299TskxszvhuOhiohealth Mansfield HospitalRBC Auto (Bld) [#/Vol]Ordered By: Cyndi Addison on 00-47-5442JRY (Bld) [#/Vol]3.49 10 6/uLLow4.20-5.40[facility] Foundationerum or plasma albumin/globulin mass ratioOrdered By: Cyndi Addison on 39-41-0052Deojrmk/Globulin [Mass ratio]1.3 {ratio}[facility] Foundationerum or plasma anion gap determinationOrdered By: Cyndi Addison on 14-73-7797Ddrkl gap [Moles/Vol]12.9 mmol/LFTrinity Health System Twin City Medical Centererum or plasma total cholesterol/high density lipoprotein (HDL) cholesterol mass rat Ordered By: Cyndi Addison on 09-97-9738Jepyoxubpbs.total/Cholesterol in HDL [Mass ratio]2.4 {ratio}[facility] HospitalComment on above:3.3 - 4.4 LOW RISK4.4 - 7.1 AVERAGE RISK7.1 - 11.0 MODERATE RISK>11.0 HIGH RISKMM TOMOSYNTHESIS SCREENING BIon 86-92[place], [place] [address] Mammography Report Signed Patient: CAMRYN WILLIAMSON MR#: [id number] : 1970 Acct:[id number] Age/Sex: 54 / F ADM Date: 09/25/24 Loc: MAMMO Attending Dr: Meek Mcrae D.O. Ordering Physician: Meek Mcrae D.O. Results: Date of Service: 09/25/24 Follow Up: Procedure(s): MM tomosynthesis screening BI Accession Number(s): [id number] cc: Meek Mcrae D.O.; Physician,Non-Staff Allan Patient Name: CAMRYN WILLIAMSON MR#: [id number] : 1970 Exam Date: 09/25/2024 Ordering Doctor: DR Meek Mcrae . RADIOLOGY REPORT PROCEDURE: MM TOMOSYNTHESIS SCREENING BI COMPARISON: MM TOMOSYNTHESIS SCREENING BI, 09/12/2023. MG MAMM CHARLES DIAG W CAD DIG, 02/22/2016. MG MAMM CHARLES SCRN W CAD DIG, 09/02/2013. INDICATIONS: Screening for malignant neoplasm Calculator Name NCI Breast Cancer Risk Assessment Tool 5 Year Breast Cancer Risk 0.80% Lifetime Breast Cancer Risk 5.30% Personal Breast Cancer No Personal Ovarian Cancer No Treatments None Family Cancers Father with lung cancer at age 65. LOCATION: [facility] BREAST COMPOSITION: The breasts are extremely dense, which lowers the sensitivity of mammography. FINDINGS: DIAGNOSTIC CATEGORY 2--BENIGN FINDING: RIGHT BREAST: No significant suspicious finding. Stable, chronic irregular fibroglandular tissue posterior upper-outer quadrant. No significant change has occurred. LEFT BREAST: No significant suspicious finding. Stable, chronic irregular fibroglandular tissue posterior upper-outer quadrant. No significant change has occurred. RECOMMENDATIONS: ROUTINE MAMMOGRAM AND CLINICAL EVALUATION IN 12 MONTHS. PLEASE NOTE: A NORMAL MAMMOGRAM DOES NOT EXCLUDE THE POSSIBILITY OF BREAST CANCER. A CLINICALLY SUSPICIOUS PALPABLE LUMP SHOULD BE BIOPSIED. Dictated by: Yang Tobar M.D. on 09/26/2024 at 08:40 Approved by: Yang Tobar M.D. on 09/26/2024 at 09:06 Dictated By: Yang Tobar M.D. Signed By: 09/26/24 0907 DD/ 0906 TD/TT: Concession Supervisor:TBHRadiology, Radiologist, MD - 09/26/2024 [place] [address] Mammography Report Signed Patient: CAMRYN WILLIAMSON MR#: [id number] : 1970 Acct:[id number] Age/Sex: 54 / F ADM Date: 09/25/24 Loc: MAMMO Attending Dr: Meek Mcrae D.O. Ordering Physician: Meek Mcrae D.O. Results: Date of Service: 09/25/24 Follow Up: Procedure(s): MM tomosynthesis screening BI Accession Number(s): [id number] cc: Meek Mcrae D.O.; Physician,Non-Staff Allan Patient Name: CAMRYN WILLIAMSON MR#: [id number] : 1970 Exam Date: 09/25/2024 Ordering Doctor: DR Meek Mcrae . RADIOLOGY REPORT PROCEDURE: MM TOMOSYNTHESIS SCREENING BI COMPARISON: MM TOMOSYNTHESIS SCREENING BI, 09/12/2023. MG MAMM CHARLES DIAG W CAD DIG, 02/22/2016. MG MAMM CHARLES SCRN W CAD DIG, 09/02/2013. INDICATIONS: Screening for malignant neoplasm Calculator Name NCI Breast Cancer Risk Assessment Tool 5 Year Breast Cancer Risk 0.80% Lifetime Breast Cancer Risk 5.30% Personal Breast Cancer No Personal Ovarian Cancer No Treatments None Family Cancers Father with lung cancer at age 65. LOCATION: [facility] BREAST COMPOSITION: The breasts are extremely dense, which lowers the sensitivity of mammography. FINDINGS: DIAGNOSTIC CATEGORY 2--BENIGN FINDING: RIGHT BREAST: No significant suspicious finding. Stable, chronic irregular fibroglandular tissue posterior upper-outer quadrant. No significant change has occurred. LEFT BREAST: No significant suspicious finding. Stable, chronic irregular fibroglandular tissue posterior upper-outer quadrant. No significant change has occurred. RECOMMENDATIONS: ROUTINE MAMMOGRAM AND CLINICAL EVALUATION IN 12 MONTHS. PLEASE NOTE: A NORMAL MAMMOGRAM DOES NOT EXCLUDE THE POSSIBILITY OF BREAST CANCER. A CLINICALLY SUSPICIOUS PALPABLE LUMP SHOULD BE BIOPSIED. Dictated by: Yang Tobar M.D. on 09/26/2024 at 08:40 Approved by: Yang Tobar M.D. on 09/26/2024 at 09:06 Dictated By: Yang Tobar M.D. Signed By: 09/26/24906 DD/ 5 TD/TT: Concession Supervisor: [facility] HealthcareRadiology Study observation (narrative)[facility] Healthcare TOMOSYNTHESIS SCREENING BIOrdered By: Radiologist Radiology on 65-40-1792[facility] Work Phone: IGP,APTIMA HPV,AGE GDLNon 47-98-0059LLR GDLN ACOG TESTINGNote.[facility] HealthcareComment on above:TESTS RESULT FLAG UNITS REF RANGE LAB Clinician Provided Cytology Information Source.............Vagina No. of containers..01 ThinPrep Vial Age Patriciao ACOG Maricruz... 28 01 FLAG LEGEND: L-Low Normal,H-High Normal,LL-Alert Low,HH-Alert High <-Panic Low,>-Panic High,A-Abnormal,AA-Critical Abnormal Performed at: 01 =[facility] [address] [address] Tosha Malcolm MD, HPV APTIMANegativeNegativeNOMS HealthcareComment on above:This nucleic acid amplification test detects fourteen high- risk HPV types (16,18,31,33,35,39,45,51,52,56,58,59,66,68) without differentiation. Performed at: = - [address] [id number] [employer] Air Traffic Control Specialist: Tosha Malcolm MD, Phone: [phone] Performed at: [address] [id number] [employer] Traffic [employer] Specialist: Tosha Malcolm MD, Phone: [phone] IGP, APTIMA HPV, RFX 16/18,45Note.NOMS HealthcareComment on above:TESTS RESULT FLAG UNITS REF RANGE LAB DIAGNOSIS: 02 NEGATIVE FOR INTRAEPITHELIAL LESION OR MALIGNANCY. Specimen adequacy: 02 Satisfactory for evaluation. Performed by: Mag Busby, Maintenance Machine Repairer ([facility]) . 02 Note: Note 02 The Pap [...] <-Panic Low,>-Panic High,A-Abnormal,AA-Critical Abnormal Performed at: [address] [address] Tosha Malcolm MD, SPATULA-ALONE VAGINA CLINISYNCNOOK HealthcareNo Panel Informationon [id number] [facility] Medicine Office/Clinic Noteon [id number] Medicine Office/Clinic NoteFami Medicine Office/Clinic Note HPI Staff Camryn is [...] Daily, # 90 tab(s), Refills(s) 0, [id number], 167, cm, 07/07/24 16:12:00 EDT, Height/Length [...] not intractable, without status migrainosus) Will do [facility] samples as able to. Patient responds very well to this. Ordered: escitalopram, 10 mg = 1 tab(s), Oral, Daily, # 90 tab(s), Refills(s) 0, Pharmacy: [facility] #[id number], 167, cm, 07/07/24 16:12:00 EDT, Height/Length [...] Daily, # 90 tab(s), Refills(s) 0, Pharmacy: [id number], 167, cm, 07/07/24 16:12:00 EDT, Height/Length [...] Daily, # 90 tab(s), Refills(s) 0, Pharmacy: [facility] #[id number], 167, cm, 07/07/24 16:12:00 EDT, Height/Length [...] Daily, # 90 tab(s), Refills(s) 0, [id number], cm, 07/07/24 16:12:00 EDT, Height/Length Dosing, 51.6, kg, 07/07/24 16:12:00 EDT, Weight Dosing Orders: metoprolol, 25 mg = 1 tab(s), Oral, Daily, # 30 tab(s), Refills(s) 0, [id number], cm, 06/05/24 9:44:00 EDT, Height/Length Dosing, 52.7, kg, 06/05/24 9:44:00 EDT, Weight Dosing metoprolol, 25 mg = 1 tab(s), Oral, Daily, # 90 tab(s), Refills(s) 1, [id number], cm, 06/05/24 9:44:00 EDT, Height/Length Dosing, 52.7, kg, 06/05/24 9:44:00 EDT, Weight Dosing Follow-up No qualifying data available Patient Education BMI for Adults Problem List/Past Medical History Ongoing Anxiety (more content not included)...[facility]ams County HospitalComment on above: Result Comment: Electronically Signed By: Landon Tomlinson MD\.br\Date and Time Signed: 07/07/24 16:45 EDTAmbulatory Visit Summaryon [id number] Visit SummaryAmbulatory Visit Summary CAMRYN WILLIAMSON :1970 Visit Date:06/05/2024 Ambulatory Visit Instructions Your Diagnosis HTN (hypertension) Migraine BMI less than 19,adult Smoker Your Care Team Attending Physician - Landon Tomlinson MD Primary Care Physician - Landon Tomlinson MD This Is Your Medications List ascorbic [...] Follow-Up Appointments 2023 1:00 PM EDT With: Davi ROBLES, Landon Pittman Where: [place] [id number]- Medications What How Much When Why Instructions Unchanged ascorbic acid (Vitamin C) Unchanged hydrochlorothiazide (hydrochlorothiazide 25 mg Tab) 1 Tablets By Mouth Every day MigraineHTN (hypertension) BMI 20.0-20.9, adult Smoker PVD (peripheral [...] you for choosing us for your care. [facility] Medicine Office/Clinic Noteon [id number] Medicine Office/Clinic NotePlunkett Memorial [facility] Medicine Office/Clinic Note HPI Staff Camryn is [...] Daily, # 30 tab(s), Refills(s) 0, Pharmacy: [facility] #[id number],167, cm, 06/05/24 9:44:00 EDT, Height/Length Dosing, 52.7, kg, 06/05/24 9:44:00 EDT, Weight Dosing rimegepant, 75 mg = 1 tab(s), Oral, Once, # 14 tab(s), Refills(s) 0, Pharmacy: [facility]/pharmacy #[id number], 167, cm, 06/05/24 9:44:00 EDT, Height/Length [...] virus vaccine, inactivated 08/28 (more content not included)...Normal Estrella [facility] InstituteComment on above:Result Comment: Electronically Signed By: Davi ROBLES, Landon Loomis.br\Date and Time Signed: 06/05/24 09:54 EDT Physician Referralon [id number] Referral [id number]#1.00TIFFNormalFisher [facility] InstituteFaames[facility] Medicine Office/Clinic Noteon [id number] Medicine Office/Clinic NoteHPI Staff Camryn is a 53 year old female presenting for acute visit Acute: rash on breast, ? shingles and feels she pulled a muscle in her shoulder Onset: started as a couple bumps/bites, then under the right breast and around the side, been thereabout a week and a half. some pain/burning on Then shampooed carpets the other day and her shoulder hurts, not sure if it's the muscle or if it'sthe bumps causing the shoulder pain Also spot [...] day(s), # 21 tab(s), Refills(s) 0, Pharmacy: [facility]/pharm[facility] #[id number], 167, cm, 05/05/24 18:15:00 EDT, Height/Length Dosing, 53.6, kg, 05/05/24 18:15:00 EDT, Weight Dosing Body Mass Index (BMI) documented 3008F Current tobacco smoker 1034F Depression Screening Negative 3352F [facility] External Ambulatory Referral Influenza [...] day(s), # 21 tab(s), Refills(s) 0, [id number], 167, cm, 05/05/24 18:15:00 EDT, Height/Length Dosing, 53.6, kg, 05/05/24 18:15:00 EDT, Weight Dosing Body Mass Index (BMI) documented 3008F Current tobacco smoker 1034F Depression Screening Negative 3352F [facility] External Ambulatory Referral Influenza [...] day(s), # 21 tab(s), Refills(s) 0, Pharmacy: [facility] #[id number], 167, cm, 05/05/24 18:15:00 EDT, Height/Length Dosing, 53.6, kg, 05/05/24 18:15:00 EDT, Weight Dosing Body Mass Index (BMI) documented 3008F Current tobacco smoker 1034F Depression Screening Negative 3352F [facility] [place] External Ambulatory Referral Influenza [...] day(s), # 21 tab(s), Refills(s) 0, [id number], cm, 05/05/24 18:15:00 EDT, Height/Length [...] day(s), # 21 tab(s), Refills(s) 0, Pharmacy: [facility] #[id number], 167, cm, 05/05/24 18:15:00 EDT, Height/Length [...] legs Historical No qualifying (more content not included)...[facility] Comment on above:Result Comment: Electronically Signed By: Davi ROBLES, Landon Loomis.br\Date and Time Signed: 05/05/24 18:25 EDTPatient Educationon 05-05-2024 Patient EducationCardiovascular Hypertension, Adult High blood pressure (hypertension) is [...] are some conditions that result in high bloodpressure. What increases the risk? Certain factors may make you more likely to develop high blood pressure. Some of these risk factorsare under your control, including: ? Smoking. ? [...] on the floor. The cuff of the bloodpressure monitor will be placed directly against the [...] one 1? oz glass (more content not included)...NormalFisher [facility] InstituteECG 12-Leadon 10-21-0876ZBC 12-[id number]#1.00TIFFNormal Estrella [facility] InstituteHeart and [facility]ascular Office/Clinic Noteon 04-04-2024 Heart and Vascular Office/Clinic NoteChief Complaint here to establish care - abn [...] PROCEDURE: Lexiscan nuclear stress test. REFERRING PHYSICIAN: Landon Tomlinson M.D. INDICATIONS: Coronary artery disease. PROCEDURE DETAILS: The patient was stressed according to the Lexiscan protocol without events. The patient received Lexiscan infusion and did not have any symptoms. The blood pressure and heart rate response were appropriate. EKG was normal sinus rhythm and normal EKG. During infusion there were noEKG changes. There was no arrhythmia. Recovery was normal. The patient received 9.2 mCi of Cardiolite for rest images and 29.7 mCi of Cardiolite for stress images. Review of raw images did not demonstrate motion or attenuation artifact. FINDINGS: Uptake of the tracer was homogeneous with no identifiable ischemia or infarction. The TIDratio was 1.26. Ejection fraction was 64%. End-diastolic volume was 80 mL. CONCLUSIONS: Negative Lexiscan nuclear stress test for ischemia or infarction. Borderline elevated TID at 1.26 of uncertain clinical significance. Due to elevated TID, overall this would be an intermediate-risk stress test. cc: Landon Tomlinson M.D. [1] Assessment/Plan 1. Equivocal stress test [...] Date Status influenza vir (more content not included)...[facility] Comment on above:Result Comment: Electronically Signed By: Quan ROBLES, Aubrey Amor\.br\Date and Time Signed: 04/04/24 11:14 EDTPhysician Orderon 04-04-2024 Physician [id number]#1.00TIFFAdams County HospitalAmbulatory Visit Summaryon [id number] Visit Summary CAMRYN WILLIAMSON :1970 Visit Date:04/03/2024 Ambulatory Visit Instructions Your Diagnosis HTN (hypertension) Migraine PVD (peripheral vascular disease) Decreased stamina Smoker BMI less than 19,adult Your Care Team Attending Physician - Landon Tomlinson MD Primary Care Physician - Landon Tomlinson MD This Is Your Medications List hydrochlorothiazide [...] Follow-Up Appointments 2023 9:30 AM EDT With: Davi ROBLES, Landon Pittman [facility] [place] Interpretation [facility] Medicine Office/Clinic Noteon [id number] Medicine Office/Clinic NoteHPI Staff Camryn is a 53 year old [...] Daily, # 90 tab(s), Refills(s) 0, Pharmacy: [facility][id number], 167, cm, 04/03/24 8:54:00 EDT, Height/Length Dosing, 53.5, kg, 04/03/24 8:54:00 EDT, Weight Dosing losartan, 100 mg = 1 tab(s), Oral, Daily, # 90 tab(s), Refills(s) 0, Pharmacy: [facility] #[id number], 167, cm, 04/03/24 8:54:00 EDT, Height/Length Dosing, 53.5, kg, 04/03/24 8:54:00 EDT, Weight Dosing CBC w/ Auto Diff Comprehensive Metabolic Panel [facility] [place] Internal Ambulatory Referral Lipid Panel 2. Migraine (G43.909: Migraine, unspecified, not intractable, without status migrainosus) - Needs samples - Out of [facility] - Will try ubrelvy Ordered: hydrochlorothiazide, 25 mg = 1 tab(s), Oral, Daily, # 90 tab(s), Refills(s) 0, Pharmacy: [facility] #[id number], 167, cm, 04/03/24 8:54:00 EDT, Height/Length Dosing, 53.5, kg, 04/03/24 8:54:00 EDT, Weight Dosing losartan, 100 mg = 1 tab(s), Oral, Daily, # 90 tab(s), Refills(s) 0, Pharmacy: [facility]/pharm[facility] #[id number], 167, cm, 04/03/24 8:54:00 EDT, Height/Length Dosing, 53.5, kg, 04/03/24 8:54:00 EDT, Weight Dosing CBC w/ Auto Diff Comprehensive Metabolic Panel Lipid Panel 3. PVD (peripheral vascular disease) (I73.9: Peripheral vascular disease, unspecified) - Pt is unsure where this diagnosis came from. - Will monitor Ordered: hydrochlorothiazide, 25 mg = 1 tab(s), Oral, Daily, # 90 tab(s), Refills(s) 0, Pharmacy: [facility] #[id number], 167, cm, 04/03/24 8:54:00 EDT, Height/Length Dosing, 53.5, kg, 04/03/24 8:54:00 EDT, Weight Dosing losartan, 100 mg = 1 tab(s), Oral, Daily, # 90 tab(s), Refills(s) 0, Pharmacy: [facility]/pharm[facility] #[id number], 167, cm, 04/03/24 8:54:00 EDT, Height/Length Dosing, 53.5, kg, 04/03/24 8:54:00 EDT, Weight Dosing CBC w/ Auto Diff Comprehensive Metabolic Panel [facility] [place] Internal Ambulatory Referral Lipid Panel NM Myocardial Spect Rest/Stress 1 Day 4. Decreased stamina (R53.83: Other fatigue) - Concerned there is underlying CAD - Sending to Cardio since she has an elevated TID Ordered: CBC w/ Auto Diff Comprehensive Metabolic Panel [facility] Internal Ambulatory Referral Lipid Panel NM Myocardial Spect Rest/Stress 1 Day 5. Smoker (F17.200: Nicotine dependence, unspecified, uncomplicated) - Discussed smoking cessation. - Pt is cutting down. Ordered: hydrochlorothiazide, 25 mg = 1 tab(s), Oral, Daily, # 90 tab(s), Refills(s) 0, Pharmacy: [facility]/pharmacy #[id number], 167, cm, 04/03/24 8:54:00 EDT, Height/Length Dosing, 53.5, kg, 04/03/24 8:54:00 EDT, Weight Dosing losartan, 100 mg = 1 tab(s), Oral, Daily, # 90 tab(s), Refills(s) 0, Pharmacy: [facility]/pharm[facility] #[id number], 167, cm, 04/03/24 8:54:00 EDT, Height/Length [...] Breast surgery, Dil (more content not included)... [facility] HospitalComment on above:Result Comment: Electronically Signed By: Davi ROBLES, Landon Loomis.br\Date and Time Signed: 04/03/24 09:25 EDTNurse Consultation Noteon [id number] Consultation NotePhysical Exam Vitals & Measurements T: 36.5 ?C(Oral) [...] virus vaccine, inactivated 08/28/2022 Recorded SARS-CoV-2 (COVID-19) mRNAMUL.ORD![id number] 07/31/2022 Recorded SARSCoV2 mRNA(iuxumhctf-vdis-hcutno) vac 03/01/2022 Recorded SARS-CoV-2 (COVID-19) mRNA BNT-162b2 [...] 09/28/2015 Recorded influenza virus vaccine, inactivated 07/27/2014 RecordedAdams County HospitalPhysician Referralon 28-63-4575Snptdlhua Referral [id number]#1.00TIFFAdams County HospitalNM Myocardial Spect Rest/Stress 1 Dayon 64-10-1623FA Myocardial Spect Rest/Stress 1 DayExam Date/Time: 03/27/2024 15:53 EDT Reason for Exam: I73.9;Other (please specify) Report DATE: 03/27/2024 PROCEDURE: Lexiscan nuclear stress test. REFERRING PHYSICIAN: Landon Tomlinson M.D. INDICATIONS: Coronary artery disease. PROCEDURE DETAILS: [...] would be an intermediate-risk stress test. cc: Landon Tomlinson M.D. FINAL REPORT Signed (Electronic Signature): 04/02/2024 9:27 pm Signed by: Quentin Roth MD Transcribed by: JOEY Technologist: MICHELLE Technical Comments Rest Dose (mCi Tc99m Cardiolite): 9.2 Stress Dose (mCi Tc99M Cardiolite): 29.7NoTriHealth Bethesda North HospitalConsent for Treatmenton [id number] for Treatment [id number]#1.00TIFMercy Health St. Elizabeth Boardman HospitalInsurance Correspondenceon 42-63-5632Vguzthipk Correspondence [id number]#1.00TIFFAdams County HospitalFaamesbury health center Medicine Office/Clinic Noteon [id number] Medicine Office/Clinic NoteI Staff Camryn is a 53 year old [...] she's bent over or on the ground workinggets up and gets really dizzy and when [...] decreased. She is currently managing them with Nurtec,finding it beneficial. Review of Systems PHQ Score [...] site) The patient is advised to take rgcq-idq-tjxtonr medication. Should there be no improvement, furthertesting and treatment will be conducted. 5. PVD (peripheral vascular disease) (I73.9: Peripheral vascular disease, unspecified) Considering her history of PVD and her current smoking habits, it is prudent to rule out the presence of coronary artery disease via a stress test, as this is the cause of her decreased stamina. Thisplan was thoroughly discussed with the patient, who concurred. 6. Body mass index (BMI) of 19 or less in adult (Z68.1: Body mass index [BMI] 19.9 or less, adult) Provided education on BMI. 7. Smoker (F17.200: Nicotine dependence, unspecified, uncomplicated) Instructed patient on smoking cessation. Portions of this record may have been created with voice recognition artificial intelligence software, specifically [employer] and or [employer]. Substitutions may have occurred due to the inherent limitations of voice recognition and artificial intelligence software. ATTESTATION: Documentation services were performed after patient or guardian consented to allow [employer] to record this visit. JERAMY student development specialist and provider reviewed before signing. JERAMY: [...] Dilatation, History of hystere (more content not included)...[facility] County HospitalComment on above:Result Comment: Electronically Signed By: Landon Tomlinson MD\.br\Date and Time Signed: 02/29/24 09:45 EDT\.br\Electronically Co-Signed By: Ezra Negron\.br\Date and Time Co-Signed: 02/25/24 13:40 EDTFamily Medicine Office/Clinic Noteon 73-29-4556Yldimz Medicine Office/Clinic NoteHPI Staff Camryn is a 53 [facility] Care: History:anxiety, carpal tunnel, depression, PVD, [...] migraines getting them daily, lives on excedrin formigraines, History of Present Illness Camryn Williamson is a 53-year-old female who presents for an establish care and blood pressure recheck. The patient's previous healthcare provider was Dr. Srinivasan. Upon waking, her blood pressure cukmhqan710/117 mmHg, which is significantly elevated. She abstains from coffee and soda, opting instead for water and Gatorade. It was only after her daughter gave that she became aware of her high blood pressure. Since then, she has been monitoring her blood pressure, which remains elevated. She istaking fais-bai-oiofehx calcium supplements for her osteoporosis condition. She [...] are significantly elevated. Initial treatment will begin withhydrochlorothiazide, followed by the addition of losartan after [...] with voice recognition artificial intelligence software, specifically [employer], [employer] and or [employer]. Substitutions may have occurred due to the inherent limitations of voice recognition and artificial intelligence software. ATTESTATION: Documentation services were performed after patient or guardian consented to allow [employer] to record this visit. JERAMY student development specialist and provider reviewed before signing. JERAMY: [...] Allergies aspirin (Unknown) S (more content not included)...[facility] County HospitalComment on above:Result Comment: Electronically Signed By: Landon Tomlinson MD\.br\Date and Time Signed: 01/15/24 18:21 EST\.br\Electronically Co-Signed By: Ezra Negron.br\Date and Time Co-Signed: 01/14/24 11:54 [facility] AUTO DIFFon 05-68-5867KGFO #0.0 103/ulNormal0.0-0.1The Parkwood HospitalComment on above:Performed By: #### CBC #### [facility] [address] [place] [address] Dr. Rommel RamirezBasophils/100 WBC (Bld)0.3 %Normal0.2-2.0[facility] Comment on above:Performed By: #### CBC #### [facility] [address] [place] [address] Dr. Rommel Garnett #0.1 103/ulNormal0.0-0.7The Parkwood HospitalComment on above: Performed By: #### CBC #### [facility] [address] [place] [address] Dr. Rommel Bellaosinophils/100 WBC (Bld)0.9 %Normal0.9-7.0[facility] Comment on above:Performed By: #### CBC #### [facility] [address] [place] [address] Dr. Rommel Bellarythrocyte distribution width (RBC) [Ratio]12.1 %Xxdrvk00.0-15.0 The Parkwood HospitalComment on above:Performed By: #### CBC #### [facility] [address] [place] [address] Dr. Rommel RamirezHematocrit (Bld) [Volume fraction]40.1 %Xyqyze11.0-48.0The Parkwood HospitalComment on above:Performed By: #### CBC #### [facility] [address] [place] [address] Dr. Rommel RamirezHemoglobin (Bld) [Mass/Vol]13.9 g/lOHnbsej99.0-16.0The [facility]wood HospitalComment on above:Performed By: #### CBC #### [facility] [address] [place] [address] Dr. Rommel Arceo #0.01 10e3/ulNormal0.00-0.03[facility] CenterComment on above:Performed By: #### CBC #### [facility] [address] [place] [address] Dr. Rommel Arceo %0.1 %Normal0.0-0.5The Parkwood HospitalComment on above: Performed By: #### CBC #### [facility] [address] [place] [address] Dr. Rommel Rees #2.2 103/ulNormal1.2-3.8The Parkwood HospitalComment on above:Performed By: #### CBC #### [facility] [address] [place] [address] Dr. Rommel Caryhocytes/100 WBC (Bld)32.4 %Fhuscg54.5-60.0The [facility]wood HospitalComment on above:Performed By: #### CBC #### [facility] [address] [place] [address] Dr. Rommel Davis DIFF REQNONormalThe Parkwood HospitalComment on above: Performed By: #### CBC #### [facility] [address] [place] [address] Dr. Rommel Benton (RBC) [Entitic mass]31.3 ylHmbwba12.7-34.0The [facility] HospitalComment on above:Performed By: #### CBC #### [facility] [address] [place] [address] Dr. Rommel Benton (RBC) [Mass/Vol]34.7 g/qQSluydy78.9-35.2The [facility] HospitalComment on above:Performed By: #### CBC #### [facility] [address] [place] [address] Dr. Rommel Benton (RBC) [Entitic vol]90.3 tCOafyku45.0-99.0The [facility] HospitalComment on above:Performed By: #### CBC #### [facility] [address] [place] [address] Dr. Rommel Bello #0.5 103/ulNormal0.3-0.8The [facility] HospitalComment on above:Performed By: #### CBC #### [facility] [address] [place] [address] Dr. Rommel Dominguezocytes/100 WBC (Bld)7.2 %Normal1.7-12.0[facility] Comment on above:Performed By: #### CBC #### [facility] [address] [place] [address] Dr. Rommel GarrettUT #3.9 103/ulNormal1.4-6.5The [facility] HospitalComment on above:Performed By: #### CBC #### [facility] [address] [place] [address] Dr. Rommel Garrettutrophils/100 WBC (Bld)59.1 %Lqgpeg63.0-75.0The [facility] HospitalComment on above:Performed By: #### CBC #### [facility] [address] [place] [address] Dr. Rommel Talet mean volume (Bld) [Entitic vol]9.4 fLCritically low 9.5-13.5The [facility] HospitalComment on above:Performed By: #### CBC #### [facility] [address] [place] [address] Dr. Rommel RamirezPLT349 103/smHblopo713-621Ncm [facility] HospitalComment on above: Performed By: #### CBC #### [facility] [address] [place] [address] Dr. Rommel RamirezRBC4.44 106/ulNormal4.20-5.40The [facility] HospitalComment on above:Performed By: #### CBC #### [facility] [address] [place] [address] Dr. Rommel RamirezWBC6.7 103/ulNormal4.0-11.0The [facility] HospitalComment on above: Performed By: #### CBC #### [facility] [address] [place] [address] Dr. Rommel RamirezFREE T3on 72-56-3073YZGB T32.78 pg/mlLNormal2.18-3.98The [facility] HospitalComment on above:Performed By: #### CMP, FT3, TSH #### [facility] [address] [place] [address] [address] Rommel Zimmerman T4on 44-78-0381Toiz T4 [Mass/Vol]0.86 ng/dLNormal0.76-1.46 The [facility] HospitalComment on above:Performed By: #### FT4 #### [facility] [address] [place] [address] [address] Rommel RamirezPROF 14(COMP METB)on 08-93-2103Hdjankl [Mass/Vol]3.9 g/dLNormal 3.4-5.0The [facility] HospitalComment on above:Performed By: #### CMP, FT3, TSH #### [facility] [address] [place] [address] Dr. Rommel RamirezAlbumin/Globulin [Mass ratio]1.3 {ratio}NormalThe Parkwood HospitalComment on above:Performed By: #### CMP, FT3, TSH #### [facility] [address] [place] [address] Dr. Rommel Jj [Catalytic activity/Vol]59 U/MKiupui81-272Kpt [facility] HospitalComment on above:Performed By: #### CMP, FT3, TSH #### [facility] [address] [place] [address] Dr. Rommel Giraldo [Catalytic activity/Vol]24 U/CCdvxwx00-17Bly [facility] HospitalComment on above:Performed By: #### CMP, FT3, TSH #### [facility] [address] [place] [address] [address] Rommel Andre gap [Moles/Vol]17.2 mmol/LNormalThe [facility] Comment on above:Performed By: #### CMP, FT3, TSH #### [facility] [address] [place] [address] Dr. Rommel Renee [Catalytic activity/Vol]22 U/DYtqgaw66-09Vxf [facility] HospitalComment on above:Performed By: #### CMP, FT3, TSH #### [facility] [address] [place] [address] Dr. Rommel RamirezBilirubin [Mass/Vol]0.4 mg/dLNormal0.2-1.0The [facility] Comment on above:Performed By: #### CMP, FT3, TSH #### [facility] [address] [place] [address] Dr. Rommel RamirezCalcium [Mass/Vol]9.0 mg/dLNormal8.5-10.1[facility] Comment on above:Performed By: #### CMP, FT3, TSH #### [facility] [address] [place] [address] Dr. Rommel RamirezChloride [Moles/Vol]106 mmol/QErlryz84-138[facility] Comment on above:Performed By: #### CMP, FT3, TSH #### [facility] [address] [place] [address] Dr. Rommel RamirezCO2 [Moles/Vol]23.4 mmol/DTqpuum16.0-32.0[facility] Comment on above:Performed By: #### CMP, FT3, TSH #### [facility] [address] [place] [address] Dr. Rommel RamirezCreatinine [Mass/Vol]0.92 mg/dLNormal0.55-1.02The [facility] HospitalComment on above:Performed By: #### CMP, FT3, TSH #### [facility] [address] [place] [address] Dr. Rommel BellaGFR-AF GERMAN>60Normal>=60The [facility] HospitalComment on above:Performed By: #### CMP, FT3, TSH #### [facility] [address] [place] [address] Dr. Rommel BellaGFR-NON AF GERMAN>60Normal>=60The [facility] HospitalComment on above:Performed By: #### CMP, FT3, TSH #### [facility] [address] [place] [address] Dr. Rommel RamirezGlobulin (S) [Mass/Vol]3.0 g/dLNormalThe [facility]wood HospitalComment on above:Performed By: #### CMP, FT3, TSH #### [facility] [address] [place] [address] Dr. Rommel RamirezGlucose [Mass/Vol]115 mg/dLCritically qdhc30-788Nsu [facility] HospitalComment on above:Performed By: #### CMP, FT3, TSH #### [facility] [address] [place] [address] Dr. Rommel RamirezPotassium [Moles/Vol]3.6 mmol/LNormal3.5-5.1[facility] Comment on above:Performed By: #### CMP, FT3, TSH #### [facility] [address] [place] [address] Dr. Rommel RamirezProtein [Mass/Vol]6.9 g/dLNormal6.4-8.2[facility] Comment on above:Performed By: #### CMP, FT3, TSH #### [facility] [address] [place] [address] Dr. Rommel RamirezSodium [Moles/Vol]143 mmol/TWijzoo918-592Rfc [facility] Comment on above:Performed By: #### CMP, FT3, TSH #### [facility] [address] [place] [address] Dr. Rommel RamirezUrea nitrogen [Mass/Vol]19.0 mg/dLCritically high7.0-18.0A[facility] Pike Medical CenterComment on above:Performed By: #### CMP, FT3, TSH #### [facility] [address] [place] [address] Dr. Rommel Diaz nitrogen/Creatinine [Mass ratio]20.7 mg/mgNormalThe [facility] HospitalComment on above:Performed By: #### CMP, FT3, TSH #### [facility] [address] [place] [address] Dr. Rommel Kauffman 02-37-2225VFP3.672 uIU/mLNormal0.358-3.740The [facility] HospitalComment on above:Performed By: #### CMP, FT3, TSH #### [facility] [address] [place] [address] Dr. Rommel Moya ACOG PANEL 2: 30 to 65on 08-22-2022..NormalR[facility]ide [facility] on above:Result Comment: Performed at: WBPerformed By: #### [id number] #### [facility] [address] [place] [address] Dr. Rommel RamirezAge Gdln ACOG Kdlwwrj40-93VbckseQtzAdams County Regional Medical CenterComment on above:Performed By: #### [id number] #### [facility] [address] [place] [address] Dr. Rommel RamirezDIAGNOSIS:CommentBarberton Citizens Hospital on above: Result Comment: NEGATIVE FOR INTRAEPITHELIAL LESION OR MALIGNANCY. SHIFT IN NICKOLAS SUGGESTIVE OF BACTERIAL VAGINOSIS. Performed at: WBPerformed By: #### [id number] #### [facility] [address] [place] [address] Dr. Rommel RamirezHPLorenzo AptimaNegativeNormalNegativeAdena Pike Medical CenterComselect specialty hospital-[facility] on above:Result Comment: This nucleic acid amplification test detects fourteen high-risk HPV types (16,18,31,33,35,39,45,51,52,56,58,59,66,68) without differentiation. Performed at: =GPerformed By: #### [id number] #### [facility] [address] [place] [address] Dr. Rommel RamirezMethodology:CommentBarberton Citizens Hospital on above: Result Comment: This liquid based ThinPrep(R) pap test was screened with the use of an image guided system. Performed at: WBPerformed By: #### [id number] #### [facility] [address] [place] [address] Dr. Rommel RamirezNote:CommentBarberton Citizens Hospital on above:Result Comment: The Pap smear is a screening test designed to aid in the detection of premalignant and malignant conditions of the uterine cervix. It is not a diagnostic procedure and should not be used as the sole means of detecting cervical cancer. Both false-positive and false-negative reports do occur. . Performed at: WBPerformed By: #### [id number] #### [facility] [address] [address] [address] Rommel RamirezPerformed by:CommentBarberton Citizens Hospital on above: Result Comment: Roxann Dillon, Maintenance Machine Repairer (ASCP) Performed at: WBPerformed By: #### [id number] #### [facility] [address] [address] [address] Rommel RamirezSpecimen adequacy:CommentMagruder Memorial HospitalComselect specialty hospital-ann arbor on above:Result Comment: Satisfactory for evaluation. Performed at: WBPerformed By: #### [id number] #### [facility] [address] [address] [address] Rommel Ramirez Vital Signs Date TimeVital SignValuePerforming EqhjtgzveEdufvtua16-49-3611 15:54-0500Body ciqhvj882.1 cmCorey Clementina DO Work Phone: [phone] [place], [place] [address]Yeqqenpwqf81-01-9145 15:54-0500Body mass index (BMI) [Ratio]21.13 kg/q6Xerzt Clementina DO Work Phone: [phone]11-03-2025 15:54-0500Body pupnyb51.61 kgCorey Clementina DO Work Phone: [phone])[facility] [place], [place] [address]Klucziqeba80-70-4471 15:54-0500Diastolic blood laaohfhk85 mm[Hg]Meek Clementina DO Work Phone: [phone] [place], [place] [address]Gvhjtfinvn56-15-4487 15:54-0500Systolic blood itkysqzo162 mm[Hg]Meek Clementina DO Work Phone: [phone])560-[address] [place], [place] [address]Idwossttkb38-19-1092 09:06-0400Body oyhrys297.37 cmJealexis Marinr SUPPLY ANALYST Work Phone: [facility]10-29-2025 09:06-0400 Body mass index (BMI) [Ratio]20.7 kg/d5JajcevykCyndi Fernandezrbacher SUPPLY ANALYST Work Phone: [facility]10-29-2025 09:06-0400 Body bhefzgshlzt41.3 [degF]Cyndi Fernandezramonajosephinehi SUPPLY ANALYST Work Phone: [phone] [place], [place] 1246110-29-2025 09:06-0400 Body mnnagv33.32 kgCyndi Marinr SUPPLY ANALYST Work Phone: [phone] [place], [place] 1246110-29-2025 09:06-0400 Diastolic blood ophyhjdg42 mm[Hg]Cyndi Fernandezramonajosephinehi SUPPLY ANALYST Work Phone: [phone])[address] [place], [place] 1246110-29-2025 09:06-0400 Systolic blood wsyfolxa689 mm[Hg]Cyndi Fernandezsophia SUPPLY ANALYST Work Phone: [phone] [place], [place] 1246110-01-2025 09:06-0400 Body .37 cmCyndi Fernandezramonaachehi SUPPLY ANALYST Work Phone: [phone] [place], [place] 1246110-01-2025 09:06-0400 Body mass index (BMI) [Ratio]20.6 kg/r9TsvpoukqCyndi Fernandezramonajosephiner SUPPLY ANALYST Work Phone: [phone] [place], [place] 1246110-01-2025 09:06-0400 Body pkhpadcrxcc82.5 [degF]Cyndi Fernandezsophia SUPPLY ANALYST Work Phone: [phone] [place], [place] 1246110-01-2025 09:06-0400 Body uvhlmk64.15 kgCyndi Addison SUPPLY ANALYST Work Phone: [phone] [place], [place] 1246110-01-2025 09:06-0400 Diastolic blood baapslog01 mm[Hg]Cyndi Azael SUPPLY ANALYST Work Phone: [phone] [place], [place] 1246110-01-2025 09:06-0400 Heart rate66 /minCyndi Azael SUPPLY ANALYST Work Phone: [phone] [place], [place] 1246110-01-2025 09:06-0400 SaO2% (BldA) [Mass fraction]100 %Cyndi Azael SUPPLY ANALYST Work Phone: [phone] [place], [place] 1246110-01-2025 09:06-0400 Systolic blood dtevllif145 mm[Hg]Cyndi Fernandezsophia CLOUD Work Phone: [facility]10-15-2024 10:29-0400 Body mass index (BMI) [Ratio]19.14 kg/a2Bvjsd Clementina DO Work Phone: [facility] HospitalRipniegqnh33-39-2415 10:29040Body rjfwew53.16 kgCorey Clementina DO Work Phone: [facility] HospitalKfyjzkofuw30-70-4919 10:29040Diastolic blood dtsiecmv62 mm[Hg]Meek Clementina DO Work Phone: [facility] HospitalNjllrsqowu87-91-5088 10:29-040Systolic blood nrcjsxni126 mm[Hg]Meek Clementina DO Work Phone: [facility] HospitalBosujcbgim10-22-3588 09:45-0400Diastolic blood mm[Hg]Aubrey AmbroseIneda Systems [facility]05-24-2024 09:45-0400Heart rate94 /minMikhail HalieIneda Systems [facility]05-24-2024 09:45-8373NqJ4% (BldA) [Mass fraction]99 %Aubrey [employer] EnergynIn[employer] [facility]05-24-2024 09:45-0400 Systolic blood ngnhesfc185 mm[Hg]A[employer]rey [employer] EnergyfernandoIneda Systems [facility] Encounters Encounter DateEncounter TypeCare ProviderFacilityStart: 09-14-2025 End: 37-77-1723kvjyfgtieqCYSSB FAZIONot AvailableStart: 09-14-2025 End: 42-33-1588Euqpwti encounter procedureCorey Clementina DO Work Phone: [facility] HealthcareStart: 09-14-2025 End: 48-70-3312Vdijjwrf preventive med est patient 40-64yrsCorey Clementina DO Work Phone: [facility] [place] OBGYNComment on above:Well woman exam with routine gynecological exam; Encounter for screening mammogram for malignant neoplasm of breast; Osteoporosis, post-menopausalStart: 09-14-2025 End: 17-62-4630Kfhlgh flowsheetCorey Clementina DO Work Phone: [facility] OBGYNStart: 09-14-2025 End: 03-68-3420Ffexqx flowsheetCorey Clementina DO Work Phone: [facility] [place] [facility]BGYNStart: 09-14-2025 End: 18-73-8407Biafmvtqz Result EncounterCorey Clementina DO Work Phone: [facility] External Department UnsolicitedStart: 09-09-2025 End: 72-11-4360dnoxjvhpaiBvzkcuat Rohrbacher SUPPLY ANALYST Work Phone: -[facility] Hospitaltart: 09-09-2025 End: 28-19-4303Cmexazh encounter procedureJennifer Rohrbacher SUPPLY ANALYST [facility] Work Phone: Start: 09-09-2025 End: 59-41-0091Cszpnyu encounter statusJennifer Rohrbacher SUPPLY ANALYST [facility] Centertart: 08-12-2025 End: 25-46-8896twasrperwrLxaqepdf Rohrbacher SUPPLY ANALYST Work Phone: [facility] Work Phone: Start: 08-12-2025 End: 44-23-4489Xxtktef encounter procedureJennifer Rohrbacher SUPPLY ANALYST [facility] Work Phone: Start: 09-26-2024 End: 90-27-7354Ztggfamjt Result EncounterCorey Clementina DO Work Phone: [facility] External Department UnsolicitedStart: 09-26-2024 End: 25-72-6454Fegtuklgw Result EncounterCorey Clementina DO Work Phone: [facility] External Department UnsolicitedStart: 08-26-2024 End: 50-51-2724Whmeku flowsheetCorey Clementina DO Work Phone: [facility] BCP OBStart: 08-26-2024 End: 96-24-6032Covgqe flowsheetCorey Clementina DO Work Phone: [facility] OBStart: 08-26-2024 End: 31-91-6280Yufivfleq Result EncounterCorey Clementina DO Work Phone: [facility] External Department UnsolicitedStart: 08-26-2024 End: 04-37-2874Qgdwvxh encounter procedureCorey Clementina DO Work Phone: [facility] Work Phone: Start: 08-26-2024 End: 10-64-8700Uxteptqg preventive med est patient 40-64yrsCorey Clementina DO Work Phone: [facility] OBComment on above:Well woman exam with routine gynecological exam; Breast cancer screening by mammogram; Postmenopausal state; Vaginal dryness, menopausalStart: 08-11-2024 End: 65-59-8240mllsqulsdeBpvyub E. RossFacility:FT FM BellevueStart: 07-07-2024 End: 64-28-5543prkqjjgmhkWymond E. RossFacility:[facility] BellevueStart: 06-05-2024 End: 53-52-0188qvxlqremivOrjfkc E. RossFacility:[facility] FM BellevueStart: 05-05-2024 End: 36-46-8415udpdefrfikFbbmaa E. RossFacility:[facility] BellevueStart: 04-04-2024 End: 35-49-0327Kwy-admission Lisbeth Glass [facility] Start: 04-04-2024 End: 24-75-6851gejtglkjnuTfirzc Toya RossFacility:FTMCStart: 04-04-2024 End: 50-10-8686Uoybspi encounter procedureAubrey Glass [facility] Start: 04-03-2024 End: 40-29-4326douvfookeeEprceq Toya TomlinsonFacility:[facility] BellevueStart: 03-27-2024 End: 11-13-5913iridbcquyoUgzezb Toya RossFacility:FTMCStart: 03-27-2024 End: 88-34-5229Urveuqt encounter Chalo Tomlinson [facility] Start: 03-25-2024 End: 23-53-1885euspzlqhgjQvrxyc Toya RossFacility:[facility] BellevueStart: 02-25-2024 End: 40-73-4768gqaoermibnHnbtim Toya RossFacility:[facility] BellevueStart: 01-14-2024 End: 72-82-0628etdjmychycVjihqy Toya RossFacility:[facility] FM BellevueStart: 01-01-2024 ambulatorySamuel RossFacility:[facility] FM BellevueStart: 10-09-2022 End: 64-96-6887lkwulxmuxbOI CHRISTI Jose RIVERAIGHTFacility:H6Pptsg: 08-15-2022 End: 36-90-2389ygdatdyxmwYW MEEK FAZIOFacility:H1 Procedures DateProcedureProcedure DetailPerforming ClinicianStart: 62-84-7987DPC,APTIMA HPV,AGE GDLNCorey Clementina DO Work Phone: Start: 00-33-4760MJ TOMOSYNTHESIS SCREENING BICorey Clementina DO Work Phone: Start: 65-10-8400ZVP,APTIMA HPV,AGE GDLNCorey Clementina DO Work Phone: Start: 98-47-0497YAA TEST, EXTERNALCorey Clementina DO Work Phone: Start: 69-88-5512BqhiqpstahdSwgkd Clementina DO Work Phone: Start: 34-20-2398Tgmdrtmzcat observation [Identifier] in Cervix by Cyto stainCorey Clementina TEE Work Phone: bilateral tubal ligationLandon Tomlinson Breast surgery (qualifier value)Landon Tomlinson Comment on above:has 4 breast, 2 removedDilatation (morphologic abnormality)Landon Tomlinson H/O: hysterectomySakipel Davi Comment on above:2018LaparoscopySakiley Tomlinson Plan of Treatment DateCare ActivityDetailAuthorStart: 09-20-2026 End: 10-45-5600Iwddtzl encounter iowkblumr65/09/2026 3:00 PM EST Procedure Visit ALAYNA LOONEY [address] [place], [place] [address] [phone] Meek Mcrae DO [address] [place], [place] [address] ALAYNA HOYTNStart: 08-21-2026 Screening for malignant neoplasm of cervixNOMS HealthcareStart: 09-14-2025 End: 15-83-9636Zxhvjub encounter bwdxhtvyd77/03/2025 3:40 PM EST Office Visit ALAYNA [place]ONEY [address] [place] [address] Meek Mcrae DO [address], [facility] ALAYNA ESTRADAtart: 09-14-2025 End: 87-81-3764YPP Skeletal system Views for bone densityDEXA bone density Imaging Routine Osteoporosis, post-menopausal Expected: 09/14/2025 (Approximate),Expires: 09/14/2026N[facility] HealthcareComment on above:Expected: 09/14/2025 (Approximate), Expires: 09/14/2026Start: 09-14-2025 End: 14-41-6506VY Breast - bilateral ScreeningBilateral screening mammogram Imaging Routine Encounter for screening mammogram for malignant neoplasm of breast Expected: 09/14/2025 (Approximate), Expires: 11/14/2026[facility] Work Phone: comment on above:Expected: 09/14/2025 (Approximate), Expires: 11/14/2026Start: 09-03-2025 End: 43-50-5748Gvzuvua encounter honacvson27/23/2025 11:00 AM EDT Office Visit [facility] [address] [phone] Meek Mcrae, DO [address] [facility] [address] [place] [address] [facility] OBStart: 95-06-3827Gbthtmhbb for malignant neoplasm of breastMammogramNOMS HealthcareStart: 08-26-2024 End: 50-14-3343HRE Skeletal system Views for bone densityDEXA bone density Imaging Routine Postmenopausal state Expected: 08/26/2024 (Approximate), Expires:08/26/2025[facility] HealthcareComment on above:Expected: 08/26/2024 (Approximate), Expires: 08/26/2025Start: 08-26-2024 End: 16-95-5788MC Breast - bilateral ScreeningBilateral screening mammogram Imaging Routine Breast cancer screening by mammogram Expected: 08/26/2024, Expires: 10/26/2025[facility] Work Phone: comment on above:Expected: 08/26/2024, Expires: 10/26/2025Start: 08-26-2024 End: 55-67-3134Ngovabr encounter oscfnifsq71/15/2024 10:00 AM EDT Office Visit [facility] [address] [facility] [place] [place] [phone] Meek Mcrae, DO [address] [place] [address] [facility] OBComment on above:ArrivedStart: 42-85-9337Uojrnsnuv vaccinationInfluenza Vaccine (#1)[facility] HealthcareStart: 37-05-3287Mooojvfgl for malignant neoplasm of cervixHPV/CotestNOSaint Luke's [facility] Hospital Start: 06-20-4675Rbmuuftcy for malignant neoplasm of colonPerry County Memorial Hospital Comprehensive metabolic 2000 panel - Serum or PlasmaOhiohealth Mansfield HospitalTHIN PREP TIS PAP AND HR HPV DNATHIN PREP TIS PAP AND HR HPV DNA Pathology and Cytology Routine Well woman exam with routine gynecological exam Ordered: 08/26/2024[facility] HealthcareComment on above:Ordered: 08/26/2024THIN PREP TIS PAP AND HR HPV DNATHIN PREP TIS PAP AND HR HPV DNA Pathology and Cytology Routine Well woman exam with routine gynecological exam Ordered: 09/14/2025[facility] HealthcareComment on above:Ordered: 09/14/2025[facility] Immunizations Immunization DateImmunizationNotesCare NigbjnvdOeyzqujc11-58-2951nxaxkikzd virus vaccine, unspecified formulationSpatricia Tomlinson [phone]-BrllrAshtabula General Hospital 61-32-2985vxjzcc vaccine recombinantSpatricia Tomlinson 337-2283Mtduhd-EoubtAshtabula General Hospital 01-91-1986wowrou vaccine recombinantSpatricia Tomlinson 178-2545Mtkssd-MtkplAshtabula General Hospital 08-52-2625acpjbjebipjs 20-valent conjugate vaccineSpatricia Tomlinson [phone]-MxkbnAshtabula General Hospital 82-73-5595psocdonlh virus vaccine, unspecified formulationSpatricia Tomlinson 043-9739Qgyqbx-AklagAshtabula General Hospital 52-01-7899WCBN-CoV-2 (COVID-19) mRNAMUL.ORD!n32253Ljkzkr Davi 675-3092Doyghm-FcjxbAshtabula General Hospital 12-50-3246HKSG-CoV-2 mRNA (hyxrgezaolz-qdwx-fudukzc) vaccineSamramos Tomlinson 332-2158Dxsuaq-ZxdizAshtabula General Hospital 54-54-3950LALT-CoV-2 (COVID-19) mRNA BNT-162b2 vaxSpatricia Tomlinson 590-2492Ovrcxa-BmqnyAshtabula General Hospital 86-54-1756ehbudxdqn virus vaccine, unspecified formulationSamramos Tomlinson 242-5636Dhikwe-EkyczAshtabula General Hospital 66-91-5347RYNM-CoV-2 (COVID-19) mRNA BNT-162b2 vaxSpatricia Tomlinson 363-8283Yzvtko-ZqxjaAshtabula General Hospital 27-06-7049VWVN-CoV-2 (COVID-19) mRNA BNT-162b2 vaxSpatricia Tomlinson 773-7245Tmouqd-SxkacAshtabula General Hospital 29-40-0702kmyokviba virus vaccine, unspecified formulationSamramos Tomlinson 733-0720Swbnmn-SypskAshtabula General Hospital 37-52-5100wlbsyxa toxoid, reduced diphtheria toxoid, and acellular pertussis vaccine, adsorbedSamumiya Tomlinson 126-5385Sogocf-YkaqbAshtabula General Hospital 98-64-8706vfrdaxzte virus vaccine, unspecified formulationSalinaramos Davi 384-1710Qztkni-HykllAshtabula General Hospital 42-59-4556iusqknatx virus vaccine, unspecified formulationSalinaramos Tomlinson 123-6856Dspntp-HopbwAshtabula General Hospital 35-79-0239mbmztznqp virus vaccine, unspecified formulationSalinaramos Tomlinson 673-3654Syaxtg-WacpzAshtabula General Hospital 91-57-8514rndtzvwui virus vaccine, unspecified formulationSalinaramos Dvai 808-9766Rshrds-TeqgdAshtabula General Hospital 65-28-0436sfwggcf toxoid, reduced diphtheria toxoid, and acellular pertussis vaccine, adsorbedSamumiya Tomlinson 689-2784Satfty-MsxltAshtabula General Hospital 27-21-3959qfgfzkozo virus vaccine, unspecified formulationSpatricia Tomlinson 026-0232Dlxlfw-EhkwkAshtabula General Hospital 69-94-0559bdebvjyqq virus vaccine, unspecified formulationSpatricia Tomlinson 029-1656Ydhxdw-TrdriAshtabula General Hospital 19-86-4912imoakzoru virus vaccine, unspecified formulationSamramos Tomlinson 041-7977Bglsfg-IvunoAshtabula General Hospital 74-54-2367kalnetbqz virus vaccine, unspecified formulationSpatricia Tomlinson 440-9063Pvumdi-XtxzyAshtabula General Hospital Payers DatePayer CategoryPayerPolicy ID2023MedicaidANTHEM BCBS MEDICAID [place] [id number] [id number] .[id number] ..034499.3.57[id number] .1.255983.3.57[id number] .1.415035.3.57[id number] 2.16.840.1.262166.3.57[id number] 2.16.840.1.859200.3.579.[id number] 2.16.840.1.467070.3.579.2.77155-76-4096Pzytpzb63375265 2.16.840.1.683753.3.579.2.21290-47-6601Nmcxqme59350910 2.16.840.1.268657.3.579.2.48785-18-5125Glpklkg79333444 2.16.840.1.607518.3.579.[id number] 2..0.1.684045.3.579.2.56593-93-7064Eqznyaq38099657 2.0.1.581673.3.579.2.42348-55-9077Yhqvcau61675673 2.0.1.215963.3.579.2.754459-01-5567Znujylg52419572032 Social History DateTypeDetailFacilityStart: 02-25-2024 End: 95-87-1967Efqseke smoking statusLight tobacco smoker (finding)[facility] BellevueStart: 06-23-2024 End: 80-71-8654Ofl Assigned At BirthFemalProMedica Memorial Hospitaltart: 06-23-2024 End: 15-43-1681Yuldqtq smoking status NHISSmokes tobacco dailyNOMS Healthcare History of tobacco useCigarette SmokerNOMS HealthcareStart: 06-23-2024 End: 30-20-8508Dmzjsctxn beverage intakeLifetime non-drinker (finding)[facility] HealthcareStart: 06-23-2024 End: 17-02-3462Yqepnkx of Social functionNOMS HealthcareStart: 99-10-7560Ovd assigned at birthNot on fileHEBER VALLEY [facility] HealthcareSexFemale (finding)[facility] Foundationtart: 75-59-7685Vht Assigned At [facility] HospitalFeVeterans Health Administrationtart: 61-11-2617WutIytlgdYMXG Healthcare Functional Status VempBbvofyehkcHzvfkuGwmvrtpw20-75-5584Vugilhmcde StatusN/AFisher - [facility] Clinical Notes 06-05-2024 to 09-14-2025 Note Date & WxwaYnzhVylfpspn43-71-4843 History of Present illness Narrative* Lila Gaviria, VILMA - 09/14/2025 3:40 PM EST Reason for Appointment: Patient ID: Camryn Williamson is a 55 y.o. female who presents [...] nursing note reviewed. Exam conducted with a sales account representative present. Vitals: Estimated body mass index is 21.13 kg/m as calculated from the following: Height [...] annual unless needed otherwise. Documented by Fabiana Bustlilo LPN on behalf of: Anuradha Boateng PA-C documented in this encounterPerry County Memorial HospitalDkiqamhbwy59-68-9948 Evaluation note* Diagnosis Onset Date Resolution Status Admit Date Anxiety acuteOctober 2024 8:57amDepressionacuteOctober 2024 8:57amDizziness acuteOctober 2024 8:57amHigh blood pressureacuteOctober 2024 8:57am Screening for colon canceracuteOctober 2024 8:57amStage 3 chronic kidney diseaseacuteOctober 2024 8:57amAnxietyacuteOctober 2024 8:57am DepressionacuteOctober 2024 8:57amDizzinessacuteOctober 2024 8:57am High blood pressureacuteOctober 2024 8:57amStage 3 chronic kidney disease acuteOctober 2024 8:57amWellness examinationacuteOctober 2024 8:57am [facility] Work Phone: 1([phone]) 755-131910-15-2024 History of Present illness Narrative* Tegan Ybarra, SHANE - 08/26/2024 10:00 AM EDT Reason for Appointment: Patient ID: Camryn Williamson [...] nursing note reviewed. Exam conducted with a sales account representative present. Vitals: Estimated body mass index is [...] she is doing well and has complaints. Papwas obtained without difficulty and patient given mammogram order to have scheduled/obtained. Pt states she is very avitia lately and gets irritated, Orders Placed This Encounter Procedures Bilateral screening mammogram DEXA bone density Follow Up: Patient is to return in one year for annual unless needed otherwise. Documented by Tegan Ybarra LPN on behalf of: Anuradha Boateng PA-C documented in this encounterPerry County Memorial HospitalVwobffllpb56-19-1308 NotePatient Education Nutrition BMI for Adults What is BMI? Body mass index (BMI) is a number that is calculated from a person's weight and height. BMI can help estimate how much of a person's weight is composed of fat. BMI does not measure body fat directly.Rather, it is an alternative to procedures that [...] your height. Both height and weight are measured,and the BMI is calculated from those numbers. This can be done either in [place] ([place] or metric measurements. Note that charts and online BMI calculators are available to help you find your BMI quickly and easily without having to do these calculations yourself. To calculate your BMI in [place] measurements: 1. Measure your weight in [...] meters squared number. In this example: 70 ?3.1 = 22.6. This is your BMI. What [...] for Disease Control and Prevention: www.cdc.gov ? [place] [employer]: www.heart.org ? National Heart, Lung, and Blood [place]: www.nhlbi.nih.gov Summary ? Body mass index (BMI) is a number that is calculated from a person's weight and height. ? BMI may help estimate how much of a person's weight is composed of fat. BMI can help identify those who may be at higher risk for certain medical problems. ? BMI can be measured using [place] measurements or metric measurements. ? BMI charts are used to identify whether you are underweight, normal weight, overweight, or obese. This information is not intended to replace advice given to you by your health care provider. Make sure you discuss any questions you have with your health care provider. Document Revised: 07/21/2020 Document Reviewed: 05/28/2020 Elsevier Patient Education ? 2022 [employer] 06-05-2024 NotePatient Education Cardiovascular Hypertension, Adult High blood pressure [...] are some conditions that result in high bloodpressure. What increases the risk? Certain factors may make you more likely to develop high blood pressure. Some of these risk factorsare under your control, including: ? Smoking. ? [...] on the floor. The cuff of the bloodpressure monitor will be placed directly against the [...] of wine (148 mL), (more content not included)...[facility] No data available for this section [facility] Future App[facility]ments Appointment Date:04/09/2024 10:15:00 AM Scheduled Provider: [facility] Type:CV Stress (FT) Appointment Date:05/09/2024 09:00:00 AM Scheduled Provider:Aubrey Glass MD [facility] [place] Appointment Type:Cardiology Follow Up (FT) Appointment Date:06/05/2024 09:30:00 AM Scheduled Provider:Landon Tomlinson MD Location:[facility] Appointment Type: Open Future Scheduled Tests Laboratory* CBC w/ Auto Diff 04/03/24 * Comprehensive Metabolic Panel 04/03/24 * Lipid Panel 04/03/24 Radiology* ECG Stress Exercise 04/09/24 [facility] Future Appointments Appointment Date:05/09/2024 09:00:00 AM Scheduled Provider:Aubrey Glass MD [facility] [place] Appointment Type:Cardiology Follow Up () Appointment Date:06/05/2024 09:30:00 AM Scheduled Provider:Landon Tomlinson MD Location:[facility] Appointment Type: Open Future Scheduled Tests Laboratory* CBC w/ Auto Diff 04/03/24 * Comprehensive Metabolic Panel 04/03/24 * Lipid Panel 04/03/24 [facility] Diagnosis Well woman exam with routine gynecological exam Routine gynecological examination Breast cancer screening by mammogram Postmenopausal state Asymptomatic postmenopausal status (age-related) (natural) Vaginal dryness, menopausal [facility] Diagnosis Onset Date Resolution Status Admit Date Anxiety acuteOctober 2024 8:57amDepressionacuteOctober 2024 8:57amDizziness acuteOctober 2024 8:57amHigh blood pressureacuteOctober 2024 8:57am [facility] Work Phone: Evaluation note* Diagnosis Well woman exam with routine gynecological exam Routine gynecological examination Encounter for screening mammogram for malignant neoplasm of breast Osteoporosis, post-menopausal Senile osteoporosis [facility] No data available for this section [facility] No data available for this section [facility]Reason for referral (narrative)No reason for referral information availableCommunity [facility] Hospital Work Phone: Summary Purpose Family History Relationship Condition Age at Onset Recorded Date/T kushal brother Diabetes mellitus Unknown Advance Directives Advance Directive Response Recorded Date/ Time Advance Directives No July 11:14am Chief Complaint and Reason for Visit Chief Complaint Admit Date Est Care/Discuss BW/Dizziness August 8:57am Reason for Visit Admit Date Anxiety August 12, 2025 8: 57am Depression August 12, 2025 8: 57am Dizziness August 12, 2025 8: 57am High blood pressure August 12, 2025 8: 57am Chief Complaint Admit Date Est Care/Discuss BW/Dizziness [...] 8:57am Wellness examination September 09, 2025 8:57am Additional Source Comments INFORMATION SOURCE (unrecogn ized section and content) DATE CREATED AUTHOR 10/14/2022 [facility] DATE CREATED AUTHOR AUTHOR'S ORGANIZ ATION 08/13/2024 [facility] DATE CREATED AUTHOR AUTHOR'S ORGANIZ ATION 09/15/2025 [facility] EPIC Patient Care team informatio n (unrecognized section and content) Team MemberRelationshipSpecialtyStart DateEnd Date Landon Tomlinson MD [address] [place] [address] PCP - [facility]08/26/24Team MemberRelationshipSpecialtyStart Date End Date Landon Tomlinson MD [address] [place] [facility] [place] [address] PCP - [facility]08/26/24Team MemberRelationshipSpecialtyStart Date End Date Landon Tomlinson MD [address] [facility], [place] [id number] PCP - [facility]08/26/24 Team Status: Active Member Role Status Dates Cyndi Addison APRN [employer] Primary Care Provider Active Team Status: Inactive Member Role Status Dates Cyndi Addison APRN [employer] Primary Care Provider Active Start: August 12, 2025 End: August 12, 2025Cyndi Addison APRN [employer]-CAttending ProviderActive Start: August 12, 2025 End: August 12, 2025 Team Status: Active Member Role/Relationship Status Dates Cyndi Addison APRN [employer] Primary Care Provider Active Team Status: Inactive Member Role/Relationship Status Dates Cyndi Addison APRN [employer] Primary Care Provider Active Start: August 12, 2025 End: August 12, 2025Cyndi Addison APRN [employer]CAttending ProviderActive Start: August 12, 2025 End: August 12, 2025 Team Status: Inactive Member Role/Relationship Status Dates Cyndi Addison APRN [employer] Primary Care Provider Active Start: August End: September 09, 2025Cyndi Addison APRN [employer]CAttending ProviderActive Start: September 09, 2025 End: September 09, 2025Team MemberRelationshipSpecialtyStart DateEnd Date Landon Tomlinson MD [address] [place] [address] PCP - [facility]08/26/24Te MemberRelationshipSpecialtyStart Date End Date Landon Tomlinson MD [address] [place] [address] PCP - [facility]08/26/24Te MemberRelationshipSpecialtyStart Date End Date Landon Tomlinson MD [address] [place] [address] [facility] - [facility]08/26/24Te MemberRelationshipSpecialtyStart Date End Date Landon Tomlinson MD [address] [place] [address] PCP - [facility]08/26/24 Reason for Visit (unrecogniz ed section and content) ReasonCommentsWell Women VisitReasonCommentsGynecologic Exam Goals (unrecognized section and content) Goals may be documented in a n alternate section FOR RECORDS PERTAINING TO PATIENTS WHO ARE [...] BE BASED ON THE PRIMARY CLINICAL RECORDS. [facility]. provides no warranty or guarantee of the accuracy or completeness of information in this document.
== END 2025-10-20 09:11 | disposition home or self-care (01) ==
LOC: RAD 09:10
PROVIDERS: PCP Nurse Practitioner Family; Visit Provider Obstetrics & Gynecology
DX: M81.0 Age-related osteoporosis without current pathological fracture (principal); Z12.31 Encounter for screening mammogram for malignant neoplasm of breast; Z80.1 Family history of malignant neoplasm of trachea, bronchus and lung; M85.88 Other specified disorders of bone density and structure, other site
CPT/HCPCS: 77063; 77067; 77080

== ENCOUNTER 2025-11-03 10:55 | Outpatient (OUT) | payer MEDICAID, SELFPAY ==
--- OUTSIDE RECORDS SUMMARY | 2025-11-03 05:51 | XMS_ITS | Continuity of Care Document ---
Author Organization [facility] Address [address] [place] [address] Phone Care Team Providers Care Farmer Cash Grain Name Role Phone Cyndi Addison APRN Primary Care Provider Cyndi Addison APRN Attending Provider Garth Mcrae DO Attending Provider Care Teams Patient Care Team Team Status: Active Member Role/Relationship Status Dates Cyndi Addison APRN [employer]IVERSITY L[employer]URER-C Primary Care Provider Active Visit Care Team Team Status: Inactive Member Role/Relationship Status Dates Cyndi Addison APRN [employer]IVERSITY L[employer]URER-C Primary Care Provider Active Start: August 12, 2025 End: August 12, 2025Cyndi Addison APRN UNIVERSITY LECTURER-CAttending ProviderActive Start: August 12, 2025 End: August 12, 2025 Visit Care Team Team Status: Inactive Member Role/Relationship Status Dates Cyndi Addison APRN UNIVERSITY LECTURER-C Primary Care Provider Active Start: August End: September 09, 2025Cyndi Addison APRN UNIVERSITY LECTURER-CAttending ProviderActive Start: September 09, 2025 End: September 09, 2025 Visit Care Team Team Status: Active Member Role/Relationship Status Dates Cyndi Addison APRN UNIVERSITY LECTURER-C Primary Care Provider Active Start: September Garth Mcrae DOAttending ProviderActiveStart: September 14, 2025 Patient Care Team Team Status: Inactive Member Role/Relationship Status Dates Cyndi Addison APRN UNIVERSITY LECTURER-C Primary Care Provider Active Start: November 032024 End: November 03, 2025Cyndi Addison APRN UNIVERSITY LECTURER-CAttending ProviderActive Start: November 03, 2025 End: November 03, 2025 Chief Complaint and Reason for Visit Chief Complaint Admit Date Est Care/Discuss BW/Dizziness August 8:57am 4 Week F/U September 09, 2025 8 :57am Med Check, Post Kidney Specialist Jena De tonyaber 2024 9:59am Reason for Visit Admit Date Anxiety August [...] blood pressure September 09, 2025 8 :57am History of substance abuse September 09, 2025 8:57am Normal weight (BMI 18.5-24.9) September 092024 8:57am Restless leg syndrome September 09, 2025 8:57am Stage 3 chronic kidney disease August 132024 8:57am Wellness examination September 09, 2025 8:57am Anxiety November 03, 2025 9:59am Depression November 03, 2025 9:59am Fall November 03, 2025 9:59am Left foot pain November 03, 2025 9:59am Syncope November 03, 2025 9:59am Reason for Referral Type Reason(s) Provider Provider Contact Information P rovider Address Start Date Anxiety Depression F41.9 - Anxiety disorder, unspecified,F32.A - Depression, soxbhddxieaY89.9 - Anxiety disorder, unspecified,F32.A - [facility] Allergies, Adverse Reactions, Alerts Allergen Type Severity Reaction Last Updated Verified Status No Known Allergies Allergy Unknown November 03, 2025 10:01amYesActive Social History Smoking Status Status Start Date End Date Date of Observa tion Smokes tobacco daily (finding) August 12, 2025 9:20am Observation Status Observation Response Date of Response Legal Sex Female (finding) Sex Assigned At BirthFemaleSept1969 Family History Relationship Condition Age at Onset Recorded Date/T kushal brother Diabetes mellitus Unknown Problems Active Problems Problem Diagnosis/Recorded Date Onset Date Stat us Normal weight (BMI 18.5-24.9) September 09, 2025 9:46a m Unknown Active Screening for colon cancer August 12, 2025 12:32pm U nknown Active Dizziness August 12, 2025 8:30am Unknown Act soham Sleep disturbances August 14, 2025 9:52am Unknown Active Stage 3 chronic kidney disease August 13, 2025 9:12a m Unknown Active Anxiety August 12, 2025 8:17am Unknown Act soham Hypertensive chronic kidney disease with stage 1 through stage 4 chronic kidney disease, or unspecified chronic kidney disease October 28, 2025 2:36pm Unknown Active Depression August 12, 2025 8:17am Unknown Act soham Wellness examination September 09, 2025 8:40am Unknown Active Nephrolithiasis October 28, 2025 2:36pm Unknown Active Restless leg syndrome September 09, 2025 9:34am Unknow n Active Syncope November 03, 2025 10:35am Unknown Active History of substance abuse September 09, 2025 9:37am U nknown Active Left foot pain November 03, 2025 10:22am Unknown Active High blood pressure August 12, 2025 8:17am Unknown Active Fall November 03, 2025 10:22am Unknown Active Medications Medication Status Dose Units Route Directions Qty Days Refills S tart Date Stop Date End Date Reason(s) Instructions Adherence Trazodone 150 mg tablet Active 150 MG PO Daily at bedtim e as needed for sleep 90 90 1 August 14 9:51am Disturbance in sleep behavior Sleep disorder, unspecifiedComplies with drug therapyBupropion Hcl (Wellbutrin Sr) 150 mg tablet sustained-release 12 paBfniluacttod880YATNKwfly91045Lkjmeyyl 2024 11:01amDecember 2024 10:32amDepression Depression, unspecifiedRopinirole 0.25 mg tabletActive0.25MGPODaily at siebwks46 300December 2024 11:01amadminister 1-3 hours before bedtimeComplies with drug therapyLosartan-Hydrochlorothiazide 100-25 mg mslzzeWtnggujwumog2SCYLJIrrxz August 11, 2025 11:00pmOctober 2024 8:16amTrazodone 150 mg tablet Kioibglaezyu868SXGHBzsqi at bedtime as neededSeptember 2024 11:00pmOctober 2024 9:52amBuspirone 10 mg qpqremGhpqpqocowav56ZMDNPjixa times daily August 11, 2025 11:00pmOctober 2024 8:37amHydrochlorothiazide 25 mg opsywqInqhgvqpfslc68AEHVTtumeOrrxzxtvw 2024 11:00pmOctober 2024 8:29amMultivitamin With Minerals (Multiple Vitamin-Minerals) mpcpwjPjlpel4VIZYP DailySept2024 11:00pmComplies with drug therapyLosartan 100 mg tuvchpVezsblflffgf589TCECTfikhAoqmiapsq 30th, 2025 11:00pmOctadventhealth [facility] 2024 8:29amEscitalopram Oxalate 20 mg wrkerhZzgmdovcnhrh35NONKTjaohYbhjldraw 2024 11:00pmOctober 2024 8:37amHydrochlorothiazide 25 mg tablet Ntkghfetkvsq58GJWAVacebVocjbgs 2024 11:00pmOctober 2024 8:37am Losartan 100 mg jqgbihMcyuikpbnfco327CPEJVdfspKjwvqcq 2024 11:00pmOctober 2024 8:37amHydrochlorothiazide 12.5 mg zmgwmwGnamdd55.9ENNDLwigf37676 September 09, 2025 8:34amHypertension Essential (primary) hypertensionComplies with drug therapyEscitalopram Oxalate 20 mg xvremoVczesl55BPRYPzeww85052Hazxukl 2024 8:34amDepression Anxiety Depression, unspecified Anxiety disorder, unspecifiedComplies with drug therapyBuspirone 10 mg tablet Pjypae12NHQGTkqwq times dctbw536723Lfhmqvc 2024 8:34amAnxiety Anxiety disorder, unspecifiedComplies with drug therapyLosartan 100 mg tablet Hdwzef478FREPVkrvz92345Fltmvnd 2024 8:36amHypertension Essential (primary) hypertensionComplies with drug therapyRopinirole 0.25 mg tabletDiscontinued0.25MGPODaily at idrpdyz28953Rfghjoe 28th, 2025 11:00pm October 20, 2025 11:01amadminister 1-3 hours before bedtimeBupropion Hcl (Wellbutrin Sr) 150 mg tablet sustained-release 12 ocYgimzpvwdiyu589WGQXFhsdq75 300October 2024 11:00pmDeceer 2024 11:01amDepression Depression, unspecifiedCalcium Carbonate (Calcium 500) 500 mg calcium (1,250 mg) tablet,qypshyfvInwtft3889GWPXHgkjsLehcuufm 2024 12:00amComplies with drug therapyCholecalciferol (Vitamin D3) 25 mcg (1,000 unit) wblaityBsyhxu23CNEOV DailyDeceer 2024 12:00amComplies with drug therapyCariprazine (Vraylar) 1.5 mg capsuleActive1.6NQWVIgfsi16408Lkosohoe 2024 12:00amDepression Depression, unspecifiedComplies with drug therapy Relevant Diagnostic Tests and/or Laboratory Data Laboratory Results Test Collection Date/Time Result Date/Time Result Interpretation Reference Range Result Comment Performing Site Ferritin August 12, 2025 9:20am August 12, 2025 9:20 am 87.0 ng/mL 8.0-252.0Iron SaturationOct2024 9:20amOct2024 9:20am54.0 % Thyroid Stimulating Hormone 3rd GenAugust 12, 2025 9:20amOct2024 9:20am2.845 u[iU]/mL0.358-3.740Cholesterol/HDL RatioOct2024 9:20am August 12, 2025 9:20am2.43.3 - 4.4 LOW RISK4.4 - 7.1 AVERAGE RISK7.1 - 11.0 MODERATE RISK>11.0 HIGH RISKAnion GapOct2024 9:20amOct2024 9:20am12.9Basophils # (Auto)August 12, 2025 9:20amOctober 2024 9:20am0.0 10 3/uL0.0-0.1Reference Lab Test Patient AgeSeptember 14, 2025 3:45pmSeptember 14, 2025 3:45pmNote.TESTS RESULT FLAG UNITS REF RANGE LAB Clinician Provided Cytology Information Source.............Vagina No. of containers..01 ThinPrep VialAge Algo ACOG Maricruz... 3065 FLAG LEGEND: L- Low Normal,H-High Normal,LL-Alert Low,HH-Alert High <-Panic Low,>-Panic High,A-Abnormal,AA-Critical Abnormal Performed at:[address] [address] Tosha Malcolm MD, Qhuy LevelOct2024 9:20amOct2024 9:02by381.0 ug/dL50.0-170.0Cholesterol LevelOct2024 9:20amOct2024 9:62ms454 mg/dL<=200Albumin/Globulin RatioOct2024 9:20am August 12, 2025 9:20am1.3Basophils (%) (Auto)August 12, 2025 9:20amOct2024 9:20am0.3 %0.2-2.0HPV High Risk Other CommentSeptember 14, 2025 3:45pm September 14, 2025 3:45pmNoteAbnormal (applies to non-numeric results).TESTS RESULT FLAG UNITS REF RANGE LAB DIAGNOSIS: [A] 02 EPITHELIAL CELL ABNORMALITY. ATYPICAL SQUAMOUS CELLS OF UNDETERMINED SIGNIFICANCE (ASC-US).Specimen adequacy: 02 Satisfactory for evaluation. No endocervical component is identified.Performed by: 02 Dahiana Barbour, Primary Care Nurse Practitioner (ASCP)Electronically si... 02 Renu Milladr MD, Pathologist. 02Pathologist ICD10: 02 R87.610Note: Note 02 The Pap smear is a screening test designed to aid in the detection of premalignant and malignant conditions of the uterine cervix. It is not a diagnostic procedure and should not be used as the sole means of detecting cervical cancer. Both false-positive and false-negative reports do occur.Test Methodology: Note 02 This liquid based ThinPrep(R) pap test was interpreted using the [employer](R) GenSpaceClaim(TM) Cervical Algorithm whole slide imaging system.HPV Genotype Reflex Note 02 Criteria not met, HPV Genotype not performed. FLAG LEGEND: L-Low Normal,H-High Normal,LL-Alert Low,HH-Alert High <-Panic Low,>- Panic High,A-Abnormal,AA-Critical Abnormal Performed at:02 [facility] [address] [place] [address] Tosha Malcolm MD, Gdhst Iron Binding CapacityOctober 2024 9:20amOctober 2024 9:45hw813.0 ug/dL Below low sodvqz485.0-450.0HDL CholesterolOct2024 9:20amOct2024 9:20am66 mg/dLAbove high uleafp51-02> or =60 mg/dl - LOW CARDIOVASCULAR RISK<40 mg/dl - HIGH CARDIOVASCULAR RISKAlbuminOct2024 9:20amOct2024 9:20am3.8 g/dL3.4-5.0Eosinophils # (Auto)August 12, 2025 9:20am August 12, 2025 9:20am0.0 10 3/uL0.0-0.7HPV Genotype SourceNovember 2024 3:45pmNovember 2024 3:45pmNegativeNegativeThis nucleic acid amplification test detects fourteen high-risk HPV types (16,18,31,33,35,39,45,51,5 2,56,58,59,66,68)without differentiation.Performed at: =[address] [id number] Director: Tosha Malcolm MD, Phone: [phone] at: [address] [id number] Director: Tosha Malcolm MD, Phone: [phone] Cholesterol, CalculatedOct2024 9:20amOct2024 9:20am80.0 mg/dL<100 mg/dl SUJJKGS913-287 mg/dl NEAR OR ABOVE RAHDKLY893-434 mg/dl BORDERLINE MTJB691-453 mg/dl HIGH>190 mg/dl VERY HIGHAlkaline PhosphataseOct2024 9:20amOct2024 9:20am50 U/R69-108Ausjinkiadk (%) (Auto) August 12, 2025 9:20amOct2024 9:20am0.8 %Below low normal0.9-7.0 Triglycerides LevelOctober 2024 9:20amOct2024 9:20am54 mg/dL<=150 Alanine Aminotransferase (ALT/SGPT)August 12, 2025 9:20amOctober 2024 9:20am18 U/N38-81PtxvrwmzsuWsmmggz 2024 9:20amOctober 2024 9:20am30.9 %Below low .0-48.0VLDL CholesterolOct2024 9:20amOct2024 9:20am10.8 mg/dLAspartate Amino Transf (AST/SGOT)August 12, 2025 9:20am August 12, 2025 9:20am22 U/A42-67NbaasebzstLwyziiz 1st, 2025 9:20amOct2024 9:20am11.0 g/dLBelow low bsjulm28.0-16.0BUN/Creatinine RatioOctober 2024 9:20amOctober 2024 9:20am11.8Immature Granulocyte # (Auto)August 12, 2025 9:20amOctober 2024 9:20am0.00 10 3/uL0.00-0.03Blood Urea NitrogenOctober 2024 9:20amOctober 2024 9:20am16.0 mg/dL7.0-18.0 Immature Granulocyte % (Auto)August 12, 2025 9:20amOctober 2024 9:20am0.0 %0.0-0.5Calcium LevelOctober 2024 9:20amOctober 2024 9:20am9.0 mg/dL 8.5-10.1Lymphocytes # (Auto)August 12, 2025 9:20amOctober 2024 9:20am1.4 10 3/uL1.2-3.8Chloride LevelOctober 2024 9:20amOctober 2024 9:88cb715 mmol/T65-485Hqqsicadbao (%) (Auto)August 12, 2025 9:20amOctober 2024 9:20am39.1 %20.5-60.0Carbon Dioxide LevelOctober 2024 9:20amOctober 2024 9:20am27.0 mmol/L21.0-32.0Mean Corpuscular HemoglobinOctober 2024 9:20amOctober 2024 9:20am31.5 pg26.7-34.0CreatinineOctober 2024 9:20am August 12, 2025 9:20am1.36 mg/dLAbove high normal0.55-1.02Mean Corpuscular Hemoglobin ConcentOctober 2024 9:20amOctober 2024 9:20am35.6 g/dLAbove high jcylbn69.9-35.2Estimated GFR ()August 12, 2025 9:20am August 12, 2025 9:57ll78Mxmdl low normal>=60 mL/min/1.73m 2Mean Corpuscular VolumeOct2024 9:20amOctober 2024 9:20am88.5 fL81.0-99.0Estimated GFR (Non- AmericanOct2024 9:20amOctober 2024 9:51xq74Maggu low normal>=60 mL/min/1.73m 2Monocytes # (Auto)August 12, 2025 9:20amOctober 2024 9:20am0.3 10 3/uL0.3-0.8GlobulinOct2024 9:20amOctober 2024 9:20am2.9 g/dLMonocytes (%) (Auto)August 12, 2025 9:20amOctober 2024 9:20am9.4 %1.7-12.0Glucose LevelOct2024 9:20amOctober 2024 9:20am85 mg/lX91-851Plkb Platelet VolumeOctober 2024 9:20amOctober 2024 9:20am9.5 fL9.5-13.5Potassium LevelOct2024 9:20amOctober 2024 9:20am3.9 mmol/L3.5-5.1Neutrophils # (Auto)August 12, 2025 9:20amOctober 2024 9:20am1.8 10 3/uL1.4-6.5Sodium LevelOct2024 9:20amOctober 2024 9:80pl205 mmol/E884-320Bnsfqbwpzko (%) (Auto)August 12, 2025 9:20am August 12, 2025 9:20am50.4 %43.0-75.0Total BilirubinOct2024 9:20am August 12, 2025 9:20am0.5 mg/dL0.2-1.0Platelet CountOct2024 9:20am August 12, 2025 9:68rs451 10 3/vZ735-986Tltps ProteinOct2024 9:20am August 12, 2025 9:20am6.7 g/dL6.4-8.2Red Blood CountOct2024 9:20am August 12, 2025 9:20am3.49 10 6/uLBelow low normal4.20-5.40Red Cell Distribution WidthOct2024 9:20amAugust 12, 2025 9:20am12.1 % 11.0-15.0Corrected White Blood CountOct2024 9:20amAugust 12, 2025 9:20am3.6 10 3/uLBelow low normal4.0-11.0 Vital Signs Vital Reading Result Reference Range Collection Date/Time Height 65.5 [in_i] August 12, 2025 8:17eqRzkrpv28.15 kgAugust 12, 2025 8:06amBody Temperature 96.5 [degF]97.6-99.0August 12, 2025 8:06amHeart Rate66 /ahk87-318AwljiysAugust 12, 2025 8:06amOxygen saturation by Pulse qdlxmoix644 %95-100August 12, 2025 8:06amBP Kymarvgs501 mm[Hg]100-140August 12, 2025 8:06amBP Ymmbqrjkh21 mm[Hg] 60-100August 12, 2025 8:06amBMI (Body Mass Index)20.6 kg/l2DmngtmiAugust 12, 2025 8:69zwJwkqvq01.5 [in_i]September 09, 2025 8:96ooPkwrrz16.32 kgSeptember 09, 2025 8:06amBody Ucxdtoxffuw66.3 [degF]97.6-99.0September 09, 2025 8:06amBP Systolic 114 mm[Hg]100-140[facility] 2024 8:06amBP Csfodvmig63 mm[Hg]60-100October 2024 8:06amBMI (Body Mass Index)20.7 kg/a5Zlopbdd 2024 8:06amHeight 65.5 [in_i]November 03, 2025 10:72vdTjfpwl93.60 kgDeceer 2024 10:02am Body Zviaohyjpfo64.5 [degF]97.6-99.0Deceer 2024 10:02amHeart Rate70 /min 60-100Deceer 2024 10:02amOxygen saturation by Pulse %95-100 November 03, 2025 10:02amBP Swlolnjy482 mm[Hg]100-140[facility] 20[facility] 10:02amBP Hseplezsb37 mm[Hg]60-100Deceer 2024 10:02amBMI (Body Mass Index)20.8 kg/w8Ubuxuczk 2024 10:02am Advance Directives Advance Directive Response Recorded Date/ Time Advance Directives No July 10:14am Insurance Providers Guarantor Zuleyma Dowling Address [address] [place] [id number] Info.Home Phone: Coverage Status Update:2025 Payer Group Member ID Coverage Type Subscriber Relationship to Subscriber Effective Date Expiration Date Tonio MARIO/NATASHA [id number] Meacham , D Id: [id number] [address] [place] [address] Home Phone: [facility] [id number] Meacham , D Id: [id number] [address] [place] [address] Home Phone: Self Encounters Encounter Location(s) Arrival/Admit Date Discharge/Departure Date Discharge/Departure Disposition Provider(s) Departed Physician/ Provider Office Visit -[facility] August 12, 2025 8:57am August 12, 2025 9:50am Discharged to home care or self care (routine discharge) Cyndi Addison APRN CNP Departed Physician/ Provider Office Visit -[facility] September 09, 2025 8:57am September 09, 2025 9:50am Discharged to home care or self care (routine discharge) Cyndi Addison APRN CNP Non-patient / Non-visit -[facility] N ovember 2024 3:45pm Garth YioDeparted Physician/Provider Office Visit-[facility] November 03, 2025 9:59amDecember 2024 10:46amDischarged to home care or self care (routine discharge)Cyndi Addison APRN CNP Recent Diagnosis Onset Date Admit Date Anxiety Unknown August 12 8:57am Depression Unknown August 12 8:57am Dizziness Unknown August 12 8:57am High blood pressure Unknown August 12, 2025 8:57am Screening for colon cancer Unknown Octob er 2024 8:57am Stage 3 chronic kidney disease Unknown O ctober 2024 8:57am Anxiety Unknown September 09 8:57am Depression Unknown September 09 8:57am Dizziness Unknown September 09 8:57am High blood pressure Unknown August 8:57am History of substance abuse Unknown Octob er 2024 8:57am Normal weight (BMI 18.5-24.9) Unknown Oc tober 2024 8:57am Restless leg syndrome Unknown September 092024 8:57am Stage 3 chronic kidney disease Unknown O ctober 2024 8:57am Wellness examination Unknown August 8:57am Anxiety Unknown November 03, 025 9:59am Depression Unknown November 03, 025 9:59am Fall Unknown November 03, 025 9:59am Left foot pain Unknown November 03, 2 025 9:59am Syncope Unknown November 03, 025 9:59am Assessments Diagnosis Onset Date Resolution Status Admit Date Anxiety acuteOctober 2024 8:57amDepressionacuteOctober 2024 8:57amDizziness acuteOctober 2024 8:57amHigh blood pressureacuteOctober 2024 8:57am Screening for colon canceracuteOctober 2024 8:57amStage 3 chronic kidney diseaseacuteOctober 2024 8:57amAnxietyacuteOctober 2024 8:57am DepressionacuteOctober 2024 8:57amDizzinessacuteOctober 2024 8:57am High blood pressureacuteOctober 2024 8:57amHistory of substance abuseacute September 09, 2025 8:57amNormal weight (BMI 18.5-24.9)acuteOctober 2024 8:57amRestless leg syndromeacuteOctober 2024 8:57amStage 3 chronic kidney diseaseacuteOctober 2024 8:57amWellness examinationacuteOctober 2024 8:57amAnxietyacuteDecember 2024 9:59amDepressionacuteDecember 2024 9:59amFallacuteDecember 2024 9:59amLeft foot painacuteDeceer 2024 9:59amSyncopeacuteDecember 2024 9:59am Plan of Treatment [facility] 9:18amTo goal Stop taking the 2nd does of [...] labs. Will obtain ultrasound of kidneys from [facility] Author Cyndi Addison [facility]oredOctober 2024 9:46amTo goal Decrease HCTZ to 12.5mg due to still having some dizziness and blood pressure in office was 114 systolic. Prior to your visit today we reviewed [...] your compliance. Continue Lexapro, trazodone and BuSpar. Will add Wellbutrin Given phone number for [facility]. Patient is not suicidal or homicidal at [...] Has an appt with Nephrology in October Notes improved but still happens at times, will decrease HCTZ to 12.5mg. Personalized health advice was given for screenings discussed and provided. Advanced care planning reviewed and/or information given as requested. Additional counseling was provided here today in regards to general topics regarding health education were discussed in detail. All preventative issues were discussed including remaining a nonsmoker, colorectal screening, the importance of proper sleep for brain health maintenance, maintaining a heart-healthy balanced diet, recognizing and addressing signs of anxiety and depression, maintaining positive relationships with family and friends. Will start Ropinirole Call in 4 weeks to determine effectiveness and then will see in office in 2 months. Given information for [facility] to call to get established with a counselor, because she cannot see the one that she was seeing at [facility]. . Continue to attend meetings. Future Tests Future scheduled test information is unavailable Pending Tests Test Name Ordered Date Scheduled Date Comprehensive Metabolic Panel August 12, 2025 8:29am XR foot LT min 3V*November 03, 2025 10:21am Future Visits Future appointment information is unavailable Future Procedures Procedure Name Ordered Date Scheduled Date AMB Cologuard August 12, 2025 12:31pm Lipid PanelOct2024 8:29am Future Medications Future medication information is unavailable Patient Instructions Patient instructions are unavailable Hospital Discharge Instructions Ambulatory Orders* Referral to Psychiatry Time Frame: 11/03/25, Location: None Selected
--- OUTSIDE RECORDS SUMMARY | 2025-11-03 11:00 | XMS_ITS | Encounter Summary ---
Author Organization [facility] Address [address] [place] [address] Care Team Providers Care Agency Cashier Name Role Phone Landon Tomlinson MD Primary Care Provider [phone] Encounter Details DateTypeDepartmentCare Team (Latest Contact Info)Hpgxlfvwvhx00/18/2025Telephone [facility] [address] [place] [address] Zeny Francis NP [address] [place] [address] Social History Tobacco UseTypesPacks/DayYears UsedDateSmoking Tobacco: Every DayCigarettes Alcohol UseStandard Drinks/WeekCommentsNever0 (1 standard drink = 0.6 oz pure alcohol)CommentsNoSex and Gender InformationValueDate RecordedSex Assigned at BirthNot on fileLegal SnlJmlred03/15/2023 6:47 PM EDTGender Identity Not on fileSexual OrientationNot on filedocumented as of this encounter Miscellaneous Notes * Telephone Encounter - Zeny Francis NP - 10/29/2025 2:00 PM EST I spoke with Camryn today regarding her Dexa Scan from 10/20/25. She has continued to take Calciumand Vitamin D. She does have Stage III Renal Failure. Will plan on trialing Prolia given her history of Kidney Disease. documented in this encounter Plan of Treatment DateTypeDepartmentCare Team (Latest Contact Info)Eoidiazvyjk59/09/2026 3:00 PM ESTProcedure Visit [facility] [address] [place] [address] Garth Mcrae DO [address] [place] [address] documented as of this encounter Visit Diagnoses Not on filedocumented in this encounter Care Teams Team MemberRelationshipSpecialtyStart DateEnd Date Landon Tomlinson MD [address] [place] [address] PCP - GeneralFamily Evrmydta46/15/24documented as of this encounter
--- OUTSIDE RECORDS SUMMARY | 2025-11-03 11:00 | XMS_ITS | Encounter Summary ---
Author Organization [facility] Address [address] [place] [address] Care Team Providers Care Diploma Maker Name Role Phone Landon Tomlinson MD Primary Care Provider [phone] Encounter Details DateTypeDepartmentCare Team (Latest Contact Info)Uktxtunoqhp13/19/2025bstract [facility] [address] [place] [address] [place] [address] Garth Mcrae DO [address] [place], [place] [address] Social History Tobacco UseTypesPacks/DayYears UsedDateSmoking Tobacco: Every DayCigarettes Alcohol UseStandard Drinks/WeekCommentsNever0 (1 standard drink = 0.6 oz pure alcohol)CommentsNoSex and Gender InformationValueDate RecordedSex Assigned at BirthNot on fileLegal XphEmrtxu00/15/2023 6:47 PM EDTGender Identity Not on fileSexual OrientationNot on filedocumented as of this encounter Plan of Treatment DateTypeDepartmentCare Team (Latest Contact Info)Gzgyxnhcdtp42/09/2026 3:00 PM ESTProcedure Visit [facility] [address] [place] [address] Garth Mcrae DO [address] [place], [place] [address] documented as of this encounter Visit Diagnoses Not on filedocumented in this encounter Care Teams Team MemberRelationshipSpecialtyStart DateEnd Date Landon Tomlinson MD [address] [place] [address] PCP - GeneralFamily Axzmdsxp71/15/24documented as of this encounter
--- OUTSIDE RECORDS SUMMARY | 2025-11-03 11:00 | XMS_ITS | Clinical Summary ---
Author Organization [facility] Address [address] [place] [address] Care Team Providers Care Open Hearth Worker Name Role Phone Unavailable Primary Care Provider Unavailabl e Social History Tobacco UseTypesPacks/DayYears UsedDateSmoking Tobacco: Never Assessed CommentsUnknownSex and Gender InformationValueDate RecordedSex Assigned at Not on fileLegal GkjQuoszd32/28/2025 11:48 AM EDTGender IdentityNot on file Sexual OrientationNot on file Plan of Treatment Not on file
--- OUTSIDE RECORDS SUMMARY | 2025-11-03 11:00 | XMS_ITS | Clinical Summary ---
Author Organization [facility] Address [address] [place] [address] Care Team Providers Care Solvent Process Extractor Operator Name Role Phone Landon Tomlinson MD Primary Care Provider Allergies Active AllergyReactionsCriticalityNoted DateCommentsAspirinHives,Other09/25/2017 Medications MedicationSigDispense QuantityRefillsLast [...] capsule (10 mcg) before bedtime. 60 capsule 5112/15/2024Expired Encounters DateTypeDepartmentCare FvbyPypevdctlea82/19/2025[place] [phone] Meek Mcrae, 10/29/2025[place] [phone] Zeny Francis NP 10/20/2025linisync Result Encounter NOMS External Department Unsolicited Meek Mcrae, 10/05/2025[place] [phone] Jeanne Aguirre MA 09/14/2025 3:40 PM [place] [address] Meek Mcrae, Well woman exam with routine gynecological exam; Encounter for screening mammogram for malignant neoplasm of breast; Osteoporosis, post-mhynuoxuyz17/03/2025linisync Result Encounter [facility]OMS External Department Unsolicited Meek Mcrae DO 09/14/2025amboo [place] [address] Meek Mcrae, from Last 3 Months Family History Medical HistoryRelationNameCommentsLung cancerFatherHeart attackMotherRelation NameStatusCommentsFatherDeceasedMotherDeceased Social History Tobacco UseTypesPacks/DayYears UsedDateSmoking Tobacco: Every DayCigarettes Tobacco Cessation:Ready to Q uit: Not Asked; Counseling Given: Not Answered Alcohol UseStandard Drinks/WeekCommentsNever0 (1 standard drink = 0.6 oz pure alcohol)CommentsNoSex and Gender InformationValueDate RecordedSex Assigned at BirthNot on fileLegal ZuxJbtark37/15/2023 6:47 PM EDTGender Identity Not on fileSexual OrientationNot on file Last Filed Vital Signs Vital SignReadingTime TakenCommentsBlood Uvtjpqlz498/6809/14/2025 3:54 PM EST Pulse--Temperature--Respiratory Rate--Oxygen Saturation--Inhaled Oxygen Concentration--Llbarc35.6 kg (127 lb)09/14/2025 3:54 PM TVNIincst324.1 cm (5' 5 )09/14/2025 3:54 PM ESTBody Mass Index21.13111/14/2024 3:54 PM EST Plan of Treatment DateTypeDepartmentCare Team (Latest Contact Info)Nrwjvlmwcor73/09/2026 3:00 PM ESTProcedure Visit [facility] [address] [facility] [place] [phone] Meek Mcrae, DO [address] [place] [address] Procedures Procedure NamePriorityDate/TimeAssociated DiagnosisCommentsMM TOMOSYNTHESIS SCREENING BI10/20/2025 1:57 PM EST IGP,APTIMA HPV,AGE OLNFTsobqrw87/03/2025 3:45 PM EST HPV/PAP COTEST, SDEWMCAZBigkdey83/03/2025 12:00 AM ESTfrom Last 3 Months Results * MM TOMOSYNTHESIS SCREENING BI (10/20/2025 1:57 PM EST)Anatomical Region LateralityModalityOtherSpecimen (Source)Anatomical Location / Laterality Collection Method / VolumeCollection TimeReceived Time10/20/2025 1:57 PM EST Narrative 10/20/2025 1:59 PM EST [facility] ?[address] ? [place] [address] ? Mammography Report ? Signed ? Patient: CAMRYN GARCIA ?MR#: [id number] ?? : 1970 ?Acct:[id number] ?? Age/Sex: 55 / F ?ADM Date: 12/ ?? Loc: RAD ? Attending Dr: Meek Mcrae D.O. ? Ordering Physician: Meek Mcrae D.O. ?Results: ? Date of Service: 10/20/25 ?Follow Up: ? Procedure(s): MM tomosynthesis screening BI ?? Accession Number(s): [id number] ? cc: Meek Mcrae D.O.; ANATOLY DUNHAM ? Patient Name: ? CAMRYN GARCIA ? MR#: [id number] ? : 1970 ? Exam Date: 10/20/2025 ?? Ordering Doctor: DR MEEK MCRAE . ? RADIOLOGY REPORT ? PROCEDURE: ? MM TOMOSYNTHESIS SCREENING BI ? COMPARISON: ? MM TOMOSYNTHESIS SCREENING BI, 09/25/2024. ??MM TOMOSYNTHESIS ?? SCREENING BI, 09/12/2023. ??MG MAMM CHARLES DIAG W CAD DIG, 02/22/2016. ??MG MAMM CHARLES ?? SCRN W CAD DIG, 09/02/2013. ? INDICATIONS: ? Screening ? Calculator Name ? NCI Breast Cancer Risk Assessment Tool ?? 5 Year Breast Cancer Risk ? 0.80% ?? Lifetime Breast Cancer Risk ? 5.20% ?? Personal Breast Cancer ?No ?? Personal Ovarian Cancer ? No ?? Treatments ? None ?? Family Cancers ? Father with lung cancer at age 65. ? LOCATION: ? [facility] ? BREAST COMPOSITION: ? The breasts are extremely dense, which lowers the ?? sensitivity of mammography. ? FINDINGS: ? RIGHT BREAST: ??No significant suspicious finding. ??Benign-appearing ?? calcifications are present along with similar focal asymmetries. ? LEFT BREAST: ??No significant suspicious finding. ??Benign-appearing ?? calcifications are present. ? DIAGNOSTIC CATEGORY 2--BENIGN FINDING. NO CHANGE FROM COMPARISON. ? RECOMMENDATIONS: ? ROUTINE MAMMOGRAM AND CLINICAL EVALUATION IN 12 MONTHS. ? Dictated by: Torsten León MD on 10/20/2025 at 13:51 ? Approved by: Torsten León MD on 10/20/2025 at 13:57 ? Dictated By: ?Torsten León M.D. ? Signed By: ?10/20/259 ? DD/ 1357 ? TD/TT: ? Proj Mgr: Procedure Note Radiology, Radiologist, MD - 10/20/2025 [place] [address] Mammography Report Signed Patient: CAMRYN GARCIA DMR#: [id number] : 1970Acct:[id number] Age/Sex: 55 / FADM Date: 10/20/25 Loc: RAD Attending Dr: Meek Mcrae D.O. Ordering Physician: Meek Mcrae D.O.Results: Date of Service: 10/20/25Follow Up: Procedure(s): MM tomosynthesis screening BI Accession Number(s): [id number] cc: Meek Mcrae D.O.; ANATOLY DUNHAM Patient Name: CAMRYN GARCIA MR#: [id number] : 1970 Exam Date: 10/20/2025 Ordering Doctor: DR MEEK MCRAE . RADIOLOGY REPORT PROCEDURE: MM TOMOSYNTHESIS SCREENING BI COMPARISON: MM TOMOSYNTHESIS SCREENING BI, 09/25/2024. MMTOMOSYNTHESIS SCREENING BI, 09/12/2023. MG MAMM CHARLES DIAG W CAD DIG, 02/22/2016. MG MAMMBIL SCRN W CAD DIG, 09/02/2013. INDICATIONS: Screening Calculator Name NCI Breast Cancer Risk Assessment Tool 5 Year Breast Cancer Risk 0.80% Lifetime Breast Cancer Risk 5.20% Personal Breast Cancer No Personal Ovarian Cancer No Treatments None Family Cancers Father with lung cancer at age 65. LOCATION: [facility] BREAST COMPOSITION: The breasts are extremely dense, which lowers the sensitivity of mammography. FINDINGS: RIGHT BREAST: No significant suspicious finding. Benign-appearing calcifications are present along with similar focal asymmetries. LEFT BREAST: No significant suspicious finding. Benign-appearing calcifications are present. DIAGNOSTIC CATEGORY 2--BENIGN FINDING. NO CHANGE FROM COMPARISON. RECOMMENDATIONS: ROUTINE MAMMOGRAM AND CLINICAL EVALUATION IN 12 MONTHS. Dictated by: Torsten León MD on 10/20/2025 at 13:51 Approved by: Torsten León MD on 10/20/2025 at 13:57 Dictated By: Torsten León M.D. Signed By:10/20/25 1359 DD/ 1357 TD/TT: Proj Mgr: Authorizing ProviderResult TypeResult StatusCorey Clementina DOCLINISYNC IMAGINGFinal Result * (ABNORMAL) IGP,APTIMA HPV,AGE GDLN (09/14/2025 3:45 PM EST)ComponentValueRef RangeTest MethodAnalysis TimePerformed AtPathologist SignatureAGE GDLN ACOG TESTINGNote.TBHComment: ?? TESTS ? RESULT ??FLAG ??UNITS ?REF RANGE ??LAB ?? Clinician Provided Cytology Information ?? Source.............Vagina ?? No. of containers..01 ThinPrep Vial Age Algo ACOG Maricruz... ??30-65 ? 01 ?FLAG LEGEND: ?L-Low Normal,H-High Normal,LL-Alert Low,HH-Alert High <-Panic Low,>-Panic High,A-Abnormal,AA-Critical Abnormal Performed at: 01 =G ?[facility] ?? [address] [place] [place] ??[phone] ?? Tosha Malcolm MD, IGP, APTIMA HPV, RFX 16/18,45Note(A).TBHComment: ?? TESTS ? RESULT ??FLAG ??UNITS ?REF RANGE ??LAB DIAGNOSIS: ? [A] ?02 ?? EPITHELIAL CELL ABNORMALITY. ?? ATYPICAL SQUAMOUS CELLS OF UNDETERMINED SIGNIFICANCE (ASC-US). Specimen adequacy: ?02 ?? Satisfactory for evaluation. No endocervical component is identified. Performed by: ? 02 ?? Dahiana Barbour, Community Liaison (ASCP) Electronically si... ?02 ?? Renu Millard MD, Pathologist . ? 02 Pathologist ICD10: ?02 ?? R87.610 Note: ? Note ?02 ?? The Pap smear is a screening test designed to aid in the ?? detection of premalignant and malignant conditions of the ?? uterine cervix. ??It is not a diagnostic procedure and ?? should not be used as the sole means of detecting cervical ?? cancer. ??Both false-positive and false-negative reports do ?? occur. Test Methodology: ? Note ?02 ?? This liquid based ThinPrep(R) pap test was interpreted ?? using the Delivery Agent(R) Carestreamius(TM) Cervical Algorithm whole ?? slide imaging system. HPV Genotype Reflex ?? Note ?02 ?? Criteria not met, HPV Genotype not performed. ?FLAG LEGEND: ?L-Low Normal,H-High Normal,LL-Alert Low,HH-Alert High <-Panic Low,>-Panic High,A-Abnormal,AA-Critical Abnormal Performed at: 02 WB ?[facility] ?? [address], [place] ??[phone] ?? Tosha Malcolm MD, HPV APTIMANegativeNegativeTBHComment: This nucleic acid amplification test detects fourteen high- risk HPV types (16,18,31,33,35,39,45,51,52,56,58,59,66,68) without differentiation. Performed at: ??=G - [facility] ??[id number] Marketing Teacher: Tosha Malcolm MD, Phone: ??[phone] Performed at: ??WB - [facility] ??[id number] Marketing Teacher: Tosha Malcolm MD, Phone: ??[phone] Specimen (Source)Anatomical Location / LateralityCollection Method / Volume Collection TimeReceived Time09/14/2025 3:45 PM EST09/14/2025 8:56 PM EST Narrative [facility]IN[facility] - 09/18/2025 1:08 PM EST SPATULA-ALONE VAGINA Authorizing ProviderResult TypeResult StatusCorey Clementina DOLAB BLOOD ORDERABLES Final ResultPerforming OrganizationAddressCity/State/ZIP CodePhone Number [facility] * (ABNORMAL) HPV/PAP COTEST, EXTERNAL (09/14/2025 12:00 AM EST) Narrative Authorizing ProviderResult TypeResult StatusCorey Clementina DOLAB CYTOLOGY ORDERABLESFinal ResultPerforming OrganizationAddressCity/State/ZIP CodePhone Number EXTERNAL LAB from Last 3 Months Insurance Care Teams Team MemberRelationshipSpecialtyStart DateEnd Date Landon Tomlinson MD [address] [place] [address] PCP - GeneralFamily Zedydndq66/15/24
--- OUTSIDE RECORDS SUMMARY | 2025-11-03 11:00 | XMS_ITS | Encounter Summary ---
Author Organization [facility] Address [address] [place] [address] Care Team Providers Care Pillowcase Maker Name Role Phone Landon Tomlinson MD Primary Care Provider [phone] Encounter Details DateTypeDem[facility]erryvilleCare Team (Latest Contact Info)Ylcftsllceo38/09/2025linisync Result Encounter [facility] External Department Unsolicited Meek Mcrae DO [address] [place], [facility] Social History Tobacco UseTypesPacks/DayYears UsedDateSmoking Tobacco: Every DayCigarettes Alcohol UseStandard Drinks/WeekCommentsNever0 (1 standard drink = 0.6 oz pure alcohol)CommentsNoSex and Gender InformationValueDate RecordedSex Assigned at BirthNot on fileLegal WqyOoogfn09/15/2023 6:47 PM EDTGender Identity Not on fileSexual OrientationNot on filedocumented as of this encounter Plan of Treatment DateTypeDemercy hospital berryvilleCare Team (Latest Contact Info)Seduwmbzkqz12/09/2026 3:00 PM ESTProcedure Visit [facility] [address] [place] [address] Meek Mcrae DO [address] [place], [place] [phone] documented as of this encounter Procedures Procedure NamePriorityDate/TimeAssociated DiagnosisCommentsMM TOMOSYNTHESIS SCREENING BI10/20/2025 1:57 PM EST documented in this encounter Results * MM TOMOSYNTHESIS SCREENING BI (10/20/2025 1:57 PM EST)Anatomical Region LateralityModalityOtherSpecimen (Source)Anatomical Location / Laterality Collection Method / VolumeCollection TimeReceived Time10/20/2025 1:57 PM EST Narrative 10/20/2025 1:[address] [facility] ?[address] ? [place] [address] ? Mammography Report ? Signed ? Patient: CAMRYN WILLIAMSON D ?MR#: [id number] ?? : 1970 ?Acct:[id number] ?? Age/Sex: 55 / F ?ADM Date: 10/20/25 ?? Loc: RAD ? Attending Dr: Meek Mcrae D.O. ? Ordering Physician: Meek Mcrae D.O. ?Results: ? Date of Service: 10/20/25 ?Follow Up: ? Procedure(s): MM tomosynthesis screening BI ?? Accession Number(s): [id number] ? cc: Meek Mcrae D.O.; ANATOLY DUNHAM ? Patient Name: ? CAMRYN WILLIAMSON ? MR#: [id number] ? : 1970 ? Exam Date: 10/20/2025 [...] at age 63. ? LOCATION: ? [facility] ? BREAST COMPOSITION: ? The breasts [...] By: ?Torsten León M.D. ? Signed By: ?10/20/25 1359 ? DD/ 1357 ? TD/TT: ? Pecan Cleaner: Procedure Note Radiology, Radiologist, MD - 10/20/2025 [place] [address] Mammography Report Signed Patient: CAMRYN WILLIAMSON [facility]#: [id number] : 1970Acct:[id number] Age/Sex: 55 / FADM Date: 10/20/25 Loc: RAD Attending Dr: Meek Mcrae D.O. Ordering Physician: Meek Mcrae D.O.Results: Date of Service: 10/20/25Follow Up: Procedure(s): MM tomosynthesis screening BI Accession Number(s): [id number] cc: Meek Mcrae D.O.; ANATOLY DUNHAM Patient Name: CAMRYN WILLIAMSON MR#: [id number] : 1970 Exam Date: 10/20/2025 Ordering Doctor: [...] lung cancer at age 63. LOCATION: [facility] BREAST COMPOSITION: The breasts are extremely [...] M.D. Signed By:10/20/25 1359 DD/ 1357 TD/TT: Pecan Cleaner: Authorizing ProviderResult TypeResult StatusCorey Clementina DOCLINISYNC IMAGINGFinal Result documented in this encounter Visit Diagnoses Not on filedocumented in this encounter Care Teams Team MemberRelationshipSpecialtyStart DateEnd Date Landon Tomlinson MD [address] [place] [address] PCP - GeneralFamily Wvyjnmui69/15/24documented as of this encounter
--- OUTSIDE RECORDS SUMMARY | 2025-11-03 11:00 | XMS_ITS | Clinical Summary ---
Author Organization [facility] Address [facility] [address] [place] [address] Care Team Providers Care Form Grader Operator Name Role Phone Jeannette Srinivasan MD Primary Care Provider Allergies Active AllergyReactionsCriticalityNoted PtqkWzgpcsxxHckbibbKyhge92/14/2017 Medications MedicationSigDispense QuantityRefillsLast FilledStart DateEnd DateStatus venlafaxine (EFFEXOR) 37.5 mg tablet Take 37.5 mg by mouth daily.Active celecoxib (CeleBREX) 200 mg capsule Take 200 mg by mouth as needed for pain.Active Family History Medical HistoryRelationNameCommentsCancerFatherlungHeart failureMotherRelation NameStatusCommentsFatherDeceasedMotherDeceased Social History Tobacco UseTypesPacks/DayYears UsedDateSmoking Tobacco: Every DayCigarettes Smokeless Tobacco: NeverAlcohol UseStandard Drinks/WeekCommentsYes4 (1 standard drink = 0.6 oz pure alcohol)ChildcareAnswerDate RecordedChildcareUnknown 04/23/2019EmploymentAnswerDate WdvfmawzJhkdkhpdoiUiwxapx64/12/2019Purpose - Life AnswerDate RecordedPurpose and direction in khmhQroawze91/11/2021 CommentsNoSex and Gender InformationValueDate RecordedSex Assigned at BirthNot on fileLegal SkqRioqxr46/06/2015 11:34 AM EDTGender IdentityNot on fileSexual OrientationNot on file Last Filed Vital Signs Vital SignReadingTime TakenCommentsBlood Fviovooy441/8810/10/2017 9:00 AM EST Mdzaf144010/10/2017 8:45 AM JPLHwrhzeegxuf07.6 ??C (97.9 ??F)10/10/2017 6:29 AM ESTRespiratory Jygb931112/10/2016 6:29 AM ESTOxygen Wiifuknpte387%10/10/2017 8:30 AM ESTInhaled Oxygen Concentration--Ibubur49.7 kg (125 lb)10/10/2017 6:29 AM EST Iyzqad076.6 cm (5' 6 )10/10/2017 6:29 AM ESTBody Mass Index20.18112/10/2016 6:29 AM EST Plan of Treatment Not on file Medical Devices Not on file Insurance Care Teams Team MemberRelationshipSpecialtyStart DateEnd Jeannette Srinivasan MD PCP - GeneralFamily Yxbhruwd59/29/17
--- NOTE | 2025-11-03 11:06 | XR_ITS ---
The [address] [address] Patient Name: MESFIN WILLIAMSON MRN: [facility]:[id number] date: 1970 Sex: F Assigned Patient Location: [facility] Current Patient Location: [facility] Accession/Order Number: [id number] Exam Date: 11/03/2025 11:10 Report Date: 11/03/2025 11:47 At the request of: ANATOLY DUNHAM Procedure: XR foot LT min 3V LEFT FOOT - 3 views CLINICAL DATA: Hyperextension injury of the left foot during fall. Distal metatarsal pain. COMPARISON: None AP, lateral and oblique views were obtained. There is no evidence of fracture or dislocation. There are no significant soft tissue abnormalities. XR/XR foot LT min 3V IMPRESSION: NO ACUTE BONY INJURY. Impression dictated by: Tegan Charles M.D. 11/03/2025 11:47 AM Dictation Location: [place] [address] Electronically authenticated by: [id number] Y Date: 11/03/2025 11:47
== END 2025-11-03 10:56 | disposition home or self-care (01) ==
LOC: RAD 10:58
PROVIDERS: PCP Nurse Practitioner Family; Visit Provider Nurse Practitioner Family
DX: M79.672 Pain in left foot (principal); W19.XXXA Unspecified fall, initial encounter
CPT/HCPCS: 73630